=== PATIENT | female | born 1965 ===

== ENCOUNTER 2017-07-31 15:48 | Inpatient (IN) | payer OTHER ==
[2017-07-31] MEDS ORDERED: Etomidate 20 mg/10ml Inj IVP STA (15:55)
[2017-07-31] MEDS ORDERED: Succinylcholine 200 mg/10 ml Inj IV STA (15:55)
[2017-07-31] MEDS: Propofol 10 mg/ml 1,000 MG/100 ML VIAL IV PRN ×2 (16:10→21:45)
--- NOTE | 2017-07-31 16:11 | ED PDOC ---
Arrival/HPI - General Time Seen by Provider: 07/31/17 15:50 - Critical Care Critical Care Minutes: 45 minutes Narrative Critical Care (Text): Seen immediately upon my arrival for life threatening condition. Required my constant presence at bedside initially and frequent re-evaluations, ICU consultation. - History of Present Illness Narrative History of Present Illness (Text): 52 y/o F c unknown PMHx BIBEMS c respiratory distress. Patient was seen by bystander outside in respiratory distress and called EMS. EMS reports patient was agitated and uncooperative, required Ketamine. Decreased breath sounds, administered Magnesium, Terbutaline, solumedrol, and duoneb and placed on CPAP. Pulse oximetry improved from 70% to 100%. End tidal CO2 improved from 70s to 60s. Patient could only say "can't breathe." An inhaler was found at the site. Further HPI/ROS unobtainable due to patient's condition. Family/Social History Family/Social History: Unknown Family HX Allergies/Home Meds Allergies/Adverse Reactions: Allergies Unobtainable Allergy (Verified 07/31/17 15:50) Home Medications: Home Meds Medication Instructions Recorded Confirmed Unobtainable 07/31/17 07/31/17 Review of Systems - Review of Systems Systems not reviewed;Unavailable: Altered Mental Status Physical Exam - Physical Exam Narrative Physical Exam (Text): Gen: In respiratory distress Head: Atraumatic Eyes: PERRL ENT: Drooling Neck: Supple CV: Tachycardic Lungs: Decreased breath sounds. Minimal wheeze. Tachypneic. Accessory muscle use. Abd: Soft Extremities: No edema Skin: No rash Neuro: Obtunded Vital Signs Temp Pulse Resp BP Pulse Ox 07/31/17 17:21 110 H 20 109/62 99 07/31/17 17:12 104 H 20 132/82 99 07/31/17 16:07 99.7 F H 120 H 28 H 148/84 98 Medical Decision Making ED Course and Treatment: Intubated for impending respiratory failure. Propofol IV drip ordered. 07/31/17 16:50 HISTORY: intubated, dyspnea COMPARISON: No prior. FINDINGS: The endotracheal tube terminates 3.3 cm proximal to the carlene. LUNGS: There is severe pulmonary venous congestion and interstitial pulmonary edema with diffuse haziness in the right lung and consolidation in the right lower lobe. PLEURA: No significant pleural effusion identified, no pneumothorax apparent. CARDIOVASCULAR: Normal. OSSEOUS STRUCTURES: No significant abnormalities. VISUALIZED UPPER ABDOMEN: Normal. OTHER FINDINGS: None. IMPRESSION: Endotracheal tube terminates 3.3 cm proximal to the carlene. Severe pulmonary venous congestion and presumable right alveolar pulmonary edema. Dense consolidation in the right lower lobe. Patient's friend arrived in ED, states patient has smoking history and asthma. States they were walking dog together, patient began becoming short of breath, which is not unusual as per friend, left friend with dog to get inhaler and after 20 or so minutes of no return, friend headed back and saw that patient was being attended to by EMS. Patient with hypercarbia, pulmonary edema, afebrile, will cover with CAP antibiotics. Dr. Bartholomew accepts to medical service. - Lab Interpretations Lab Results: 07/31/17 16:00 07/31/17 16:00 Lab Results 07/31/17 16:43: Urine Color Yellow, Urine Appearance Sl cloudy, Urine pH 5.5, Ur Specific [place] >= 1.030, Urine Protein 30 H, Urine Glucose (UA) Negative, Urine Ketones Negative, Urine Blood Large H, Urine Nitrate Negative, Urine Bilirubin Negative, Urine Urobilinogen 0.2, Ur Leukocyte Esterase Negative, Urine RBC Tntc, Urine WBC 15 - 20, Ur Epithelial Cells Many, Amorphous Sediment Few, Urine Bacteria Mod, Urine HCG, Qual Negative 07/31/17 16:42: pCO2 54 H, pO2 404.0 H, HCO3 22.1, ABG pH 7.22 L, ABG Total CO2 23.8, ABG O2 Saturation 100.7 H, ABG O2 Content 20.5, ABG Base Excess -6.2 L, ABG Hemoglobin 14.3, ABG Carboxyhemoglobin 3.1 H, POC ABG HHb (Measured) -0.7 L , ABG Methemoglobin 1.1, ABG O2 Capacity 20.4, Hgb O2 Saturation 96.6, FiO2 100.0 07/31/17 16:00: Sodium 141, Potassium 3.9, Chloride 102, Carbon Dioxide 23, Anion Gap 20, BUN 17, Creatinine 0.8, Est GFR ( Amer) > 60, Est GFR (Non- Af Amer) > 60, Random Glucose 309 H*, Calcium 9.5, Total Bilirubin 0.8, AST 33, ALT 34, Alkaline Phosphatase 96, Total Creatine Kinase 110, Troponin I < 0.01, NT-Pro-B Natriuret Pep 416, Total Protein 8.0, Albumin 4.6, Globulin 3.4, Albumin/Globulin Ratio 1.3 07/31/17 16:00: WBC 14.2 H, RBC 5.08, Hgb 15.0, Hct 46.2, MCV 90.9, MCH 29.5, MCHC 32.5, RDW 13.6, Plt Count 372, MPV 11.2 H, Gran % 65.0, Lymph % (Auto) 29.7 , [place] % (Auto) 3.7, Eos % (Auto) 1.2 L, Baso % (Auto) 0.4, Gran # 9.23 H, Lymph # (Auto) 4.2 H, [place] # (Auto) 0.5, Eos # (Auto) 0.2, Baso # (Auto) 0.06 - RAD Interpretation Radiology Orders: 07/31/17 15:51 CHEST PORTABLE [RAD] Stat 08/01/17 07:00 CHEST PORTABLE [RAD] DAILY 08/02/17 07:00 CHEST PORTABLE [RAD] DAILY 08/03/17 07:00 CHEST PORTABLE [RAD] DAILY - Medication Orders Current Medication Orders: Albuterol/Ipratropium (Duoneb 3 Mg/0.5 Mg (3 Ml) Ud) 3 ml IH Q2H PRN PRN Reason: Shortness of Breath Albuterol/Ipratropium (Duoneb 3 Mg/0.5 Mg (3 Ml) Ud) 3 ml IH [id number] JUAN ALBERTO Enoxaparin Sodium (Lovenox) 40 mg SC DAILY JUAN ALBERTO PRN Reason: Protocol Furosemide (Lasix) 40 mg IVP DAILY JUAN ALBERTO Propofol (Diprivan) 1,000 mg in 100 mls @ 0 mls/hr IV .Q0M PRN; Protocol; 5 MCG /KG/MIN PRN Reason: TITRATE PER MD ORDER Midazolam 100 mg/100ml in NS (Midazolam 100 Mg/100ml In Ns) 100 mg in 100 mls @ 1 mls/hr IV .Q24H PRN; Protocol; 1 MG/HR PRN Reason: Sedation Last Admin: 07/31/17 17:50 Dose: 3 mls/hr Comments: titrated eMAR Start Stop Document 07/31/17 17:50 SF (Rec: 07/31/17 17:51 SF [id number]) Intravenous Solution Start Date 07/31/17 Start Time 17:50 Ceftriaxone Sodium (Rocephin 1 Gram Ivpb) 1 gm in 100 mls @ 100 mls/hr IVPB DAILY JUAN ALBERTO PRN Reason: Protocol Azithromycin (Zithromax 500mg In Ns) 500 mg in 250 mls @ 167 mls/hr IVPB DAILY JUAN ALBERTO PRN Reason: Protocol Fentanyl Citrate (Fentanyl Citrate/Sodium Chloride 1 Mg/100 Ml) 1,000 mcg in 100 mls @ 2 mls/hr IV .Q24H PRN; Protocol; 20 MCG/HR PRN Reason: TITRATE PER MD ORDER Insulin Human Regular (Humulin R Low) 0 units SC Q6 JUAN ALBERTO PRN Reason: Protocol Methylprednisolone (Solu-Medrol) 40 mg IVP Q8 JUAN ALBERTO Pantoprazole Sodium (Protonix Inj) 40 mg IVP DAILY JUAN ALBERTO Discontinued Medications Etomidate (Amidate) 20 mg IVP STAT STA Stop: 07/31/17 15:56 Last Admin: 07/31/17 15:48 Dose: 20 mg IVP Administration Document 07/31/17 15:48 SF (Rec: 07/31/17 17:55 SF [id number]) Charges for Administration # of IVP Administrations 1 Furosemide (Lasix) 40 mg IVP STAT STA Stop: 07/31/17 17:32 Ceftriaxone Sodium (Rocephin 1 Gram Ivpb) 1 gm in 100 mls @ 100 mls/hr IVPB STAT STA PRN Reason: Protocol Stop: 07/31/17 17:47 Last Admin: 07/31/17 17:10 Dose: 100 mls/hr eMAR Start Stop Document 07/31/17 17:10 SZA (Rec: 07/31/17 17:10 SZA [id number]) Intravenous Solution Start Date 07/31/17 Start Time 17:10 End Date 07/31/17 End time 17:40 Total Infusion Time 30 Azithromycin (Zithromax 500mg In Ns) 500 mg in 250 mls @ 167 mls/hr IVPB STAT STA PRN Reason: Protocol Stop: 07/31/17 18:17 Succinylcholine Chloride (Quelicin) 100 mg IV STAT STA Stop: 07/31/17 15:56 Last Admin: 07/31/17 15:48 Dose: 100 mg eMAR Start Stop Document 07/31/17 15:48 SF (Rec: 07/31/17 17:55 SF [id number]) Intravenous Solution Start Date 07/31/17 Start Time 13:42 End Date 07/31/17 Disposition/Present on Arrival - Present on Arrival Any Indicators Present on Arrival: No - Disposition Have Diagnosis and Disposition been Completed?: Yes Diagnosis: Respiratory failure, Hypercapnia, Pulmonary edema Disposition: HOSPITALIZED Disposition Time: 17:40 Patient Plan: ICU Condition: CRITICAL Endotracheal Intubation - Endotracheal Intubation Intubated With ETT Size: 75 Blade Type Used: Curved Indication: Respiratory Failure Intubated: Orally Pre-Intubation Airway Assessment: Ventilated And Oxygenated Medications Used During Pre-Intubation: Etomidate Paralyzed With: Succinylcholine Post-Intubation Assessment: ETT Secured AT (cm): (21), Breath Sounds Equal Bilat , Placement Confirmed Via CXR, Color Change W/End Tidal CO2 Detector, Oxygen Saturation: (100)
[2017-07-31 16:44] LABS: ARTERIAL BLOOD GAS HCO3 22.1 mmol/L (21-28); ARTERIAL BLOOD GAS HEMOGLOBIN 14.3 g/dL (11.7-17.4); ARTERIAL BLOOD GAS O2 CAPACITY 20.4 mL/dl (16-24); ARTERIAL BLOOD GAS O2 CONTENT 20.5 ML/dl (15-23); ARTERIAL BLOOD GAS O2 SAT 100.7 % (95-98); ARTERIAL BLOOD GAS PCO2 54 mm/Hg (35-45); ARTERIAL BLOOD GAS PH 7.22 (7.35-7.45); ARTERIAL BLOOD GAS TCO2 23.8 mmol.L (22-28)
--- NOTE | 2017-07-31 16:46 | RAD ---
HISTORY: intubated, dyspnea COMPARISON: No prior. FINDINGS: The endotracheal tube terminates 3.3 cm proximal to the carlene. LUNGS: There is severe pulmonary venous congestion and interstitial pulmonary edema with diffuse haziness in the right lung and consolidation in the right lower lobe. PLEURA: No significant pleural effusion identified, no pneumothorax apparent. CARDIOVASCULAR: Normal. OSSEOUS STRUCTURES: No significant abnormalities. VISUALIZED UPPER ABDOMEN: Normal. OTHER FINDINGS: None. IMPRESSION: Endotracheal tube terminates 3.3 cm proximal to the carlene. Severe pulmonary venous congestion and presumable right alveolar pulmonary edema. Dense consolidation in the right lower lobe.
[2017-07-31 16:47] LABS: BASO # 0.06 K/mm3 (0.0-2.0); BASO % 0.4 % (0.0-3.0); EOS # 0.2 (0.0-0.7); EOS % 1.2 % (1.5-5.0); GRAN # 9.23 (1.4-6.5); LYMPH # 4.2 (1.2-3.4); LYMPH % 29.7 % (22.0-35.0); MEAN CELL VOLUME 90.9 fl (80.0-105.0); MEAN CORPUSCULAR HEMOGLOBIN 29.5 pg (25.0-35.0); MEAN CORPUSCULAR HGB CONC 32.5 g/dl (31.0-37.0); MEAN PLATELET VOLUME 11.2 fl (7.0-11.0); MONO # 0.5 (0.1-0.6); MONO % 3.7 % (1.0-6.0); RBC 5.08 10^6/uL (3.5-6.1); RED CELL DISTRIBUTION WIDTH 13.6 % (11.5-14.5); WHITE BLOOD COUNT 14.2 10^3/ul (4.5-11.0)
[2017-07-31 16:48] LABS: PH,URINE 5.5 (4.7-8.0); URINE BILIRUBIN NEGATIVE (NEGATIVE); URINE BLOOD LARGE (NEGATIVE); URINE GLUCOSE (UA) NEGATIVE (NEGATIVE); URINE LEUKOCYTE ESTERASE NEGATIVE Leu/uL (NEGATIVE); URINE PROTEIN 30 mg/dL (<30 mg/dL); URINE UROBILINOGEN 0.2 E.U./dL (<1 E.U./dL)
[2017-07-31] MEDS ORDERED: cefTRIAXone 1 gm 1 GM/100 ML BAG IVPB STA (16:48)
[2017-07-31] MEDS ORDERED: Azithromycin 500MG/NS 250ml 500 MG/250 ML BAG IVPB STA (16:48)
[2017-07-31 16:54] LABS: URINE COLOR YELLOW (YELLOW)
[2017-07-31 16:55] LABS: URINE APPEARANCE SL CLOUDY (CLEAR)
[2017-07-31 17:03] LABS: URINE AMORPHOUS SEDIMENT FEW; URINE BACTERIA MOD (NEG); URINE EPITHELIAL CELLS MANY /hpf (0-5); URINE RBC TNTC /hpf (0-2); URINE WBC 15 - 20 /hpf (0-6)
[2017-07-31 17:09] LABS: B-TYPE NATRIURETIC PEPTIDE 416 pg/mL (0-450); TROPONIN I < 0.01 ng/mL
[2017-07-31] MEDS: Midazolam 100 mg/100ml in NS 100 MG/100 ML SOL IV PRN ×2 (17:10→17:50)
[2017-07-31 17:17] LABS: HCG,QUALITATIVE URINE NEGATIVE (NEGATIVE)
[2017-07-31 17:28] LABS: ALB/GLOB RATIO 1.3 (1.1-1.8); ALBUMIN 4.6 g/dL (3.0-4.8); ALT/SGPT 34 U/L (7-56); AST/SGOT 33 U/L (14-36); BLOOD UREA NITROGEN 17 mg/dL (7-21); CALCIUM 9.5 mg/dL (8.4-10.5); GFR AFRICAN-AMERICAN > 60; GFR NON-AFRICAN AMERICAN > 60
[2017-07-31] MEDS ORDERED: Albuterol-Ipratrop 3 mg / 0.5 (3 ml) UD IH PRN (17:36)
--- NOTE | 2017-07-31 17:56 | CP.PCM.CON ---
History of Present Illness - History of Present Illness History of Present Illness: CRITICAL CARE CONSULT NOTE HPI Patient is 52yo female with PMHx of Asthma, smoker 1 pk per day, presented to the ER by EMS with resp distress, stating " I can't breathe", agitated, uncooperative, requiring Ketamine in the field. Pt given Magnesium, Terbutaline , Duoneb, Solumedrol and placed on CPAP, with pulse ox improving from 70% to 100 %, but subsequently decompensated requiring intubation. Currently afebrile, HD stable, comfortable on ventilator, ABG acceptable, CXR with pulm vasc congestion PMHx as above PSHx as above Allergies NKDA Meds as per EMR ROS as above FHx NC Review of Systems - Review of Systems Review of Systems: as per HPI Past Patient History - Past Social History Smoking Status: Unknown If Ever Smoked - PULMONARY Hx Respiratory Disorders: Yes Hx Asthma: Yes - PSYCHIATRIC Hx Substance Use: No - SURGICAL HISTORY Hx Surgeries: No Meds Allergies/Adverse Reactions: Allergies Allergy/AdvReac Type Severity Reaction Status Date / Time Unobtainable Allergy Verified 07/31/17 15:50 - Medications Medications: Current Medications Albuterol/Ipratropium (Duoneb 3 Mg/0.5 Mg (3 Ml) Ud) 3 ml IH Q2H PRN PRN Reason: Shortness of Breath Albuterol/Ipratropium (Duoneb 3 Mg/0.5 Mg (3 Ml) Ud) 3 ml IH [id number] JUAN ALBERTO Propofol (Diprivan) 1,000 mg in 100 mls @ 0 mls/hr IV .Q0M PRN; Protocol; 5 MCG /KG/MIN PRN Reason: TITRATE PER MD ORDER Azithromycin (Zithromax 500mg In Ns) 500 mg in 250 mls @ 167 mls/hr IVPB STAT STA PRN Reason: Protocol Stop: 07/31/17 18:17 Midazolam 100 mg/100ml in NS (Midazolam 100 Mg/100ml In Ns) 100 mg in 100 mls @ 1 mls/hr IV .Q24H PRN; Protocol; 1 MG/HR PRN Reason: Sedation Last Admin: 07/31/17 17:10 Dose: 1 mls/hr Ceftriaxone Sodium (Rocephin 1 Gram Ivpb) 1 gm in 100 mls @ 100 mls/hr IVPB DAILY JUAN ALBERTO PRN Reason: Protocol Azithromycin (Zithromax 500mg In Ns) 500 mg in 250 mls @ 167 mls/hr IVPB DAILY JUAN ALBERTO PRN Reason: Protocol Methylprednisolone (Solu-Medrol) 40 mg IVP Q8 JUAN ALBERTO Pantoprazole Sodium (Protonix Inj) 40 mg IVP DAILY [facility] Physical Exam - Constitutional Appears: No Acute Distress - Head Exam Head Exam: NORMAL INSPECTION - Eye Exam Eye Exam: Normal appearance - ENT Exam ENT Exam: Mucous Membranes Moist - Respiratory Exam Respiratory Exam: Decreased Breath Sounds, Wheezes, NORMAL BREATHING PATTERN - Cardiovascular Exam Cardiovascular Exam: REGULAR RHYTHM, +S1, +S2 - GI/Abdominal Exam GI & Abdominal Exam: Normal Bowel Sounds, Soft - Extremities Exam Extremities exam: Positive for: normal inspection - Neurological Exam Additional comments: intubated, sedated Results - Vital Signs Recent Vital Signs: Last Vital Signs Temp 99.7 F H 07/31/17 16:07 Pulse 110 H 07/31/17 17:21 Resp 20 07/31/17 17:21 BP 109/62 07/31/17 17:21 Pulse Ox 99 07/31/17 17:21 - Labs Result Diagrams: 07/31/17 16:00 07/31/17 16:00 Labs: Laboratory Results - last 24 hr 07/31/17 07/31/17 07/31/17 16:00 16:00 16:42 WBC 14.2 H RBC 5.08 Hgb 15.0 Hct 46.2 MCV 90.9 MCH 29.5 MCHC 32.5 RDW 13.6 Plt Count 372 MPV 11.2 H Gran % 65.0 Lymph % (Auto) 29.7 [place] % (Auto) 3.7 Eos % (Auto) 1.2 L Baso % (Auto) 0.4 Gran # 9.23 H Lymph # (Auto) 4.2 H [place] # (Auto) 0.5 Eos # (Auto) 0.2 Baso # (Auto) 0.06 pCO2 54 H pO2 404.0 H HCO3 22.1 ABG pH 7.22 L ABG Total CO2 23.8 ABG O2 Saturation 100.7 H ABG O2 Content 20.5 ABG Base Excess -6.2 L ABG Hemoglobin 14.3 ABG Carboxyhemoglobin 3.1 H POC ABG HHb (Measured) -0.7 L ABG Methemoglobin 1.1 ABG O2 Capacity 20.4 Hgb O2 Saturation 96.6 FiO2 100.0 Sodium 141 Potassium 3.9 Chloride 102 Carbon Dioxide 23 Anion Gap 20 BUN 17 Creatinine 0.8 Est GFR ( Amer) > 60 Est GFR (Non-Af Amer) > 60 Random Glucose 309 H* Calcium 9.5 Total Bilirubin 0.8 AST 33 ALT 34 Alkaline Phosphatase 96 Total Creatine Kinase 110 Troponin I < 0.01 NT-Pro-B Natriuret Pep 416 Total Protein 8.0 Albumin 4.6 Globulin 3.4 Albumin/Globulin Ratio 1.3 Urine Color Urine Appearance Urine pH Ur Specific [place] Urine Protein Urine Glucose (UA) Urine Ketones Urine Blood Urine Nitrate Urine Bilirubin Urine Urobilinogen Ur Leukocyte Esterase Urine RBC Urine WBC Ur Epithelial Cells Amorphous Sediment Urine Bacteria Urine HCG, Qual 07/31/17 16:43 WBC RBC Hgb Hct MCV MCH MCHC RDW Plt Count MPV Gran % Lymph % (Auto) [place] % (Auto) Eos % (Auto) Baso % (Auto) Gran # Lymph # (Auto) [place] # (Auto) Eos # (Auto) Baso # (Auto) pCO2 pO2 HCO3 ABG pH ABG Total CO2 ABG O2 Saturation ABG O2 Content ABG Base Excess ABG Hemoglobin ABG Carboxyhemoglobin POC ABG HHb (Measured) ABG Methemoglobin ABG O2 Capacity Hgb O2 Saturation FiO2 Sodium Potassium Chloride Carbon Dioxide Anion Gap BUN Creatinine Est GFR ( Amer) Est GFR (Non-Af Amer) Random Glucose Calcium Total Bilirubin AST ALT Alkaline Phosphatase Total Creatine Kinase Troponin I NT-Pro-B Natriuret Pep Total Protein Albumin Globulin Albumin/Globulin Ratio Urine Color Yellow Urine Appearance Sl cloudy Urine pH 5.5 Ur Specific [place] >= 1.030 Urine Protein 30 H Urine Glucose (UA) Negative Urine Ketones Negative Urine Blood Large H Urine Nitrate Negative Urine Bilirubin Negative Urine Urobilinogen 0.2 Ur Leukocyte Esterase Negative Urine RBC Tntc Urine WBC 15 - 20 Ur Epithelial Cells Many Amorphous Sediment Few Urine Bacteria Mod Urine HCG, Qual Negative - Imaging and Cardiology Chest x-ray Status: Image reviewed by me, Report reviewed by me Assessment & Plan - Assessment and Plan (Free Text) Assessment: 52yo female a/w respiratory failure Respiratory failure, Hypoxic, Hypercapnic Asthma exacerbation SOB Pulm edema recommend: - cont with ventilatory support, ABG acceptable, decrease TV, low tidal vol ventilation, daily ABG, CXR - Solumedrol 40mg IV q8hr - Cover for CAP, Rocephin, Azithro - rule out FLU - Duonebs q4hr standing - given CXR findings (pulm vasc congestion), would give Lasix 40mg IV x 1 - Check Procal, Sputum culture, UCx, BCx - monitor HH - FS control - I/Os - BP control - sedation - ECHO - GI ppx - DVT ppx - Critical, Admit to MICU Critical care time 35 minutes
[2017-07-31] MEDS ORDERED: Fentanyl 1000mcg/100ml NS 1,000 MCG/100 ML BAG IV PRN (18:05)
--- NOTE | 2017-07-31 18:18 | CP.PCM.HP ---
<Kasandra Nichols - Last Filed: 07/31/17 18:37> History of Present Illness - History of Present Illness History of Present Illness: CC: Respiratory distress Per ER note, patient was brought in by EMS for respiratory distress. Bystander called EMS. EMS stated patient was agitated and uncooperative and required Ketamine. Patient said she couldn't breath. Pulse ox was down to 70s in ED, patient was intubated and sedated. Further history unable to obtain due to the fact that patient's friend did not know the history. Patient's friend said Aunt Leatha Brock: [phone] and friend Ranulfo Luong is friend's name Patient was intubated in ED and on versed for sedation Friend states patient smokes, does not drink or do illicit drugs Present on Admission - Present on Admission Any Indicators Present on Admission: No History of DVT/PE: No History of Uncontrolled Diabetes: No Urinary Catheter: No Past Patient History - Past Social History Smoking Status: Unknown If Ever Smoked - PULMONARY Hx Respiratory Disorders: Yes Hx Asthma: Yes - PSYCHIATRIC Hx Substance Use: No - SURGICAL HISTORY Hx Surgeries: No Meds Allergies/Adverse Reactions: Allergies Allergy/AdvReac Type Severity Reaction Status Date / Time Unobtainable Allergy Verified 07/31/17 21:58 Physical Exam - Constitutional Appears: No Acute Distress - Head Exam Head Exam: NORMAL INSPECTION, NORMOCEPHALIC - Eye Exam Eye Exam: EOMI, Normal appearance Pupil Exam: NORMAL ACCOMODATION - ENT Exam ENT Exam: Mucous Membranes Moist - Neck Exam Neck exam: Positive for: Full Rom. Negative for: Tenderness - Respiratory Exam Respiratory Exam: Rales, Rhonchi, NORMAL BREATHING PATTERN. absent: Decreased Breath Sounds - Cardiovascular Exam Cardiovascular Exam: REGULAR RHYTHM, +S1, +S2. absent: Bradycardia, Tachycardia - GI/Abdominal Exam GI & Abdominal Exam: Distended, Normal Bowel Sounds, Soft. absent: Tenderness - Extremities Exam Extremities exam: Positive for: full ROM, normal capillary refill, normal inspection, pedal pulses present. Negative for: pedal edema Additional comments: tattoos nonerythematous, no signs of purulence, drainage, infection - Back Exam Back exam: FULL ROM, NORMAL INSPECTION - Neurological Exam Neurological exam: CN II-XII Intact Additional comments: unable to fully assess because patient is intubated - Psychiatric Exam Psychiatric exam: Normal Affect, Normal Mood - Skin Skin Exam: Dry, Intact, Normal Color, Warm Results - Vital Signs Recent Vital Signs: Last Vital Signs Temp 99.7 F H 07/31/17 16:07 Pulse 110 H 07/31/17 17:21 Resp 20 07/31/17 17:21 BP 109/62 07/31/17 17:21 Pulse Ox 99 07/31/17 17:21 - Labs Result Diagrams: 07/31/17 16:00 07/31/17 16:00 Labs: Laboratory Results - last 24 hr 07/31/17 07/31/17 07/31/17 16:00 16:00 16:42 WBC 14.2 H RBC 5.08 Hgb 15.0 Hct 46.2 MCV 90.9 MCH 29.5 MCHC 32.5 RDW 13.6 Plt Count 372 MPV 11.2 H Gran % 65.0 Lymph % (Auto) 29.7 [place] % (Auto) 3.7 Eos % (Auto) 1.2 L Baso % (Auto) 0.4 Gran # 9.23 H Lymph # (Auto) 4.2 H [place] # (Auto) 0.5 Eos # (Auto) 0.2 Baso # (Auto) 0.06 pCO2 54 H pO2 404.0 H HCO3 22.1 ABG pH 7.22 L ABG Total CO2 23.8 ABG O2 Saturation 100.7 H ABG O2 Content 20.5 ABG Base Excess -6.2 L ABG Hemoglobin 14.3 ABG Carboxyhemoglobin 3.1 H POC ABG HHb (Measured) -0.7 L ABG Methemoglobin 1.1 ABG O2 Capacity 20.4 Hgb O2 Saturation 96.6 FiO2 100.0 Sodium 141 Potassium 3.9 Chloride 102 Carbon Dioxide 23 Anion Gap 20 BUN 17 Creatinine 0.8 Est GFR ( Amer) > 60 Est GFR (Non-Af Amer) > 60 Random Glucose 309 H* Calcium 9.5 Total Bilirubin 0.8 AST 33 ALT 34 Alkaline Phosphatase 96 Total Creatine Kinase 110 Troponin I < 0.01 NT-Pro-B Natriuret Pep 416 Total Protein 8.0 Albumin 4.6 Globulin 3.4 Albumin/Globulin Ratio 1.3 Urine Color Urine Appearance Urine pH Ur Specific [place] Urine Protein Urine Glucose (UA) Urine Ketones Urine Blood Urine Nitrate Urine Bilirubin Urine Urobilinogen Ur Leukocyte Esterase Urine RBC Urine WBC Ur Epithelial Cells Amorphous Sediment Urine Bacteria Urine HCG, Qual 07/31/17 16:43 WBC RBC Hgb Hct MCV MCH MCHC RDW Plt Count MPV Gran % Lymph % (Auto) [place] % (Auto) Eos % (Auto) Baso % (Auto) Gran # Lymph # (Auto) [place] # (Auto) Eos # (Auto) Baso # (Auto) pCO2 pO2 HCO3 ABG pH ABG Total CO2 ABG O2 Saturation ABG O2 Content ABG Base Excess ABG Hemoglobin ABG Carboxyhemoglobin POC ABG HHb (Measured) ABG Methemoglobin ABG O2 Capacity Hgb O2 Saturation FiO2 Sodium Potassium Chloride Carbon Dioxide Anion Gap BUN Creatinine Est GFR ( Amer) Est GFR (Non-Af Amer) Random Glucose Calcium Total Bilirubin AST ALT Alkaline Phosphatase Total Creatine Kinase Troponin I NT-Pro-B Natriuret Pep Total Protein Albumin Globulin Albumin/Globulin Ratio Urine Color Yellow Urine Appearance Sl cloudy Urine pH 5.5 Ur Specific [place] >= 1.030 Urine Protein 30 H Urine Glucose (UA) Negative Urine Ketones Negative Urine Blood Large H Urine Nitrate Negative Urine Bilirubin Negative Urine Urobilinogen 0.2 Ur Leukocyte Esterase Negative Urine RBC Tntc Urine WBC 15 - 20 Ur Epithelial Cells Many Amorphous Sediment Few Urine Bacteria Mod Urine HCG, Qual Negative Assessment & Plan - Assessment and Plan (Free Text) Assessment: Patient is 52F with PMHx of Asthma, smoker (1 pack per day), presented to the ER by EMS with respiratory distress and was intubated in the emergency room. Neuro: Sedation: propofol 5mcg/kg/min, held for low blood pressure versed Respiratory distress abg 7.22, 54 pCO2, HCO3 22.1 intubated PRVC TV 450 PEEP 5 RR 18 FiO2 100% blood culture, urine culture ABG procalcitonin duonebs 3cc IH Q2H PRN 3cc H Q6H ID consult: Dr. Neil Marquez 1gm QD azithro 500mg IVPB daily Pain Fentanyl 1000mcg IV 20mcg/hr DM Humalin SS SC Q6H methylprednisolone 40mg IVP Q8H Prophylaxis lovenox 40mg SC Daily Protonix 40mg IVP daily - Date & Time Date: 07/31/17 Time: 18:41 <Lyubov Bartholomew - Last Filed: 08/01/17 07:55> Results - Vital Signs Recent Vital Signs: Last Vital Signs Temp 100.3 F H 08/01/17 07:00 Pulse 96 H 08/01/17 07:00 Resp 13 08/01/17 07:24 BP 107/50 L 08/01/17 07:00 Pulse Ox 95 08/01/17 07:24 - Labs Result Diagrams: 07/31/17 16:00 08/01/17 05:45 Labs: Laboratory Results - last 24 hr 07/31/17 07/31/17 07/31/17 18:46 18:48 22:53 pCO2 pO2 HCO3 ABG pH ABG Total CO2 ABG O2 Saturation ABG O2 Content ABG Base Excess ABG Hemoglobin ABG Carboxyhemoglobin POC ABG HHb (Measured) ABG Methemoglobin ABG O2 Capacity Hgb O2 Saturation FiO2 Sodium Potassium Chloride Carbon Dioxide Anion Gap BUN Creatinine Est GFR ( Amer) Est GFR (Non-Af Amer) POC Glucose (mg/dL) 171 H 165 H Random Glucose Calcium Phosphorus Magnesium Total Bilirubin AST ALT Alkaline Phosphatase Total Protein Albumin Globulin Albumin/Globulin Ratio Influenza Typ A,B (EIA) Negative for flu a/b 08/01/17 08/01/17 08/01/17 05:25 05:45 05:45 pCO2 38 pO2 99.0 HCO3 24.6 ABG pH 7.42 ABG Total CO2 25.8 ABG O2 Saturation 99.6 H ABG O2 Content 16.7 ABG Base Excess 0.3 ABG Hemoglobin 12.3 ABG Carboxyhemoglobin 2.2 H POC ABG HHb (Measured) 0.4 ABG Methemoglobin 1.5 ABG O2 Capacity 16.8 Hgb O2 Saturation 95.8 FiO2 40.0 Sodium 141 Potassium 3.8 Chloride 106 Carbon Dioxide 25 Anion Gap 14 BUN 24 H Creatinine 0.8 Est GFR ( Amer) > 60 Est GFR (Non-Af Amer) > 60 POC Glucose (mg/dL) 141 H Random Glucose 164 H Calcium 8.9 Phosphorus 3.6 Magnesium 2.1 Total Bilirubin 0.7 AST 27 ALT 36 Alkaline Phosphatase 68 Total Protein 6.4 Albumin 3.7 Globulin 2.7 Albumin/Globulin Ratio 1.4 Influenza Typ A,B (EIA) Attending/Attestation - Attestation I have personally seen and examined this patient.: Yes I have fully participated in the care of the patient.: Yes I have reviewed all pertinent clinical information: Yes Notes (Text): 08/01/17 07:48 Attending note; Patient seen and examined with resident in the ER. Patient is currently intubated. History from ER attending and friend. Patient is a 52-year-old female with PMHx of Asthma, smoker presented to the ER by EMS with respiratory distress and was intubated in the emergency room. The patient was apparently walking her dog and had an acute asthma attack. The patient was immediately brought to the ER. Currently intubated. As per patient's friend she uses only inhaler. No other medical history of available. No recent admission in the hospital. Chest x-ray bilateral infiltrates. Started on IV Antibiotics. Patient will be closely monitored in ICU. Weaning protocol. Case discussed with patient's friend ranulfo luong by the bedside.
[2017-07-31] MEDS ORDERED: Insulin Regular 1 UNITS/0.01 ML ML ONE ×2 (19:07→19:08)
[2017-07-31] MEDS: Insulin Reg-LOW-Coverage SC SCH ×2 (19:11→23:01)
[2017-07-31] MEDS: Albuterol-Ipratrop 3 mg / 0.5 (3 ml) UD IH SCH (21:20)
[2017-07-31 22:28] VITALS: BMI 30.9
[2017-07-31] MEDS ORDERED: Influenza Vaccine 60 mcg/0.5 mL SYR (4YR UP) IM ONE (22:28)
[2017-07-31] MEDS ORDERED: Pneumococcal 23-Valent Vaccine IM ONE (22:28)
[2017-07-31] MEDS: MethylPREDNISolone 40 mg Vial IVP SCH (22:55)
[2017-08-01] MEDS: Albuterol-Ipratrop 3 mg / 0.5 (3 ml) UD IH SCH ×4 (01:21→20:56)
[2017-08-01] MEDS: Insulin Reg-LOW-Coverage SC SCH ×4 (05:34→22:10)
[2017-08-01 06:05] LABS: ARTERIAL BLOOD GAS HCO3 24.6 mmol/L (21-28); ARTERIAL BLOOD GAS HEMOGLOBIN 12.3 g/dL (11.7-17.4); ARTERIAL BLOOD GAS O2 CAPACITY 16.8 mL/dl (16-24); ARTERIAL BLOOD GAS O2 CONTENT 16.7 ML/dl (15-23); ARTERIAL BLOOD GAS O2 SAT 99.6 % (95-98); ARTERIAL BLOOD GAS PCO2 38 mm/Hg (35-45); ARTERIAL BLOOD GAS PH 7.42 (7.35-7.45); ARTERIAL BLOOD GAS TCO2 25.8 mmol.L (22-28)
[2017-08-01] MEDS: MethylPREDNISolone 40 mg Vial IVP SCH ×3 (06:13→22:09)
[2017-08-01 06:52] LABS: GRAN # 15.77 (1.4-6.5); GRAN % 92.9 % (50.0-68.0); HEMOGLOBIN 12.2 g/dL (12.0-16.0); LYMPH # 0.8 (1.2-3.4); LYMPH % 4.9 % (22.0-35.0); MEAN CELL VOLUME 88.7 fl (80.0-105.0); MEAN CORPUSCULAR HEMOGLOBIN 28.8 pg (25.0-35.0); MEAN CORPUSCULAR HGB CONC 32.4 g/dl (31.0-37.0); MEAN PLATELET VOLUME 10.9 fl (7.0-11.0); MONO # 0.4 (0.1-0.6); MONO % 2.2 % (1.0-6.0); PLATELET COUNT 250 10^3/uL (120.0-450.0); RBC 4.24 10^6/uL (3.5-6.1); RED CELL DISTRIBUTION WIDTH 13.7 % (11.5-14.5)
--- NOTE | 2017-08-01 06:53 | CP.CCUPN ---
<Tonja Rodriguez - Last Filed: 08/01/17 09:36> CCU Subjective - Physician Review Subjective (Free Text): 08/01/17 09:25 Patient was brought in by ambulance yesterday after being found by a bystander in respiratory distress. Patient was intubated in the ED for airway protection. Patient was found to have flash pulm edema on chest x-ray. Patient was admitted to icu for management and monitoring. No acute events overnight. Patient underwent sedation vacation this morning, was placed on pressor support which patient tolerated well with RSB of 60. Patient was successfully extubated to nasal cannula and is saturating well. CCU Objective - Vital Signs / Intake & Output Vital Signs (Last 4 hours): Vital Signs Temp Pulse Resp BP Pulse Ox 08/01/17 06:10 87 96 08/01/17 06:00 84 103/50 L 08/01/17 05:59 89 96 08/01/17 05:50 89 96 08/01/17 05:40 88 95 08/01/17 05:30 88 95 08/01/17 05:20 87 96 08/01/17 05:10 86 96 08/01/17 05:00 97/44 L 08/01/17 04:59 87 96 08/01/17 04:50 87 95 08/01/17 04:40 86 95 08/01/17 04:30 84 95 08/01/17 04:20 84 95 08/01/17 04:10 85 95 08/01/17 04:00 100 F H 85 15 95/46 L 96 08/01/17 03:59 86 95 08/01/17 03:50 86 96 08/01/17 03:40 85 96 08/01/17 03:30 85 95 08/01/17 03:20 84 95 08/01/17 03:10 85 96 08/01/17 03:00 97/51 L 08/01/17 02:59 86 96 Intake and Output (Last 8hrs): Intake & Output 07/31/17 07/31/17 08/01/17 14:59 22:59 06:59 Intake Total 100 548 Output Total 1100 Balance 100 -552 Weight 180 lb 188 lb 3 oz Intake: IV 100 548 Left Antecubital 100 Left Hand 200 Right Hand 100 Output: Urine 1100 2-way Urethral 1100 Other: Voiding Method Toilet - Physical Exam Head: Positive for: Atraumatic, Normocephalic Pupils: Positive for: PERRL Extroacular Muscles: Positive for: EOMI Conjunctiva: Positive for: Normal Mouth: Positive for: Moist Mucous Membranes Pharnyx: Positive for: Normal Nose (External): Positive for: Atraumatic Neck: Positive for: Normal Range of Motion Respiratory/Chest: Positive for: Clear to Auscultation, Good Air Exchange. Negative for: Respiratory Distress, Accessory Muscle Use, Wheezes, Rales, Retracting, Rhonchi, Tachypneic, Tender to Palpation Cardiovascular: Positive for: Regular Rate and Rhythm, Murmurs, Normal S1, S2. Negative for: Tachycardic, Bradycardic, Rub, Gallop, Muffled Abdomen: Positive for: Normal Bowel Sounds. Negative for: Tenderness, Distention, Peritoneal Signs, Rebound Upper Extremity: Positive for: Normal Inspection. Negative for: Cyanosis, Edema Lower Extremity: Positive for: Normal Inspection. Negative for: Edema Neurological: Positive for: GCS=15, CN II-XII Intact, Speech Normal Skin: Positive for: Warm, Dry, Rashes, Normal Color Psychiatric: Positive for: Alert, Oriented x 3, Normal Insight, Normal Concentration - Medications Active Medications: Active Medications Generic Name Dose Route Start Last Admin Trade Name Freq PRN Reason Stop Dose Admin Albuterol/Ipratropium 3 ml 07/31/17 17:36 Duoneb 3 Mg/0.5 Mg (3 Ml) Ud IH Q2H PRN Shortness of Breath Albuterol/Ipratropium 3 ml 07/31/17 20:00 08/01/17 01:21 Duoneb 3 Mg/0.5 Mg (3 Ml) Ud IH 3 ml [id number] JUAN ALBERTO Administration Enoxaparin Sodium 40 mg 08/01/17 10:00 Lovenox SC DAILY JUAN ALBERTO Protocol Furosemide 40 mg 08/01/17 10:00 Lasix IVP DAILY JUAN ALBERTO Propofol 1,000 mg in 100 mls @ 0 mls/hr 07/31/17 16:06 08/01/17 05:00 Diprivan IV Infused .Q0M PRN Titration TITRATE PER MD ORDER Protocol 5 MCG/KG/MIN Midazolam 100 mg/100ml in NS 100 mg in 100 mls @ 1 mls/hr 07/31/17 16:52 01/11 02:00 Midazolam 100 Mg/100ml In Ns IV 4 mg/hr .Q24H PRN 4 mls/hr Sedation Titration Protocol 1 MG/HR Ceftriaxone Sodium 1 gm in 100 mls @ 100 mls/hr 08/01/17 10:00 Rocephin 1 Gram Ivpb IVPB DAILY JUAN ALBERTO Protocol Azithromycin 500 mg in 250 mls @ 167 mls/hr 08/01/17 10:00 Zithromax 500mg In Ns IVPB DAILY JUAN ALBERTO Protocol Fentanyl Citrate 1,000 mcg in 100 mls @ 2 mls/hr 07/31/17 18:05 08/01/17 06: 00 Fentanyl Citrate/Sodium Chloride 1 Mg/100 Ml IV 60 mcg/hr .Q24H PRN 6 mls/hr TITRATE PER MD ORDER Titration Protocol 20 MCG/HR Insulin Human Regular 0 units 07/31/17 18:00 08/01/17 05:34 Humulin R Low SC Not Given Q6 JUAN ALBERTO Protocol Methylprednisolone 40 mg 07/31/17 22:00 08/01/17 06:13 Solu-Medrol IVP 40 mg Q8 JUAN ALBERTO Administration Pantoprazole Sodium 40 mg 08/01/17 10:00 Protonix Inj IVP DAILY JUAN ALBERTO - Patient Studies Lab Studies: Lab Studies 08/01/17 08/01/17 07/31/17 Range/Units 05:45 05:25 22:53 pCO2 38 (35-45) mm/Hg pO2 99.0 (80-100) mm/Hg HCO3 24.6 (21-28) mmol/L ABG pH 7.42 (7.35-7.45) ABG Total CO2 25.8 (22-28) mmol.L ABG O2 Saturation 99.6 H (95-98) % ABG O2 Content 16.7 (15-23) ML/dl ABG Base Excess 0.3 (-2.0-3.0) mmol/L ABG Hemoglobin 12.3 (11.7-17.4) g/dL ABG Carboxyhemoglobin 2.2 H (0.5-1.5) % POC ABG HHb (Measured) 0.4 (0-5) % ABG Methemoglobin 1.5 (0.0-3.0) % ABG O2 Capacity 16.8 (16-24) mL/dl Hgb O2 Saturation 95.8 (95.0-98.0) % FiO2 40.0 % POC Glucose (mg/dL) 141 H 165 H (65-110) mg/dL Influenza Typ A,B (EIA) (NEGATIVE) 07/31/17 07/31/17 Range/Units 18:48 18:46 pCO2 (35-45) mm/Hg pO2 (80-100) mm/Hg HCO3 (21-28) mmol/L ABG pH (7.35-7.45) ABG Total CO2 (22-28) mmol.L ABG O2 Saturation (95-98) % ABG O2 Content (15-23) ML/dl ABG Base Excess (-2.0-3.0) mmol/L ABG Hemoglobin (11.7-17.4) g/dL ABG Carboxyhemoglobin (0.5-1.5) % POC ABG HHb (Measured) (0-5) % ABG Methemoglobin (0.0-3.0) % ABG O2 Capacity (16-24) mL/dl Hgb O2 Saturation (95.0-98.0) % FiO2 % POC Glucose (mg/dL) 171 H (65-110) mg/dL Influenza Typ A,B (EIA) Negative for flu a/b (NEGATIVE) Laboratory Results - last 24 hr 07/31/17 07/31/17 07/31/17 18:46 18:48 22:53 pCO2 pO2 HCO3 ABG pH ABG Total CO2 ABG O2 Saturation ABG O2 Content ABG Base Excess ABG Hemoglobin ABG Carboxyhemoglobin POC ABG HHb (Measured) ABG Methemoglobin ABG O2 Capacity Hgb O2 Saturation FiO2 POC Glucose (mg/dL) 171 H 165 H Influenza Typ A,B (EIA) Negative for flu a/b 08/01/17 08/01/17 05:25 05:45 pCO2 38 pO2 99.0 HCO3 24.6 ABG pH 7.42 ABG Total CO2 25.8 ABG O2 Saturation 99.6 H ABG O2 Content 16.7 ABG Base Excess 0.3 ABG Hemoglobin 12.3 ABG Carboxyhemoglobin 2.2 H POC ABG HHb (Measured) 0.4 ABG Methemoglobin 1.5 ABG O2 Capacity 16.8 Hgb O2 Saturation 95.8 FiO2 40.0 POC Glucose (mg/dL) 141 H Influenza Typ A,B (EIA) Fingerstick Blood Sugar Results: 141 Results Reviewed to Date: Yes Assessment/Plan - Assessment and Plan (Free Text) Assessment: Patient is a 52yo female with pmhx of asthma and diabetes admitted with hypoxic and hypercapnic respiratory failure likely due to asthma exacerbation and flash pulm edema s/p intubatution. Patient was placed on pressor support this morning , tolerated it well, and was extubated to nasal cannula. Patient is currently alert and awake and is saturating 96% on nasal cannula. Plan: Neuro: speaking in full sentences, now at baseline. Pulm: hypercapneic and hypoxemic respiratory failure likely due to asthma exacerbation with flash pulm edema. Patient is s/p extubation - ABG and chest x-ray reviewed. - will taper down solumedrol to 40 q12, d/c lasix - continue bronchodilators. - continue with antibiotics. cardiac: r/o chf, pending echo. Maintain MAP above 65%. ID: leukocytosis, low grade fever, influenza negative. r/o pna, procal pending. continue Rocephin and Zithromax. Renal: renal function stable, will continue to monitor. Endo: DM- on insulin sliding scale, and fingersticks q6. Gi: will start po feeding. ppi for gi prophylaxis. Heme: leukocytosis trended up likely due to steroid. h/h stable, will continue monitor. DVT prophylaxis: Lovenox sc. Dispo: Will transfer patient to tele if patient remains hemodynamically stable and continue to saturate well on nasal cannula. Patient seen, examined and case discussed with the director channel. - Date & Time Date: 08/01/17 Time: 09:45 <Edvin Humphrey - Last Filed: 08/01/17 09:52> CCU Objective - Vital Signs / Intake & Output Vital Signs (Last 4 hours): Vital Signs Temp Pulse Resp BP Pulse Ox 08/01/17 08:40 100 H 21 94 L 08/01/17 08:30 101 H 22 93 L 08/01/17 08:23 25 H 94 L 08/01/17 08:20 104 H 20 95 08/01/17 08:10 97 H 96 08/01/17 08:00 111/60 08/01/17 07:59 97 H 96 08/01/17 07:50 102 H 96 08/01/17 07:40 94 H 95 08/01/17 07:30 94 H 95 08/01/17 07:24 13 95 08/01/17 07:20 99 H 15 95 08/01/17 07:10 82 96 08/01/17 07:00 100.3 F H 86 15 107/50 L 96 08/01/17 06:50 83 96 08/01/17 06:40 84 96 08/01/17 06:30 84 96 08/01/17 06:20 85 95 08/01/17 06:10 87 96 08/01/17 06:00 84 103/50 L 08/01/17 05:59 89 96 Intake and Output (Last 8hrs): Intake & Output 07/31/17 08/01/17 08/01/17 22:59 06:59 14:59 Intake Total 100 548 26 Output Total 1100 Balance 100 -552 26 Weight 180 lb 188 lb 3 oz Intake: IV 100 548 26 Left Antecubital 100 Left Hand 200 Right Hand 100 Output: Urine 1100 2-way Urethral 1100 Other: Voiding Method Toilet - Medications Active Medications: Active Medications Generic Name Dose Route Start Last Admin Trade Name Freq PRN Reason Stop Dose Admin Albuterol/Ipratropium 3 ml 07/31/17 17:36 Duoneb 3 Mg/0.5 Mg (3 Ml) Ud IH Q2H PRN Shortness of Breath Albuterol/Ipratropium 3 ml 07/31/17 20:00 08/01/17 07:17 Duoneb 3 Mg/0.5 Mg (3 Ml) Ud IH 3 ml [id number] JUAN ALBERTO Administration Enoxaparin Sodium 40 mg 08/01/17 10:00 Lovenox SC DAILY JUAN ALBERTO Protocol Propofol 1,000 mg in 100 mls @ 0 mls/hr 07/31/17 16:06 08/01/17 05:00 Diprivan IV Infused .Q0M PRN Titration TITRATE PER MD ORDER Protocol 5 MCG/KG/MIN Ceftriaxone Sodium 1 gm in 100 mls @ 100 mls/hr 08/01/17 10:00 Rocephin 1 Gram Ivpb IVPB DAILY JUAN ALBERTO Protocol Azithromycin 500 mg in 250 mls @ 167 mls/hr 08/01/17 10:00 Zithromax 500mg In Ns IVPB DAILY JUAN ALBERTO Protocol Acetaminophen 1,000 mg in 100 mls @ 400 mls/hr 08/01/17 07:03 08/01/17 07:11 Ofirmev IVPB 08/03/17 07:04 400 mls/hr Q6H PRN Administration Temp>100 Insulin Human Regular 0 units 07/31/17 18:00 08/01/17 05:34 Humulin R Low SC Not Given Q6 JUAN ALBERTO Protocol Methylprednisolone 40 mg 08/01/17 10:00 Solu-Medrol IVP Q12 JUAN ALBERTO Pantoprazole Sodium 40 mg 08/01/17 10:00 Protonix Inj IVP DAILY JUAN ALBERTO - Patient Studies Lab Studies: Lab Studies 08/01/17 08/01/17 08/01/17 Range/Units 05:45 05:45 05:45 WBC 17.0 H (4.5-11.0) 10^3/ul RBC 4.24 (3.5-6.1) 10^6/uL Hgb 12.2 D (12.0-16.0) g/dL Hct 37.6 (36.0-48.0) % MCV 88.7 (80.0-105.0) fl MCH 28.8 (25.0-35.0) pg MCHC 32.4 (31.0-37.0) g/dl RDW 13.7 (11.5-14.5) % Plt Count 250 (120.0-450.0) 10^3/uL MPV 10.9 (7.0-11.0) fl Gran % 92.9 H (50.0-68.0) % Lymph % (Auto) 4.9 L (22.0-35.0) % [place] % (Auto) 2.2 (1.0-6.0) % Eos % (Auto) 0.0 L (1.5-5.0) % Baso % (Auto) 0.0 (0.0-3.0) % Gran # 15.77 H (1.4-6.5) Lymph # (Auto) 0.8 L (1.2-3.4) [place] # (Auto) 0.4 (0.1-0.6) Eos # (Auto) 0.0 (0.0-0.7) Baso # (Auto) 0.00 (0.0-2.0) K/mm3 Neutrophils % (Manual) 93 H (50.0-70.0) % Lymphocytes % (Manual) 5 L (22.0-35.0) % Monocytes % (Manual) 2 (1.0-6.0) % Platelet Evaluation Normal (NORMAL) Anisocytosis (manual) Slight pCO2 38 (35-45) mm/Hg pO2 99.0 (80-100) mm/Hg HCO3 24.6 (21-28) mmol/L ABG pH 7.42 (7.35-7.45) ABG Total CO2 25.8 (22-28) mmol.L ABG O2 Saturation 99.6 H (95-98) % ABG O2 Content 16.7 (15-23) ML/dl ABG Base Excess 0.3 (-2.0-3.0) mmol/L ABG Hemoglobin 12.3 (11.7-17.4) g/dL ABG Carboxyhemoglobin 2.2 H (0.5-1.5) % POC ABG HHb (Measured) 0.4 (0-5) % ABG Methemoglobin 1.5 (0.0-3.0) % ABG O2 Capacity 16.8 (16-24) mL/dl Hgb O2 Saturation 95.8 (95.0-98.0) % FiO2 40.0 % Sodium 141 (132-148) mmol/L Potassium 3.8 (3.6-5.0) mmol/L Chloride 106 (98-107) mmol/L Carbon Dioxide 25 (21-33) mmol/L Anion Gap 14 (10-20) BUN 24 H (7-21) mg/dL Creatinine 0.8 (0.7-1.2) mg/dl Est GFR ( Amer) > 60 Est GFR (Non-Af Amer) > 60 POC Glucose (mg/dL) (65-110) mg/dL Random Glucose 164 H (70-110) mg/dL Calcium 8.9 (8.4-10.5) mg/dL Phosphorus 3.6 (2.5-4.5) mg/dL Magnesium 2.1 (1.7-2.2) mg/dL Total Bilirubin 0.7 (0.2-1.3) mg/dL AST 27 (14-36) U/L ALT 36 (7-56) U/L Alkaline Phosphatase 68 (38-126) U/L Total Protein 6.4 (5.8-8.3) g/dL Albumin 3.7 (3.0-4.8) g/dL Globulin 2.7 gm/dL Albumin/Globulin Ratio 1.4 (1.1-1.8) Influenza Typ A,B (EIA) (NEGATIVE) 08/01/17 07/31/17 07/31/17 Range/Units 05:25 22:53 18:48 WBC (4.5-11.0) 10^3/ul RBC (3.5-6.1) 10^6/uL Hgb (12.0-16.0) g/dL Hct (36.0-48.0) % MCV (80.0-105.0) fl MCH (25.0-35.0) pg MCHC (31.0-37.0) g/dl RDW (11.5-14.5) % Plt Count (120.0-450.0) 10^3/uL MPV (7.0-11.0) fl Gran % (50.0-68.0) % Lymph % (Auto) (22.0-35.0) % [place] % (Auto) (1.0-6.0) % Eos % (Auto) (1.5-5.0) % Baso % (Auto) (0.0-3.0) % Gran # (1.4-6.5) Lymph # (Auto) (1.2-3.4) [place] # (Auto) (0.1-0.6) Eos # (Auto) (0.0-0.7) Baso # (Auto) (0.0-2.0) K/mm3 Neutrophils % (Manual) (50.0-70.0) % Lymphocytes % (Manual) (22.0-35.0) % Monocytes % (Manual) (1.0-6.0) % Platelet Evaluation (NORMAL) Anisocytosis (manual) pCO2 (35-45) mm/Hg pO2 (80-100) mm/Hg HCO3 (21-28) mmol/L ABG pH (7.35-7.45) ABG Total CO2 (22-28) mmol.L ABG O2 Saturation (95-98) % ABG O2 Content (15-23) ML/dl ABG Base Excess (-2.0-3.0) mmol/L ABG Hemoglobin (11.7-17.4) g/dL ABG Carboxyhemoglobin (0.5-1.5) % POC ABG HHb (Measured) (0-5) % ABG Methemoglobin (0.0-3.0) % ABG O2 Capacity (16-24) mL/dl Hgb O2 Saturation (95.0-98.0) % FiO2 % Sodium (132-148) mmol/L Potassium (3.6-5.0) mmol/L Chloride (98-107) mmol/L Carbon Dioxide (21-33) mmol/L Anion Gap (10-20) BUN (7-21) mg/dL Creatinine (0.7-1.2) mg/dl Est GFR ( Amer) Est GFR (Non-Af Amer) POC Glucose (mg/dL) 141 H 165 H (65-110) mg/dL Random Glucose (70-110) mg/dL Calcium (8.4-10.5) mg/dL Phosphorus (2.5-4.5) mg/dL Magnesium (1.7-2.2) mg/dL Total Bilirubin (0.2-1.3) mg/dL AST (14-36) U/L ALT (7-56) U/L Alkaline Phosphatase (38-126) U/L Total Protein (5.8-8.3) g/dL Albumin (3.0-4.8) g/dL Globulin gm/dL Albumin/Globulin Ratio (1.1-1.8) Influenza Typ A,B (EIA) Negative for flu a/b (NEGATIVE) 07/31/17 Range/Units 18:46 WBC (4.5-11.0) 10^3/ul RBC (3.5-6.1) 10^6/uL Hgb (12.0-16.0) g/dL Hct (36.0-48.0) % MCV (80.0-105.0) fl MCH (25.0-35.0) pg MCHC (31.0-37.0) g/dl RDW (11.5-14.5) % Plt Count (120.0-450.0) 10^3/uL MPV (7.0-11.0) fl Gran % (50.0-68.0) % Lymph % (Auto) (22.0-35.0) % [place] % (Auto) (1.0-6.0) % Eos % (Auto) (1.5-5.0) % Baso % (Auto) (0.0-3.0) % Gran # (1.4-6.5) Lymph # (Auto) (1.2-3.4) [place] # (Auto) (0.1-0.6) Eos # (Auto) (0.0-0.7) Baso # (Auto) (0.0-2.0) K/mm3 Neutrophils % (Manual) (50.0-70.0) % Lymphocytes % (Manual) (22.0-35.0) % Monocytes % (Manual) (1.0-6.0) % Platelet Evaluation (NORMAL) Anisocytosis (manual) pCO2 (35-45) mm/Hg pO2 (80-100) mm/Hg HCO3 (21-28) mmol/L ABG pH (7.35-7.45) ABG Total CO2 (22-28) mmol.L ABG O2 Saturation (95-98) % ABG O2 Content (15-23) ML/dl ABG Base Excess (-2.0-3.0) mmol/L ABG Hemoglobin (11.7-17.4) g/dL ABG Carboxyhemoglobin (0.5-1.5) % POC ABG HHb (Measured) (0-5) % ABG Methemoglobin (0.0-3.0) % ABG O2 Capacity (16-24) mL/dl Hgb O2 Saturation (95.0-98.0) % FiO2 % Sodium (132-148) mmol/L Potassium (3.6-5.0) mmol/L Chloride (98-107) mmol/L Carbon Dioxide (21-33) mmol/L Anion Gap (10-20) BUN (7-21) mg/dL Creatinine (0.7-1.2) mg/dl Est GFR ( Amer) Est GFR (Non-Af Amer) POC Glucose (mg/dL) 171 H (65-110) mg/dL Random Glucose (70-110) mg/dL Calcium (8.4-10.5) mg/dL Phosphorus (2.5-4.5) mg/dL Magnesium (1.7-2.2) mg/dL Total Bilirubin (0.2-1.3) mg/dL AST (14-36) U/L ALT (7-56) U/L Alkaline Phosphatase (38-126) U/L Total Protein (5.8-8.3) g/dL Albumin (3.0-4.8) g/dL Globulin gm/dL Albumin/Globulin Ratio (1.1-1.8) Influenza Typ A,B (EIA) (NEGATIVE) Laboratory Results - last 24 hr 07/31/17 07/31/17 07/31/17 18:46 18:48 22:53 WBC RBC Hgb Hct MCV MCH MCHC RDW Plt Count MPV Gran % Lymph % (Auto) [place] % (Auto) Eos % (Auto) Baso % (Auto) Gran # Lymph # (Auto) [place] # (Auto) Eos # (Auto) Baso # (Auto) Neutrophils % (Manual) Lymphocytes % (Manual) Monocytes % (Manual) Platelet Evaluation Anisocytosis (manual) pCO2 pO2 HCO3 ABG pH ABG Total CO2 ABG O2 Saturation ABG O2 Content ABG Base Excess ABG Hemoglobin ABG Carboxyhemoglobin POC ABG HHb (Measured) ABG Methemoglobin ABG O2 Capacity Hgb O2 Saturation FiO2 Sodium Potassium Chloride Carbon Dioxide Anion Gap BUN Creatinine Est GFR ( Amer) Est GFR (Non-Af Amer) POC Glucose (mg/dL) 171 H 165 H Random Glucose Calcium Phosphorus Magnesium Total Bilirubin AST ALT Alkaline Phosphatase Total Protein Albumin Globulin Albumin/Globulin Ratio Influenza Typ A,B (EIA) Negative for flu a/b 08/01/17 08/01/17 08/01/17 05:25 05:45 05:45 WBC 17.0 H RBC 4.24 Hgb 12.2 D Hct 37.6 MCV 88.7 MCH 28.8 MCHC 32.4 RDW 13.7 Plt Count 250 MPV 10.9 Gran % 92.9 H Lymph % (Auto) 4.9 L [place] % (Auto) 2.2 Eos % (Auto) 0.0 L Baso % (Auto) 0.0 Gran # 15.77 H Lymph # (Auto) 0.8 L [place] # (Auto) 0.4 Eos # (Auto) 0.0 Baso # (Auto) 0.00 Neutrophils % (Manual) 93 H Lymphocytes % (Manual) 5 L Monocytes % (Manual) 2 Platelet Evaluation Normal Anisocytosis (manual) Slight pCO2 pO2 HCO3 ABG pH ABG Total CO2 ABG O2 Saturation ABG O2 Content ABG Base Excess ABG Hemoglobin ABG Carboxyhemoglobin POC ABG HHb (Measured) ABG Methemoglobin ABG O2 Capacity Hgb O2 Saturation FiO2 Sodium 141 Potassium 3.8 Chloride 106 Carbon Dioxide 25 Anion Gap 14 BUN 24 H Creatinine 0.8 Est GFR ( Amer) > 60 Est GFR (Non-Af Amer) > 60 POC Glucose (mg/dL) 141 H Random Glucose 164 H Calcium 8.9 Phosphorus 3.6 Magnesium 2.1 Total Bilirubin 0.7 AST 27 ALT 36 Alkaline Phosphatase 68 Total Protein 6.4 Albumin 3.7 Globulin 2.7 Albumin/Globulin Ratio 1.4 Influenza Typ A,B (EIA) 08/01/17 05:45 WBC RBC Hgb Hct MCV MCH MCHC RDW Plt Count MPV Gran % Lymph % (Auto) [place] % (Auto) Eos % (Auto) Baso % (Auto) Gran # Lymph # (Auto) [place] # (Auto) Eos # (Auto) Baso # (Auto) Neutrophils % (Manual) Lymphocytes % (Manual) Monocytes % (Manual) Platelet Evaluation Anisocytosis (manual) pCO2 38 pO2 99.0 HCO3 24.6 ABG pH 7.42 ABG Total CO2 25.8 ABG O2 Saturation 99.6 H ABG O2 Content 16.7 ABG Base Excess 0.3 ABG Hemoglobin 12.3 ABG Carboxyhemoglobin 2.2 H POC ABG HHb (Measured) 0.4 ABG Methemoglobin 1.5 ABG O2 Capacity 16.8 Hgb O2 Saturation 95.8 FiO2 40.0 Sodium Potassium Chloride Carbon Dioxide Anion Gap BUN Creatinine Est GFR ( Amer) Est GFR (Non-Af Amer) POC Glucose (mg/dL) Random Glucose Calcium Phosphorus Magnesium Total Bilirubin AST ALT Alkaline Phosphatase Total Protein Albumin Globulin Albumin/Globulin Ratio Influenza Typ A,B (EIA) Critical Care Progress Note - Nutrition Nutrition: Nutrition Category Date Time Status Consistent Carbohydrate [DIET] Diets 08/01/17 Breakfast Ordered Assessment/Plan - Assessment and Plan (Free Text) Plan: Pt seen and examined on rounds with resident, agree with note with following additions/exceptions: Pt is 52yo female wPMHx Asthma, active smoker, a/w respiratory failure. This morning sedation shut off, placed on CPAP trial for 60 minutes, tolerated it well, awake, alert, following commands, RSBI 40s, subsequently extubated to 3LNC , comfortable sat 94%. Respiratory failure, Hypoxic, Hypercapnic s/p extubation Asthma exacerbation SOB Pulm edema, resoved recommend: - supp o2 as needed - Solumedrol 40mg IV q12hr - Cover for CAP, Rocephin, Azithro - Duonebs q6hr PRN - gCXR with improved pulm edema, DC LAsix - Check Procal, Sputum culture, UCx, BCx - monitor HH - FS control - I/Os - BP control - ECHO - GI ppx - DVT ppx - stable, monitor in MICU
[2017-08-01 07:15] LABS: ALB/GLOB RATIO 1.4 (1.1-1.8); ALBUMIN 3.7 g/dL (3.0-4.8); ALT/SGPT 36 U/L (7-56); AST/SGOT 27 U/L (14-36); BLOOD UREA NITROGEN 24 mg/dL (7-21); CALCIUM 8.9 mg/dL (8.4-10.5); GFR AFRICAN-AMERICAN > 60; GFR NON-AFRICAN AMERICAN > 60
--- NOTE | 2017-08-01 08:58 | RAD ---
HISTORY: follow up COMPARISON: Portable chest 07/31/2017. FINDINGS: LUNGS: Endotracheal tube is unchanged in position. Portal venous congestive pattern appears diminished with reduction and right basilar infiltrate with trace residual questioned medially. No left-sided infiltrate. No pleural effusion bilaterally. No pneumothorax either. PLEURA: As above. CARDIOVASCULAR: Cardiac size appears stable. Diminishing hypervascular hilar markings. OSSEOUS STRUCTURES: No significant abnormalities. VISUALIZED UPPER ABDOMEN: Normal. OTHER FINDINGS: None. IMPRESSION: Diminishing CHF pattern as well as right basilar infiltrate.
[2017-08-01 09:09] LABS: ANISOCYTOSIS SLIGHT; LYMPHOCYTE 5 % (22.0-35.0); MONOCYTE 2 % (1.0-6.0); NEUTROPHIL 93 % (50.0-70.0); PLATELET ESTIMATE NORMAL (NORMAL)
[2017-08-01] MEDS: cefTRIAXone 1 gm 1 GM/100 ML BAG IVPB SCH (10:44)
[2017-08-01] MEDS: Azithromycin 500MG/NS 250ml 500 MG/250 ML BAG IVPB SCH (10:49)
[2017-08-01] MEDS: Enoxaparin 40 mg Syringe SC SCH (10:52)
--- NOTE | 2017-08-01 13:16 | CP.PCM.PN ---
<Kasandra Nichols - Last Filed: 08/01/17 13:18> Subjective - Date & Time of Evaluation Date of Evaluation: 08/01/17 Time of Evaluation: 13:16 - Subjective Subjective: Progress note for Dr. Prieto Patient seen and examined at bedside. Patient was extubated, tolerated well. Today, patient is verbal and denies alcohol and illicit drug abuse history. Patient states she doesn't feel that she has difficulty breathing. Patient denies fever, chills, nausea, vomiting, changes in vision, urinary complaints. Objective - Vital Signs/Intake and Output Vital Signs (last 24 hours): Temp Pulse Resp BP Pulse Ox 100.3 F H 117 H 18 110/50 L 94 L 08/01/17 07:00 08/01/17 10:30 08/01/17 10:30 08/01/17 10:00 08/01/17 10:30 Intake and Output: 08/01/17 08/01/17 06:59 18:59 Intake Total 648 26 Output Total 1100 Balance -452 26 - Medications Medications: Current Medications Albuterol/Ipratropium (Duoneb 3 Mg/0.5 Mg (3 Ml) Ud) 3 ml IH Q2H PRN PRN Reason: Shortness of Breath Albuterol/Ipratropium (Duoneb 3 Mg/0.5 Mg (3 Ml) Ud) 3 ml IH [id number] ON LICENSE OF [facility] Last Admin: 08/01/17 07:17 Dose: 3 ml Enoxaparin Sodium (Lovenox) 40 mg SC DAILY JUAN ALBERTO PRN Reason: Protocol Last Admin: 08/01/17 10:52 Dose: 40 mg Ceftriaxone Sodium (Rocephin 1 Gram Ivpb) 1 gm in 100 mls @ 100 mls/hr IVPB DAILY JUAN ALBERTO PRN Reason: Protocol Last Admin: 08/01/17 10:44 Dose: 100 mls/hr Azithromycin (Zithromax 500mg In Ns) 500 mg in 250 mls @ 167 mls/hr IVPB DAILY JUAN ALBERTO PRN Reason: Protocol Last Admin: 08/01/17 10:49 Dose: 167 mls/hr Acetaminophen (Ofirmev) 1,000 mg in 100 mls @ 400 mls/hr IVPB Q6H PRN PRN Reason: Temp>100 Stop: 08/03/17 07:04 Last Admin: 08/01/17 07:11 Dose: 400 mls/hr Insulin Human Regular (Humulin R Low) 0 units SC Q6 ON LICENSE OF [facility] PRN Reason: Protocol Last Admin: 08/01/17 05:34 Dose: Not Given Methylprednisolone (Solu-Medrol) 40 mg IVP Q12 ON LICENSE OF [facility] Last Admin: 08/01/17 10:50 Dose: 40 mg Pantoprazole Sodium (Protonix Inj) 40 mg IVP DAILY ON LICENSE OF [facility] Last Admin: 08/01/17 10:50 Dose: 40 mg - Labs Labs: 08/01/17 05:45 08/01/17 05:45 - Constitutional Appears: Non-toxic, No Acute Distress - Head Exam Head Exam: ATRAUMATIC, NORMAL INSPECTION, NORMOCEPHALIC - Eye Exam Eye Exam: EOMI, Normal appearance Pupil Exam: NORMAL ACCOMODATION, PERRL - ENT Exam ENT Exam: Mucous Membranes Dry - Neck Exam Neck Exam: Full ROM. absent: Thyromegaly - Respiratory Exam Respiratory Exam: Clear to Ausculation Bilateral, NORMAL BREATHING PATTERN. absent: Accessory Muscle Use, Decreased Breath Sounds - Cardiovascular Exam Cardiovascular Exam: Bradycardia, REGULAR RHYTHM, +S1, +S2. absent: Tachycardia - GI/Abdominal Exam GI & Abdominal Exam: Soft, Normal Bowel Sounds. absent: Tenderness - Extremities Exam Extremities Exam: Full ROM. absent: Pedal Edema - Neurological Exam Neurological Exam: Alert, Awake, CN II-XII Intact, Oriented x3 - Psychiatric Exam Psychiatric exam: Normal Affect, Normal Mood - Skin Skin Exam: Dry, Intact, Normal Color, Warm Assessment and Plan - Assessment and Plan (Free Text) Assessment: 52F with PMHx of Asthma, smoker (1 pack per day), presented to the ER by EMS with respiratory distress and was intubated in the emergency room. Neuro: Sedation: propofol 5mcg/kg/min, held for low blood pressure versed Respiratory distress abg 7.22, 54 pCO2, HCO3 22.1 intubated PRVC TV 450 PEEP 5 RR 18 FiO2 100% blood culture, urine culture ABG procalcitonin duonebs 3cc IH Q2H PRN 3cc H Q6H ID consult: Dr. Neil Marquez 1gm QD azithro 500mg IVPB daily Pain Fentanyl 1000mcg IV 20mcg/hr DM Humalin SS SC Q6H methylprednisolone 40mg IVP Q8H Prophylaxis lovenox 40mg SC Daily Protonix 40mg IVP daily <Rudy Prieto - Last Filed: 08/02/17 15:12> Objective - Vital Signs/Intake and Output Vital Signs (last 24 hours): Temp Pulse Resp BP Pulse Ox 99.1 F 148 H 16 108/61 94 L 08/02/17 04:00 08/02/17 14:00 08/01/17 20:10 08/02/17 10:15 08/01/17 20:20 Intake and Output: 08/02/17 08/02/17 06:59 18:59 Output Total 550 Balance -550 - Medications Medications: Current Medications Acetaminophen (Tylenol 325mg Tab) 650 mg PO Q6H PRN PRN Reason: Fever >100.4 F Albuterol/Ipratropium (Duoneb 3 Mg/0.5 Mg (3 Ml) Ud) 3 ml IH Q2H PRN PRN Reason: Shortness of Breath Albuterol/Ipratropium (Duoneb 3 Mg/0.5 Mg (3 Ml) Ud) 3 ml IH [id number] ON LICENSE OF [facility] Last Admin: 08/02/17 13:22 Dose: 3 ml Amoxicillin/Clavulanate Potassium (Augmentin 500 Mg-125 Mg Tab) 1 tab PO Q8 JUAN ALBERTO PRN Reason: Protocol Last Admin: 08/02/17 14:21 Dose: 1 tab Azithromycin (Zithromax) 500 mg PO DAILY JUAN ALBERTO PRN Reason: Protocol Enoxaparin Sodium (Lovenox) 40 mg SC DAILY JUAN ALBERTO PRN Reason: Protocol Last Admin: 08/02/17 09:06 Dose: 40 mg Furosemide (Lasix) 20 mg IVP Q12 ON LICENSE OF [facility] Insulin Human Regular (Humulin R Low) 0 units SC ACHS JUAN ALBERTO PRN Reason: Protocol Last Admin: 08/02/17 12:20 Dose: 1 units Methylprednisolone (Medrol) 40 mg PO DAILY ON LICENSE OF [facility] Stop: 08/04/17 10:01 Pantoprazole Sodium (Protonix Inj) 40 mg IVP DAILY ON LICENSE OF [facility] Last Admin: 08/02/17 09:07 Dose: 40 mg - Labs Labs: 08/02/17 05:50 08/02/17 05:50 Attending/Attestation - Attestation I have personally seen and examined this patient.: Yes I have fully participated in the care of the patient.: Yes I have reviewed all pertinent clinical information, including history, physical exam and plan: Yes Notes (Text): 08/02/17 15:09 Patient was seen and examined with medical consultant. Management plan was discussed in detail with patient. Education was provided 52 yrs old female with PMHx of COPD, presented to the ER by EMS with change of mental status, was found to be respiratory distress and was intubated in the emergency room. She was treated with Neb/IV steroid and antibiotics for Pneumonia .She is extubated today.We will continue Neb/Steroid and antibiotics.We will follow up cultures.We will also get 2D Echo.
--- NOTE | 2017-08-01 17:14 | CARD ---
APPROVED REPORT EXAM: Two-dimensional and M-mode echocardiogram with Doppler and color Doppler. INDICATION POSSIBLE CHF 2D DIMENSIONS Left Atrium (2D)6.1 (1.6-4.0cm)IVSd0.9 (0.7-1.1cm) LVDd5.1 (3.9-5.9cm)PWd1.3 (0.7-1.1cm) LVDs3.3 (2.5-4.0cm)FS (%) 36.6 % LVEF (%)66.0 (>50%) M-Mode DIMENSIONS Aortic Root2.40 (2.2-3.7cm)Aortic Cusp Exc.1.50 (1.5-2.0cm) Aortic Valve AoV Peak Zafcwrmy325.0cm/Evelyn Peak GR.9mmHg Mitral Valve MV E Peak Gr.67mmHgMV E Mean Gr.39mmHgMV PCH708de E/A ratio0.0MVA (PHT)1.30kj8NEI (Planimetry)1.14cm2 TDI E/Lateral E'0.0E/Medial E'0.0 Pulmonary Valve PV Peak Bunzstay64.4cm/sPV Peak Grad.1mmHg Tricuspid Valve TR Peak Yongrpny124ay/sRAP [id number] Peak Gr.59mmHg [id number] LEFT VENTRICLE The left ventricle is normal size. There is normal left ventricular wall thickness. The left ventricular function is normal. The left ventricular ejection fraction is within the normal range. There is normal LV segmental wall motion. Transmitral Doppler flow pattern is Grade I-abnormal relaxation pattern. RIGHT VENTRICLE The right ventricle is normal size. There is normal right ventricular wall thickness. The right ventricular systolic function is normal. ATRIA The left atrium is severely dilated. The right atrium size is normal. AORTIC VALVE The aortic valve is normal in structure. There is trace aortic regurgitation. There is no aortic valvular stenosis. 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 There is severe mitral valve stenosis. TRICUSPID VALVE There is severe tricuspid regurgitation. There is severe pulmonary hypertension. GREAT VESSELS The aortic root is normal in size. PERICARDIAL EFFUSION There is no pericardial effusion. <Conclusion> The left ventricle is normal size. There is normal left ventricular wall thickness. The left ventricular function is normal. The left ventricular ejection fraction is within the normal range. There is normal LV segmental wall motion. 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 There is severe pulmonary hypertension.
--- NOTE | 2017-08-01 17:57 | CARD ---
APPROVED REPORT EKG Measurement Heart [id number] <Conclusion> Sinus tachycardia Biatrial enlargement Left bundle branch block Abnormal ECG
--- NOTE | 2017-08-01 19:31 | CP.PCM.CON ---
History of Present Illness - History of Present Illness History of Present Illness: Infectious Disease Consultation: August 01, 2017 52 [address] in [address] with friend developed respiratory distress. The patient was taken in by ENT who had to give Ketamine as the patient was severely agitated. Pulse oximeter showed oxygen saturation down to 70%. She required intubation in the ER. Patient was extubated today (08/01/2017). Only reported medical history is Asthma. PMHx: Asthma PSHx: none given Allergies: NKDA Social Hx: Tobacco use of 1ppd NO EtOH or illicit drugs admitted to. Active Medications Acetaminophen (Tylenol 325mg Tab) 650 mg PO Q6H PRN PRN Reason: Fever >100.4 F Albuterol/Ipratropium (Duoneb 3 Mg/0.5 Mg (3 Ml) Ud) 3 ml IH Q2H PRN PRN Reason: Shortness of Breath Albuterol/Ipratropium (Duoneb 3 Mg/0.5 Mg (3 Ml) Ud) 3 ml IH [id number] [facility] Last Admin: 08/01/17 13:49 Dose: 3 ml Enoxaparin Sodium (Lovenox) 40 mg SC DAILY JUAN ALBERTO PRN Reason: Protocol Last Admin: 08/01/17 10:52 Dose: 40 mg Ceftriaxone Sodium (Rocephin 1 Gram Ivpb) 1 gm in 100 mls @ 100 mls/hr IVPB DAILY JUAN ALBERTO PRN Reason: Protocol Last Admin: 08/01/17 10:44 Dose: 100 mls/hr Azithromycin (Zithromax 500mg In Ns) 500 mg in 250 mls @ 167 mls/hr IVPB DAILY JUAN ALBERTO PRN Reason: Protocol Last Admin: 08/01/17 10:49 Dose: 167 mls/hr Insulin Human Regular (Humulin R Low) 0 units SC ACHS JUAN ALBERTO PRN Reason: Protocol Methylprednisolone (Solu-Medrol) 40 mg IVP Q12 [facility] Last Admin: 08/01/17 10:50 Dose: 40 mg Pantoprazole Sodium (Protonix Inj) 40 mg IVP DAILY [facility] Last Admin: 08/01/17 10:50 Dose: 40 mg Family Hx: none given ROS: AMS, respiratory distress, cough. No chest pain, abdominal pain, melena, hematuria, hematemesis, hematochezia, depression, anxiety, diarrhea, headaches, dizziness, vision loss, hearing loss. 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.) - SURGICAL HISTORY Hx Surgeries: No Meds Allergies/Adverse Reactions: Allergies Allergy/AdvReac Type Severity Reaction Status Date / Time Unobtainable Allergy Verified 07/31/17 21:58 - Medications Medications: Current Medications Acetaminophen (Tylenol 325mg Tab) 650 mg PO Q6H PRN PRN Reason: Fever >100.4 F Albuterol/Ipratropium (Duoneb 3 Mg/0.5 Mg (3 Ml) Ud) 3 ml IH Q2H PRN PRN Reason: Shortness of Breath Albuterol/Ipratropium (Duoneb 3 Mg/0.5 Mg (3 Ml) Ud) 3 ml IH [id number] [facility] Last Admin: 08/01/17 13:49 Dose: 3 ml Enoxaparin Sodium (Lovenox) 40 mg SC DAILY JUAN ALBERTO PRN Reason: Protocol Last Admin: 08/01/17 10:52 Dose: 40 mg Ceftriaxone Sodium (Rocephin 1 Gram Ivpb) 1 gm in 100 mls @ 100 mls/hr IVPB DAILY [facility] PRN Reason: Protocol Last Admin: 08/01/17 10:44 Dose: 100 mls/hr Azithromycin (Zithromax 500mg In Ns) 500 mg in 250 mls @ 167 mls/hr IVPB DAILY JUAN ALBERTO PRN Reason: Protocol Last Admin: 08/01/17 10:49 Dose: 167 mls/hr Insulin Human Regular (Humulin R Low) 0 units SC ACHS JUAN ALBERTO PRN Reason: Protocol Methylprednisolone (Solu-Medrol) 40 mg IVP Q12 [facility] Last Admin: 08/01/17 10:50 Dose: 40 mg Pantoprazole Sodium (Protonix Inj) 40 mg IVP DAILY [facility] Last Admin: 08/01/17 10:50 Dose: 40 mg Physical Exam - Constitutional Appears: Non-toxic, No Acute Distress, Chronically Ill - Head Exam Head Exam: ATRAUMATIC, NORMOCEPHALIC - Eye Exam Eye Exam: EOMI, PERRL Pupil Exam: NORMAL ACCOMODATION, PERRL - ENT Exam ENT Exam: Mucous Membranes Moist, Normal External Ear Exam, TM's Normal Bilaterally - Neck Exam Neck exam: Positive for: Full Rom, Normal Inspection - Respiratory Exam Respiratory Exam: Clear to Auscultation Bilateral, NORMAL BREATHING PATTERN. absent: Rales, Rhonchi, Wheezes - Cardiovascular Exam Cardiovascular Exam: REGULAR RHYTHM, RRR, +S1, +S2 - GI/Abdominal Exam GI & Abdominal Exam: Normal Bowel Sounds, Soft. absent: Distended, Tenderness - Extremities Exam Extremities exam: Positive for: full ROM, normal inspection - Neurological Exam Neurological exam: Alert, CN II-XII Intact, Oriented x3 - Psychiatric Exam Psychiatric exam: Normal Affect, Normal Mood - Skin Skin Exam: Dry, Intact, Normal Color, Warm Results - Vital Signs Recent Vital Signs: Last Vital Signs Temp 100.3 F H 08/01/17 07:00 Pulse 112 H 08/01/17 15:10 Resp 17 08/01/17 15:00 BP 106/61 08/01/17 12:00 Pulse Ox 96 08/01/17 15:10 - Labs Result Diagrams: 08/01/17 05:45 08/01/17 05:45 Labs: Laboratory Results - last 24 hr 07/31/17 07/31/17 08/01/17 18:48 22:53 05:25 WBC RBC Hgb Hct MCV MCH MCHC RDW Plt Count MPV Gran % Lymph % (Auto) Woods % (Auto) Eos % (Auto) Baso % (Auto) Gran # Lymph # (Auto) Woods # (Auto) Eos # (Auto) Baso # (Auto) Neutrophils % (Manual) Lymphocytes % (Manual) Monocytes % (Manual) Platelet Evaluation Anisocytosis (manual) pCO2 pO2 HCO3 ABG pH ABG Total CO2 ABG O2 Saturation ABG O2 Content ABG Base Excess ABG Hemoglobin ABG Carboxyhemoglobin POC ABG HHb (Measured) ABG Methemoglobin ABG O2 Capacity Hgb O2 Saturation FiO2 Sodium Potassium Chloride Carbon Dioxide Anion Gap BUN Creatinine Est GFR ( Amer) Est GFR (Non-Af Amer) POC Glucose (mg/dL) 165 H 141 H Random Glucose Calcium Phosphorus Magnesium Total Bilirubin AST ALT Alkaline Phosphatase Total Protein Albumin Globulin Albumin/Globulin Ratio Influenza Typ A,B (EIA) Negative for flu a/b 08/01/17 08/01/17 08/01/17 05:45 05:45 05:45 WBC 17.0 H RBC 4.24 Hgb 12.2 D Hct 37.6 MCV 88.7 MCH 28.8 MCHC 32.4 RDW 13.7 Plt Count 250 MPV 10.9 Gran % 92.9 H Lymph % (Auto) 4.9 L Woods % (Auto) 2.2 Eos % (Auto) 0.0 L Baso % (Auto) 0.0 Gran # 15.77 H Lymph # (Auto) 0.8 L Woods # (Auto) 0.4 Eos # (Auto) 0.0 Baso # (Auto) 0.00 Neutrophils % (Manual) 93 H Lymphocytes % (Manual) 5 L Monocytes % (Manual) 2 Platelet Evaluation Normal Anisocytosis (manual) Slight pCO2 38 pO2 99.0 HCO3 24.6 ABG pH 7.42 ABG Total CO2 25.8 ABG O2 Saturation 99.6 H ABG O2 Content 16.7 ABG Base Excess 0.3 ABG Hemoglobin 12.3 ABG Carboxyhemoglobin 2.2 H POC ABG HHb (Measured) 0.4 ABG Methemoglobin 1.5 ABG O2 Capacity 16.8 Hgb O2 Saturation 95.8 FiO2 40.0 Sodium 141 Potassium 3.8 Chloride 106 Carbon Dioxide 25 Anion Gap 14 BUN 24 H Creatinine 0.8 Est GFR ( Amer) > 60 Est GFR (Non-Af Amer) > 60 POC Glucose (mg/dL) Random Glucose 164 H Calcium 8.9 Phosphorus 3.6 Magnesium 2.1 Total Bilirubin 0.7 AST 27 ALT 36 Alkaline Phosphatase 68 Total Protein 6.4 Albumin 3.7 Globulin 2.7 Albumin/Globulin Ratio 1.4 Influenza Typ A,B (EIA) 08/01/17 08/01/17 12:05 17:07 WBC RBC Hgb Hct MCV MCH MCHC RDW Plt Count MPV Gran % Lymph % (Auto) Woods % (Auto) Eos % (Auto) Baso % (Auto) Gran # Lymph # (Auto) Woods # (Auto) Eos # (Auto) Baso # (Auto) Neutrophils % (Manual) Lymphocytes % (Manual) Monocytes % (Manual) Platelet Evaluation Anisocytosis (manual) pCO2 pO2 HCO3 ABG pH ABG Total CO2 ABG O2 Saturation ABG O2 Content ABG Base Excess ABG Hemoglobin ABG Carboxyhemoglobin POC ABG HHb (Measured) ABG Methemoglobin ABG O2 Capacity Hgb O2 Saturation FiO2 Sodium Potassium Chloride Carbon Dioxide Anion Gap BUN Creatinine Est GFR ( Amer) Est GFR (Non-Af Amer) POC Glucose (mg/dL) 190 H 193 H Random Glucose Calcium Phosphorus Magnesium Total Bilirubin AST ALT Alkaline Phosphatase Total Protein Albumin Globulin Albumin/Globulin Ratio Influenza Typ A,B (EIA) Assessment & Plan - Assessment and Plan (Free Text) Assessment: 52 yo female with respiratory distress and AMS on presentation. Required intubation. The patient had leukocytosis up to 17. They were able to extubate today. Influenza negative. Right basilar infiltrate on Chest X-ray with signs of CHF. The patient likely has additional medical issues including potential substance abuse issues that she has not told us. On Rocephin and Azithromycin for potential pneumonia. Supportive care. Procalcitonin negative. Cultures pending. Thank you for allowing me to participate in the care of the patient, we will follow with you.
[2017-08-02] MEDS: Albuterol-Ipratrop 3 mg / 0.5 (3 ml) UD IH SCH ×4 (02:43→20:59)
[2017-08-02 06:43] LABS: GRAN # 19.72 (1.4-6.5); GRAN % 91.8 % (50.0-68.0); LYMPH # 0.9 (1.2-3.4); MEAN CORPUSCULAR HEMOGLOBIN 28.6 pg (25.0-35.0); MEAN CORPUSCULAR HGB CONC 31.8 g/dl (31.0-37.0); MEAN PLATELET VOLUME 10.7 fl (7.0-11.0); MONO # 0.9 (0.1-0.6); MONO % 4.2 % (1.0-6.0); RBC 4.19 10^6/uL (3.5-6.1); RED CELL DISTRIBUTION WIDTH 13.7 % (11.5-14.5); WHITE BLOOD COUNT 21.5 10^3/ul (4.5-11.0)
--- NOTE | 2017-08-02 07:09 | CP.PCM.PN ---
<Kasandra Nichols - Last Filed: 08/02/17 12:02> Subjective - Date & Time of Evaluation Date of Evaluation: 08/02/17 Time of Evaluation: 07:07 - Subjective Subjective: Progress note for Dr. Prieto Patient seen and examined at bedside. Patient is comfortable at bedside. Patient denies fever, chills, nausea, vomiting, changes in vision, urinary complaints. Objective - Vital Signs/Intake and Output Vital Signs (last 24 hours): Temp Pulse Resp BP Pulse Ox 99.1 F 107 H 16 106/61 94 L 08/02/17 04:00 08/01/17 20:20 08/01/17 20:10 08/01/17 12:00 08/01/17 20:20 - Medications Medications: Current Medications Acetaminophen (Tylenol 325mg Tab) 650 mg PO Q6H PRN PRN Reason: Fever >100.4 F Albuterol/Ipratropium (Duoneb 3 Mg/0.5 Mg (3 Ml) Ud) 3 ml IH Q2H PRN PRN Reason: Shortness of Breath Albuterol/Ipratropium (Duoneb 3 Mg/0.5 Mg (3 Ml) Ud) 3 ml IH [id number] [facility] Last Admin: 08/02/17 02:43 Dose: 3 ml Enoxaparin Sodium (Lovenox) 40 mg SC DAILY JUAN ALBERTO PRN Reason: Protocol Last Admin: 08/01/17 10:52 Dose: 40 mg Ceftriaxone Sodium (Rocephin 1 Gram Ivpb) 1 gm in 100 mls @ 100 mls/hr IVPB DAILY JUAN ALBERTO PRN Reason: Protocol Last Admin: 08/01/17 10:44 Dose: 100 mls/hr Azithromycin (Zithromax 500mg In Ns) 500 mg in 250 mls @ 167 mls/hr IVPB DAILY JUAN ALBERTO PRN Reason: Protocol Last Admin: 08/01/17 10:49 Dose: 167 mls/hr Insulin Human Regular (Humulin R Low) 0 units SC ACHS [facility] PRN Reason: Protocol Last Admin: 08/01/17 22:10 Dose: Not Given Methylprednisolone (Solu-Medrol) 40 mg IVP Q12 [facility] Last Admin: 08/01/17 22:09 Dose: 40 mg Pantoprazole Sodium (Protonix Inj) 40 mg IVP DAILY [facility] Last Admin: 08/01/17 10:50 Dose: 40 mg - Labs Labs: 08/02/17 05:50 08/01/17 05:45 - Constitutional Appears: Non-toxic, No Acute Distress - Head Exam Head Exam: ATRAUMATIC, NORMAL INSPECTION, NORMOCEPHALIC - Eye Exam Eye Exam: EOMI, Normal appearance Pupil Exam: NORMAL ACCOMODATION, PERRL - ENT Exam ENT Exam: Mucous Membranes Moist, Normal Exam - Neck Exam Neck Exam: Full ROM - Respiratory Exam Respiratory Exam: Clear to Ausculation Bilateral, NORMAL BREATHING PATTERN. absent: Accessory Muscle Use - Cardiovascular Exam Cardiovascular Exam: REGULAR RHYTHM, +S1, +S2 - GI/Abdominal Exam GI & Abdominal Exam: Soft, Normal Bowel Sounds. absent: Tenderness - Extremities Exam Extremities Exam: Full ROM, Normal Capillary Refill, Normal Inspection. absent : Pedal Edema - Back Exam Back Exam: Full ROM, NORMAL INSPECTION - Neurological Exam Neurological Exam: Awake, CN II-XII Intact, Oriented x3 - Psychiatric Exam Psychiatric exam: Normal Affect, Normal Mood - Skin Skin Exam: Dry, Intact, Normal Color, Warm Assessment and Plan - Assessment and Plan (Free Text) Assessment: 52F with PMHx of Asthma, smoker (1 pack per day), presented to the ER by EMS with respiratory distress and was intubated in the emergency room. Respiratory distress abg 7.22, 54 pCO2, HCO3 22.1 intubated PRVC TV 450 PEEP 5 RR 18 FiO2 100% blood culture, urine culture ABG procalcitonin solumedrol 40mg PO x 2 more days, to discontinue 08/04 echo: normal LV wal thickness, LVF normal, EF normal, severe tricuspid regurg, severe pulmonary htn, mitral insufficiency and severe mitral stenosis Cardio consult: Dr. Cancino ID consult: Dr. Trejo Rocephin 1gm QD azithro 500mg , discontinued patient placed on augmentin q 8h and azithro po DM Humalin SS SC Q6H Prophylaxis lovenox 40mg SC Daily Protonix 40mg IVP daily <Rudy Prieto - Last Filed: 08/02/17 15:16> Objective - Vital Signs/Intake and Output Vital Signs (last 24 hours): Temp Pulse Resp BP Pulse Ox 99.1 F 148 H 16 108/61 94 L 08/02/17 04:00 08/02/17 14:00 08/01/17 20:10 08/02/17 10:15 08/01/17 20:20 Intake and Output: 08/02/17 08/02/17 06:59 18:59 Output Total 550 Balance -550 - Medications Medications: Current Medications Acetaminophen (Tylenol 325mg Tab) 650 mg PO Q6H PRN PRN Reason: Fever >100.4 F Albuterol/Ipratropium (Duoneb 3 Mg/0.5 Mg (3 Ml) Ud) 3 ml IH Q2H PRN PRN Reason: Shortness of Breath Albuterol/Ipratropium (Duoneb 3 Mg/0.5 Mg (3 Ml) Ud) 3 ml IH [id number] [facility] Last Admin: 08/02/17 13:22 Dose: 3 ml Amoxicillin/Clavulanate Potassium (Augmentin 500 Mg-125 Mg Tab) 1 tab PO Q8 [facility]ERT[facility] PRN Reason: Protocol Last Admin: 08/02/17 14:21 Dose: 1 tab Azithromycin (Zithromax) 500 mg PO DAILY [facility] ALBERTO PRN Reason: Protocol Enoxaparin Sodium (Lovenox) 40 mg SC DAILY [facility] ALBERTO PRN Reason: Protocol Last Admin: 08/02/17 09:06 Dose: 40 mg Furosemide (Lasix) 20 mg IVP Q12 [facility] Insulin Human Regular (Humulin R Low) 0 units SC ACHS JUAN ALBERTO PRN Reason: Protocol Last Admin: 08/02/17 12:20 Dose: 1 units Methylprednisolone (Medrol) 40 mg PO DAILY [facility] Stop: 08/04/17 10:01 Pantoprazole Sodium (Protonix Inj) 40 mg IVP DAILY [facility] Last Admin: 08/02/17 09:07 Dose: 40 mg - Labs Labs: 08/02/17 05:50 08/02/17 05:50 Attending/Attestation - Attestation I have personally seen and examined this patient.: Yes I have fully participated in the care of the patient.: Yes I have reviewed all pertinent clinical information, including history, physical exam and plan: Yes Notes (Text): 08/02/17 15:14 Patient was seen and examined with medical technologist. Agreed with assessment and plan. Patient is afebrile, has leukocytosis due to IV steroid.Procalcitonin level is normal.We will switch to oral Prednisone. .We will also change patient to oral antibiotics.Patient has basal crackle on lung examination.We will start patient on IV lasix.Echo showed severe mitral stenosis ,Pulmonary HTN and TR.We will get cardiology evaluation. Management plan was discussed in detail with patient. Education was provided
[2017-08-02 07:12] LABS: ALB/GLOB RATIO 1.4 (1.1-1.8); ALBUMIN 3.8 g/dL (3.0-4.8); ALT/SGPT 33 U/L (7-56); AST/SGOT 19 U/L (14-36); BLOOD UREA NITROGEN 20 mg/dL (7-21); CALCIUM 9.3 mg/dL (8.4-10.5); GFR AFRICAN-AMERICAN > 60; GFR NON-AFRICAN AMERICAN > 60
[2017-08-02] MEDS: Insulin Reg-LOW-Coverage SC SCH ×4 (07:40→22:00)
[2017-08-02] MEDS: Enoxaparin 40 mg Syringe SC SCH (09:06)
[2017-08-02] MEDS: cefTRIAXone 1 gm 1 GM/100 ML BAG IVPB SCH (09:06)
[2017-08-02] MEDS: MethylPREDNISolone 40 mg Vial IVP SCH (09:06)
[2017-08-02] MEDS: Azithromycin 500MG/NS 250ml 500 MG/250 ML BAG IVPB SCH (10:30)
[2017-08-02] MEDS: Amoxicillin-Clav 500-125 mg Tab PO SCH ×2 (14:21→21:48)
--- NOTE | 2017-08-02 14:35 | CON ---
DATE: 08/02/2017 CARDIOLOGY CONSULTATION HISTORY: The patient is a 52-year-old woman, who lives in [place] and has no past medical history, is on no medication, who developed sudden shortness of breath while walking the dog, which was noted and witnessed by her friend. The patient's past medical history is free of cardiac disease. She denies chest pain, denies shortness of breath. Negative hypertension. Negative diabetes mellitus. No previous myocardial infarction. SOCIAL HISTORY: The patient is an active smoker. REVIEW OF SYSTEMS: Fourteen-point review of systems is reviewed in detail. She denies cardiac symptomatology. PHYSICAL EXAMINATION: VITAL SIGNS: The blood pressure is 108/61, heart rate is 105. NECK: Negative JVD. LUNGS: Without rales. HEART: Reveals S1, S2 with a short diastolic murmur. EXTREMITIES: Without edema. EKG shows bundle-branch block. LABORATORY DATA: White count is 21,000, hemoglobin is 12. Chemistries: Glucose is 193. Echocardiogram reveals good LV function with an EF of 66%. According to the echo reading, there is severe mitral stenosis with mitral regurgitation. She was noted to have severe tricuspid regurg with severe pulmonary hypertension. IMPRESSION: 1. Acute respiratory failure. 2. Mitral regurgitation well as a tricuspid regurgitation, documented pulmonary hypertension. PLAN: Given these findings, we will discuss these findings with the patient. The patient may need cardiac catheterization and evaluation for valve surgery. We will need to understand the cause of her pulmonary hypertension. Benjy Cancino MD
--- NOTE | 2017-08-02 17:52 | CP.PCM.PN ---
Subjective - Date & Time of Evaluation Date of Evaluation: 08/02/17 Time of Evaluation: 14:00 - Subjective Subjective: Infectious Disease Follow Up: August 02, 2017 52 [address] in [address] with friend developed respiratory distress. The patient was taken in by ENT who had to give Ketamine as the patient was severely agitated. Pulse oximeter showed oxygen saturation down to 70%. She required intubation in the ER. Patient was extubated today (08/01/2017). Only reported medical history is Asthma. Awake and Alert today. No new complaints. Objective - Vital Signs/Intake and Output Vital Signs (last 24 hours): Temp Pulse Resp BP Pulse Ox 99.1 F 148 H 16 108/61 94 L 08/02/17 04:00 08/02/17 14:00 08/01/17 20:10 08/02/17 10:15 08/01/17 20:20 Intake and Output: 08/02/17 08/02/17 06:59 18:59 Output Total 550 Balance -550 - Medications Medications: Current Medications Acetaminophen (Tylenol 325mg Tab) 650 mg PO Q6H PRN PRN Reason: Fever >100.4 F Albuterol/Ipratropium (Duoneb 3 Mg/0.5 Mg (3 Ml) Ud) 3 ml IH Q2H PRN PRN Reason: Shortness of Breath Albuterol/Ipratropium (Duoneb 3 Mg/0.5 Mg (3 Ml) Ud) 3 ml IH [id number] [facility] Last Admin: 08/02/17 13:22 Dose: 3 ml Amoxicillin/Clavulanate Potassium (Augmentin 500 Mg-125 Mg Tab) 1 tab PO Q8 [facility] PRN Reason: Protocol Last Admin: 08/02/17 14:21 Dose: 1 tab Azithromycin (Zithromax) 500 mg PO DAILY [facility] PRN Reason: Protocol Enoxaparin Sodium (Lovenox) 40 mg SC DAILY [facility] PRN Reason: Protocol Last Admin: 08/02/17 09:06 Dose: 40 mg Furosemide (Lasix) 20 mg IVP Q12 [facility] Insulin Human Regular (Humulin R Low) 0 units SC ACHS [facility] PRN Reason: Protocol Last Admin: 08/02/17 12:20 Dose: 1 units Methylprednisolone (Medrol) 40 mg PO DAILY [facility] Stop: 08/04/17 10:01 Pantoprazole Sodium (Protonix Inj) 40 mg IVP DAILY [facility]ERT[facility] Last Admin: 08/02/17 09:07 Dose: 40 mg - Labs Labs: 08/02/17 05:50 08/02/17 05:50 - Constitutional Appears: Non-toxic, No Acute Distress - Head Exam Head Exam: ATRAUMATIC, NORMOCEPHALIC - Eye Exam Eye Exam: EOMI, PERRL Pupil Exam: NORMAL ACCOMODATION, PERRL - ENT Exam ENT Exam: Mucous Membranes Moist, Normal External Ear Exam, TM's Normal Bilaterally - Neck Exam Neck Exam: Full ROM, Normal Inspection - Respiratory Exam Respiratory Exam: Clear to Ausculation Bilateral, NORMAL BREATHING PATTERN. absent: Rales, Rhonchi, Wheezes - Cardiovascular Exam Cardiovascular Exam: REGULAR RHYTHM, RRR, +S1, +S2 - GI/Abdominal Exam GI & Abdominal Exam: Soft, Normal Bowel Sounds. absent: Distended, Tenderness - Extremities Exam Extremities Exam: Full ROM, Normal Inspection - Neurological Exam Neurological Exam: Alert, Awake, CN II-XII Intact, Oriented x3 - Psychiatric Exam Psychiatric exam: Normal Affect, Normal Mood - Skin Skin Exam: Intact, Normal Color Assessment and Plan - Assessment and Plan (Free Text) Assessment: 52 yo female with respiratory distress and AMS on presentation. Required intubation. The patient had leukocytosis up to 17. They were able to extubate today. Influenza negative. Right basilar infiltrate on Chest X-ray with signs of CHF. The patient likely has additional medical issues including potential substance abuse issues that she has not told us. On Rocephin and Azithromycin for potential pneumonia. Symptoms more likely secondary to Asthma. Can consider conversion of antibiotic to PO Augmentin and Azithromycin. Supportive care. Procalcitonin negative. Cultures pending. Thank you for allowing me to participate in the care of the patient, we will follow with you.
[2017-08-03] MEDS: Albuterol-Ipratrop 3 mg / 0.5 (3 ml) UD IH SCH ×4 (01:54→19:06)
[2017-08-03] MEDS: Pantoprazole 40 mg EC Tab PO SCH (05:13)
[2017-08-03] MEDS: Amoxicillin-Clav 500-125 mg Tab PO SCH ×3 (05:13→21:20)
[2017-08-03 05:48] LABS: BASO # 0.01 K/mm3 (0.0-2.0); BASO % 0.1 % (0.0-3.0); EOS % 0.1 % (1.5-5.0); GRAN # 14.21 (1.4-6.5); GRAN % 79.5 % (50.0-68.0); HEMOGLOBIN 12.4 g/dL (12.0-16.0); LYMPH # 2.5 (1.2-3.4); LYMPH % 13.8 % (22.0-35.0); MEAN CELL VOLUME 90.9 fl (80.0-105.0); MEAN CORPUSCULAR HEMOGLOBIN 28.8 pg (25.0-35.0); MEAN CORPUSCULAR HGB CONC 31.7 g/dl (31.0-37.0); MEAN PLATELET VOLUME 10.9 fl (7.0-11.0); MONO # 1.2 (0.1-0.6); MONO % 6.5 % (1.0-6.0); RBC 4.3 10^6/uL (3.5-6.1); RED CELL DISTRIBUTION WIDTH 13.9 % (11.5-14.5); WHITE BLOOD COUNT 17.9 10^3/ul (4.5-11.0)
[2017-08-03 06:03] LABS: ALB/GLOB RATIO 1.2 (1.1-1.8); ALBUMIN 4.2 g/dL (3.0-4.8); ALT/SGPT 29 U/L (7-56); AST/SGOT 18 U/L (14-36); BLOOD UREA NITROGEN 22 mg/dL (7-21); CALCIUM 9.4 mg/dL (8.4-10.5); GFR AFRICAN-AMERICAN > 60; GFR NON-AFRICAN AMERICAN > 60
[2017-08-03] MEDS ORDERED: Potassium Chloride 20 mEq ER Tab PO STA (07:33)
[2017-08-03] MEDS: Enoxaparin 40 mg Syringe SC SCH (09:11)
[2017-08-03] MEDS: Insulin Reg-LOW-Coverage SC SCH ×5 (09:19→22:00)
--- NOTE | 2017-08-03 10:38 | CP.PCM.PN ---
<Devaughn Patel - Last Filed: 08/03/17 10:35> Subjective - Date & Time of Evaluation Date of Evaluation: 08/03/17 Time of Evaluation: 10:35 - Subjective Subjective: Medicine Progress Note: Patient seen and assessed at bedside in ICU. No acute events overnight noted by patient or nursing staff. Patient without complaints at this time including fever, chills, headache, chest pain, SOB, cough, abdominal pain, N/V/D/C, urinary changes, skin changes or any numbness/tingling/weakness of any extremity. Objective - Vital Signs/Intake and Output Vital Signs (last 24 hours): Temp Pulse Resp BP Pulse Ox 98.4 F 86 13 95/54 L 93 L 08/03/17 04:00 08/03/17 06:10 08/03/17 06:10 08/03/17 09:13 08/03/17 06:10 Intake and Output: 08/03/17 08/03/17 06:59 18:59 Intake Total 2400 Output Total 3400 Balance -1000 - Medications Medications: Current Medications Acetaminophen (Tylenol 325mg Tab) 650 mg PO Q6H PRN PRN Reason: Fever >100.4 F Last Admin: 08/02/17 21:52 Dose: 650 mg Albuterol/Ipratropium (Duoneb 3 Mg/0.5 Mg (3 Ml) Ud) 3 ml IH Q2H PRN PRN Reason: Shortness of Breath Albuterol/Ipratropium (Duoneb 3 Mg/0.5 Mg (3 Ml) Ud) 3 ml IH [id number] [facility] Last Admin: 08/03/17 07:57 Dose: 3 ml Amoxicillin/Clavulanate Potassium (Augmentin 500 Mg-125 Mg Tab) 1 tab PO Q8 [facility]ERT[facility] PRN Reason: Protocol Last Admin: 08/03/17 05:13 Dose: 1 tab Azithromycin (Zithromax) 500 mg PO DAILY [facility] AL[facility]ERTO PRN Reason: Protocol Last Admin: 08/03/17 09:12 Dose: 500 mg Enoxaparin Sodium (Lovenox) 40 mg SC DAILY [facility] ALBERT[facility] PRN Reason: Protocol Last Admin: 08/03/17 09:11 Dose: 40 mg Furosemide (Lasix) 20 mg IVP Q12 [facility] Last Admin: 08/03/17 09:13 Dose: 20 mg Insulin Human Regular (Humulin R Low) 0 units SC ACHS [facility] PRN Reason: Protocol Last Admin: 08/03/17 09:24 Dose: Not Given Methylprednisolone (Medrol) 40 mg PO DAILY [facility] Stop: 08/04/17 10:01 Last Admin: 08/03/17 09:20 Dose: 40 mg Pantoprazole Sodium (Protonix Ec Tab) 40 mg PO 0600 [facility] Last Admin: 08/03/17 05:13 Dose: 40 mg - Labs Labs: 08/03/17 05:00 08/03/17 05:00 - Constitutional Appears: Non-toxic, No Acute Distress - Head Exam Head Exam: ATRAUMATIC, NORMOCEPHALIC - Eye Exam Eye Exam: EOMI, Normal appearance Pupil Exam: NORMAL ACCOMODATION, PERRL - ENT Exam ENT Exam: Mucous Membranes Moist, Normal Exam - Neck Exam Neck Exam: Full ROM, Normal Inspection - Respiratory Exam Respiratory Exam: Rhonchi (Trace in bilateral lung bases; Noted to be improved from previous exam), NORMAL BREATHING PATTERN. absent: Accessory Muscle Use, Chest Wall Tenderness, Decreased Breath Sounds, Clear to Ausculation Bilateral, Prolonged Expiratory Phase, Rales, Wheezes, Respiratory Distress, Stridor - Cardiovascular Exam Cardiovascular Exam: REGULAR RHYTHM, RRR, +S1, +S2. absent: Bradycardia, Tachycardia, Clicks, Diastolic murmur, Gallop, Irregular Rhythm, JVD, Rubs, +S4 , Murmur - GI/Abdominal Exam GI & Abdominal Exam: Soft, Normal Bowel Sounds. absent: Tenderness - Extremities Exam Extremities Exam: Full ROM, Normal Capillary Refill, Normal Inspection. absent : Calf Tenderness, Joint Swelling, Pedal Edema, Tenderness - Neurological Exam Neurological Exam: Alert, Awake, Oriented x3 - Psychiatric Exam Psychiatric exam: Normal Affect, Normal Mood - Skin Skin Exam: Dry, Intact, Normal Color, Warm Assessment and Plan - Assessment and Plan (Free Text) Assessment: 52 year old female with a past medical history significant for asthma and DM2 who presented with hypoxic and hypercapneic respiratory failure secondary to asthma exacerbation and/or CAP. Patient previously intubated but currently extubated on room air. Patient currently on Augmentin and Zithromax for empiric coverage. Plan: 1. Asthma Exacerbation -Previously intubated for hypoxic and hypercapneic respiratory failure and currently extubated on room air -Continue Duonebs Q6 scheduled and Q2 PRN -Continue Solu-Medrol 40mg PO daily for two doses -Continue supplemental oxygen via NC as needed 2. CAP -Chest X-Ray showed right basilar infiltrates -Afebrile for 12 hours, improving leukocytosis and without tachycardia or tachypnea -Continue Augmentin and Zithromax -Continue Tylenol PRN -ID consulted, all recommendations appreciated 3. Severe Mitral Stenosis/Mitral Insufficiency -Echo noted above findings along with severe tricuspid regurgitation and pulmonary hypertension -Chest X-Ray showing improved vascular congestion -Continue Lasix 20mg IVP Q12 -Cardiology to evaluate and discuss possible cardiac cath and treatment of pulmonary hypertension -Cardiology consulted, all recommendations appreciated 4. History of DM2 -SSI-Low and Accuchecks ACHS -Carbohydrate Consistent Diet GI Prophylaxis: Protonix DVT Prophylaxis: Lovenox Patient seen and case discussed with attending, Dr. Prieto. <Rudy Prieto - Last Filed: 08/03/17 15:23> Objective - Vital Signs/Intake and Output Vital Signs (last 24 hours): Temp Pulse Resp BP Pulse Ox 98.0 F 98 H 15 99/80 L 79 L 08/03/17 11:51 08/03/17 12:50 08/03/17 12:50 08/03/17 12:00 08/03/17 12:50 Intake and Output: 08/03/17 08/03/17 06:59 18:59 Intake Total 2400 Output Total 3400 Balance -1000 - Medications Medications: Current Medications Acetaminophen (Tylenol 325mg Tab) 650 mg PO Q6H PRN PRN Reason: Fever >100.4 F Last Admin: 08/02/17 21:52 Dose: 650 mg Albuterol/Ipratropium (Duoneb 3 Mg/0.5 Mg (3 Ml) Ud) 3 ml IH Q2H PRN PRN Reason: Shortness of Breath Albuterol/Ipratropium (Duoneb 3 Mg/0.5 Mg (3 Ml) Ud) 3 ml IH [id number] [facility] Last Admin: 08/03/17 13:30 Dose: 3 ml Amoxicillin/Clavulanate Potassium (Augmentin 500 Mg-125 Mg Tab) 1 tab PO Q8 [facility]ERTO PRN Reason: Protocol Last Admin: 08/03/17 05:13 Dose: 1 tab Azithromycin (Zithromax) 500 mg PO DAILY [facility] PRN Reason: Protocol Last Admin: 08/03/17 09:12 Dose: 500 mg Enoxaparin Sodium (Lovenox) 40 mg SC DAILY [facility]ERT[facility] PRN Reason: Protocol Last Admin: 08/03/17 09:11 Dose: 40 mg Furosemide (Lasix) 20 mg IVP Q12 [facility] Last Admin: 08/03/17 09:13 Dose: 20 mg Insulin Human Regular (Humulin R Low) 0 units SC ACHS [facility] AL[facility]ERTO PRN Reason: Protocol Last Admin: 08/03/17 12:29 Dose: Not Given Methylprednisolone (Medrol) 40 mg PO DAILY [facility] Stop: 08/04/17 10:01 Last Admin: 08/03/17 09:20 Dose: 40 mg Pantoprazole Sodium (Protonix Ec Tab) 40 mg PO 0600 [facility] Last Admin: 08/03/17 05:13 Dose: 40 mg - Labs Labs: 08/03/17 05:00 08/03/17 05:00 Attending/Attestation - Attestation I have personally seen and examined this patient.: Yes I have fully participated in the care of the patient.: Yes I have reviewed all pertinent clinical information, including history, physical exam and plan: Yes Notes (Text): 08/03/17 15:21 Medical record note made by the resident after discussion with my direction and input after the patient was personally seen and examined by me. I have reviewed the chart and agree that the record accurately reflects by personal performance of the history, physical exam, data review, and medical decision-making, in the course for the patient. I have also personally directed the plan of care. 52 yrs old female with PMHx of COPD, presented to the ER by EMS with change of mental status, was found to be respiratory distress and was intubated in the emergency room. She was treated with Neb/IV steroid and antibiotics for Pneumonia .She was extubated next day.Procalcitonin level is normal.Antibiotics can be discontinued. X ray showed congestion, Echo showed severe MS/Pulmonary HTN and TR.Patient has responded well to IV lasix.Renal functions are stable..Cardiology evaluation is appreciated. Hypokalemia, will replace electrolyte. Management plan was discussed in detail with patient. Education was provided.
--- NOTE | 2017-08-03 16:58 | CP.PCM.PN ---
Subjective - Date & Time of Evaluation Date of Evaluation: 08/03/17 Time of Evaluation: 15:00 - Subjective Subjective: Infectious Disease Follow Up: August 03, 2017 52 yo walking in the [address] with friend developed respiratory distress. The patient was taken in by ENT who had to give Ketamine as the patient was severely agitated. Pulse oximeter showed oxygen saturation down to 70%. She required intubation in the ER. Patient was extubated (08/01/2017). Only reported medical history is Asthma. Awake and Alert today. No new complaints. Afebrile with moderate leukocytosis (secondary to steroid administration?). Objective - Vital Signs/Intake and Output Vital Signs (last 24 hours): Temp Pulse Resp BP Pulse Ox 98.0 F 98 H 15 99/80 L 79 L 08/03/17 11:51 08/03/17 12:50 08/03/17 12:50 08/03/17 12:00 08/03/17 12:50 Intake and Output: 08/03/17 08/03/17 06:59 18:59 Intake Total 2400 Output Total 3400 Balance -1000 - Medications Medications: Current Medications Acetaminophen (Tylenol 325mg Tab) 650 mg PO Q6H PRN PRN Reason: Fever >100.4 F Last Admin: 08/02/17 21:52 Dose: 650 mg Albuterol/Ipratropium (Duoneb 3 Mg/0.5 Mg (3 Ml) Ud) 3 ml IH Q2H PRN PRN Reason: Shortness of Breath Albuterol/Ipratropium (Duoneb 3 Mg/0.5 Mg (3 Ml) Ud) 3 ml IH [id number] [facility] Last Admin: 08/03/17 13:30 Dose: 3 ml Amoxicillin/Clavulanate Potassium (Augmentin 500 Mg-125 Mg Tab) 1 tab PO Q8 [facility]ERT[facility] PRN Reason: Protocol Last Admin: 08/03/17 15:31 Dose: 1 tab Azithromycin (Zithromax) 500 mg PO DAILY [facility] PRN Reason: Protocol Last Admin: 08/03/17 09:12 Dose: 500 mg Enoxaparin Sodium (Lovenox) 40 mg SC DAILY [facility]ERT[facility] PRN Reason: Protocol Last Admin: 08/03/17 09:11 Dose: 40 mg Furosemide (Lasix) 20 mg IVP Q12 [facility] Last Admin: 08/03/17 09:13 Dose: 20 mg Insulin Human Regular (Humulin R Low) 0 units SC ACHS [facility] PRN Reason: Protocol Last Admin: 08/03/17 16:24 Dose: 1 units Methylprednisolone (Medrol) 40 mg PO DAILY [facility] Stop: 08/04/17 10:01 Last Admin: 08/03/17 09:20 Dose: 40 mg Pantoprazole Sodium (Protonix Ec Tab) 40 mg PO 0600 [facility] Last Admin: 08/03/17 05:13 Dose: 40 mg - Labs Labs: 08/03/17 05:00 08/03/17 05:00 - Constitutional Appears: Non-toxic, No Acute Distress - Head Exam Head Exam: ATRAUMATIC, NORMOCEPHALIC - Eye Exam Eye Exam: EOMI, PERRL Pupil Exam: NORMAL ACCOMODATION, PERRL - ENT Exam ENT Exam: Mucous Membranes Moist, Normal External Ear Exam, TM's Normal Bilaterally - Neck Exam Neck Exam: Full ROM, Normal Inspection - Respiratory Exam Respiratory Exam: Clear to Ausculation Bilateral, NORMAL BREATHING PATTERN. absent: Rales, Rhonchi, Wheezes - Cardiovascular Exam Cardiovascular Exam: REGULAR RHYTHM, RRR, +S1, +S2 - GI/Abdominal Exam GI & Abdominal Exam: Soft, Normal Bowel Sounds. absent: Distended, Tenderness - Extremities Exam Extremities Exam: Full ROM, Normal Inspection - Neurological Exam Neurological Exam: Alert, Awake, CN II-XII Intact, Oriented x3 - Psychiatric Exam Psychiatric exam: Normal Affect, Normal Mood - Skin Skin Exam: Intact, Normal Color Assessment and Plan - Assessment and Plan (Free Text) Assessment: 52 yo female with respiratory distress and AMS on presentation. Required intubation. The patient had leukocytosis up to 17. They were able to extubate today. Influenza negative. Right basilar infiltrate on Chest X-ray with signs of CHF. The patient likely has additional medical issues including potential substance abuse issues that she has not told us. On Rocephin and Azithromycin for potential pneumonia. Symptoms more likely secondary to Asthma. Can consider conversion of antibiotic to PO Augmentin and Azithromycin. Supportive care. Procalcitonin negative. Cultures pending... to date all cultures have been negative. Thank you for allowing me to participate in the care of the patient, we will follow with you.
[2017-08-04] MEDS: Albuterol-Ipratrop 3 mg / 0.5 (3 ml) UD IH SCH ×4 (01:03→20:14)
[2017-08-04] MEDS: Pantoprazole 40 mg EC Tab PO SCH (05:57)
[2017-08-04] MEDS: Amoxicillin-Clav 500-125 mg Tab PO SCH ×3 (05:57→21:23)
[2017-08-04] MEDS: Insulin Reg-LOW-Coverage SC SCH ×4 (08:12→21:43)
[2017-08-04 08:54] LABS: BASO # 0.01 K/mm3 (0.0-2.0); BASO % 0.1 % (0.0-3.0); EOS # 0.1 (0.0-0.7); EOS % 0.3 % (1.5-5.0); GRAN # 11.28 (1.4-6.5); GRAN % 73.2 % (50.0-68.0); HEMOGLOBIN 14.2 g/dL (12.0-16.0); LYMPH % 19.4 % (22.0-35.0); MEAN CELL VOLUME 90.3 fl (80.0-105.0); MEAN CORPUSCULAR HEMOGLOBIN 29.2 pg (25.0-35.0); MEAN CORPUSCULAR HGB CONC 32.3 g/dl (31.0-37.0); MEAN PLATELET VOLUME 10.5 fl (7.0-11.0); MONO # 1.1 (0.1-0.6); RBC 4.86 10^6/uL (3.5-6.1); RED CELL DISTRIBUTION WIDTH 13.6 % (11.5-14.5); WHITE BLOOD COUNT 15.4 10^3/ul (4.5-11.0)
[2017-08-04 09:10] LABS: ALB/GLOB RATIO 1.4 (1.1-1.8); ALBUMIN 4.5 g/dL (3.0-4.8); ALT/SGPT 53 U/L (7-56); AST/SGOT 32 U/L (14-36); BLOOD UREA NITROGEN 27 mg/dL (7-21); CALCIUM 10.3 mg/dL (8.4-10.5); GFR AFRICAN-AMERICAN > 60; GFR NON-AFRICAN AMERICAN > 60
[2017-08-04] MEDS: Enoxaparin 40 mg Syringe SC SCH (09:17)
--- NOTE | 2017-08-04 10:31 | CP.PCM.PN ---
<Devaughn Patel - Last Filed: 08/04/17 10:27> Subjective - Date & Time of Evaluation Date of Evaluation: 08/04/17 Time of Evaluation: 10:28 - Subjective Subjective: Medicine Progress Note: Patient seen and assessed at bedside. No acute events overnight noted by patient or nursing staff. Patient endorses that her cough has improved. Patient reports no other complaints at this time including fever, chills, headache, chest pain, palpitations, SOB, wheezing, abdominal pain, N/V/D/C, urinary changes, skin changes or any numbness/tingling/weakness of any extremity. Objective - Vital Signs/Intake and Output Vital Signs (last 24 hours): Temp Pulse Resp BP Pulse Ox 98.2 F 77 20 103/67 94 L 08/04/17 06:00 08/04/17 06:00 08/04/17 06:00 08/04/17 09:17 08/04/17 06:00 Intake and Output: 08/04/17 08/04/17 06:59 18:59 Intake Total Balance - Medications Medications: Current Medications Acetaminophen (Tylenol 325mg Tab) 650 mg PO Q6H PRN PRN Reason: Fever >100.4 F Last Admin: 08/02/17 21:52 Dose: 650 mg Albuterol/Ipratropium (Duoneb 3 Mg/0.5 Mg (3 Ml) Ud) 3 ml IH Q2H PRN PRN Reason: Shortness of Breath Albuterol/Ipratropium (Duoneb 3 Mg/0.5 Mg (3 Ml) Ud) 3 ml IH [id number] [facility] Last Admin: 08/04/17 07:33 Dose: 3 ml Amoxicillin/Clavulanate Potassium (Augmentin 500 Mg-125 Mg Tab) 1 tab PO Q8 JUAN ALBERTO PRN Reason: Protocol Last Admin: 08/04/17 05:57 Dose: 1 tab Azithromycin (Zithromax) 500 mg PO DAILY JUAN ALBERTO PRN Reason: Protocol Last Admin: 08/04/17 09:16 Dose: 500 mg Enoxaparin Sodium (Lovenox) 40 mg SC DAILY JUAN ALBERTO PRN Reason: Protocol Last Admin: 08/04/17 09:17 Dose: 40 mg Furosemide (Lasix) 20 mg IVP Q12 [facility] Last Admin: 08/04/17 09:17 Dose: 20 mg Insulin Human Regular (Humulin R Low) 0 units SC ACHS [facility] PRN Reason: Protocol Last Admin: 08/04/17 08:12 Dose: Not Given Pantoprazole Sodium (Protonix Ec Tab) 40 mg PO 0600 [facility] Last Admin: 08/04/17 05:57 Dose: 40 mg - Labs Labs: 08/04/17 08:30 08/04/17 08:30 - Constitutional Appears: Non-toxic, No Acute Distress - Head Exam Head Exam: ATRAUMATIC, NORMOCEPHALIC - Eye Exam Eye Exam: EOMI, Normal appearance Pupil Exam: NORMAL ACCOMODATION, PERRL - ENT Exam ENT Exam: Mucous Membranes Moist, Normal Exam - Neck Exam Neck Exam: Full ROM, Normal Inspection. absent: Lymphadenopathy - Respiratory Exam Respiratory Exam: Clear to Ausculation Bilateral, NORMAL BREATHING PATTERN. absent: Accessory Muscle Use, Chest Wall Tenderness, Decreased Breath Sounds, Prolonged Expiratory Phase, Rales, Rhonchi, Wheezes, Respiratory Distress, Stridor - Cardiovascular Exam Cardiovascular Exam: REGULAR RHYTHM, RRR, +S1, +S2. absent: Bradycardia, Tachycardia, Clicks, Diastolic murmur, Gallop, Irregular Rhythm, JVD, Rubs, +S4 , Murmur - GI/Abdominal Exam GI & Abdominal Exam: Soft, Normal Bowel Sounds. absent: Tenderness - Extremities Exam Extremities Exam: Full ROM, Normal Capillary Refill, Normal Inspection. absent : Calf Tenderness, Joint Swelling, Pedal Edema, Tenderness - Back Exam Back Exam: NORMAL INSPECTION - Neurological Exam Neurological Exam: Alert, Awake, CN II-XII Intact, Normal Gait, Oriented x3 - Psychiatric Exam Psychiatric exam: Normal Affect, Normal Mood - Skin Skin Exam: Dry, Intact, Normal Color, Warm Assessment and Plan - Assessment and Plan (Free Text) Assessment: 52 year old female with a past medical history significant for asthma and DM2 who presented with hypoxic and hypercapneic respiratory failure secondary to asthma exacerbation and/or CAP. Patient previously intubated but currently extubated on room air. Patient currently on Augmentin and Zithromax for empiric coverage for CAP. Patient for possible cardiac cath with Dr. Cancino. Plan: 1. Asthma Exacerbation -Previously intubated for hypoxic and hypercapneic respiratory failure and currently extubated on room air -Continue Duonebs Q6 scheduled and Q2 PRN -Continue Solu-Medrol 40mg PO daily for two doses -Continue supplemental oxygen via NC as needed 2. CAP -Chest X-Ray showed right basilar infiltrates -Afebrile for 36 hours, with improving leukocytosis and without tachycardia or tachypnea -Continue Augmentin (Day 3) and Zithromax (Day 2) -Continue Tylenol PRN -ID consulted, all recommendations appreciated 3. Severe Mitral Stenosis/Mitral Insufficiency -Echo noted above findings along with severe tricuspid regurgitation and pulmonary hypertension -Chest X-Ray showing improved vascular congestion -Continue Lasix 20mg IVP Q12 -Cardiology to evaluate and discuss possible cardiac cath and treatment of pulmonary hypertension -Cardiology consulted, all recommendations appreciated 4. History of DM2 -SSI-Low and Accuchecks ACHS -Carbohydrate Consistent Diet GI Prophylaxis: Protonix DVT Prophylaxis: Lovenox Patient seen and case discussed with attending, Dr. Cedrick Valentin. <Cedrick Valentin B - Last Filed: 08/04/17 13:14> Objective - Vital Signs/Intake and Output Vital Signs (last 24 hours): Temp Pulse Resp BP Pulse Ox 98.4 F 97 H 21 104/65 94 L 08/04/17 12:00 08/04/17 12:00 08/04/17 12:00 08/04/17 12:00 08/04/17 06:00 Intake and Output: 08/04/17 08/04/17 06:59 18:59 Intake Total Balance - Medications Medications: Current Medications Acetaminophen (Tylenol 325mg Tab) 650 mg PO Q6H PRN PRN Reason: Fever >100.4 F Last Admin: 08/02/17 21:52 Dose: 650 mg Albuterol/Ipratropium (Duoneb 3 Mg/0.5 Mg (3 Ml) Ud) 3 ml IH Q2H PRN PRN Reason: Shortness of Breath Albuterol/Ipratropium (Duoneb 3 Mg/0.5 Mg (3 Ml) Ud) 3 ml IH [id number] [facility] Last Admin: 08/04/17 07:33 Dose: 3 ml Amoxicillin/Clavulanate Potassium (Augmentin 500 Mg-125 Mg Tab) 1 tab PO Q8 JUAN ALBERTO PRN Reason: Protocol Last Admin: 08/04/17 05:57 Dose: 1 tab Azithromycin (Zithromax) 500 mg PO DAILY [facility] PRN Reason: Protocol Last Admin: 08/04/17 09:16 Dose: 500 mg Enoxaparin Sodium (Lovenox) 40 mg SC DAILY JUAN ALBERTO PRN Reason: Protocol Last Admin: 08/04/17 09:17 Dose: 40 mg Furosemide (Lasix) 20 mg IVP Q12 [facility] Last Admin: 08/04/17 09:17 Dose: 20 mg Insulin Human Regular (Humulin R Low) 0 units SC ACHS JUAN ALBERTO PRN Reason: Protocol Last Admin: 08/04/17 12:05 Dose: Not Given Pantoprazole Sodium (Protonix Ec Tab) 40 mg PO 0600 [facility] Last Admin: 08/04/17 05:57 Dose: 40 mg - Labs Labs: 08/04/17 08:30 08/04/17 08:30 Attending/Attestation - Attestation I have personally seen and examined this patient.: Yes I have fully participated in the care of the patient.: Yes I have reviewed all pertinent clinical information, including history, physical exam and plan: Yes Notes (Text): I have seen and examined the patient at bedside. Agree with the above note with the following additions/ exceptions: Briefly this is 52 yrs old female with history of COPD, asthma and DM-2 presented to the ER by EMS with change of mental status, was found to be respiratory distress and was intubated in the emergency room. She was treated with Neb/IV steroid and antibiotics for Pneumonia .She was extubated next day. Procalcitonin level is normal. Patient has leukocytsis. Antibiotics can be discontinued. Today patient is alert, awake and oriented to time, place and person. X ray showed congestion. Echo showed severe MS/Pulmonary HTN and TR. Patient has responded well to IV lasix. There is possible plan for cardiac cath on Saturday and need eval for valve surgery. Renal functions are stable. Cardiology evaluation is appreciated. Management plan was discussed in detail with patient. Education was provided. Upon discharge patient will follow up with PMD of choice. Dr Cedrick Valentin
--- NOTE | 2017-08-04 18:36 | CP.PCM.PN ---
Subjective - Date & Time of Evaluation Date of Evaluation: 08/04/17 Time of Evaluation: 17:00 - Subjective Subjective: Infectious Disease Follow Up: August 04, 2017 52 yo [address] in [address] with friend developed respiratory distress. The patient was taken in by ENT who had to give Ketamine as the patient was severely agitated. Pulse oximeter showed oxygen saturation down to 70%. She required intubation in the ER. Patient was extubated (08/01/2017). Only reported medical history is Asthma. Awake and Alert today. No new complaints. She remains extubated and appears comfortable. Afebrile with moderate leukocytosis (secondary to steroid administration?) that is slowly downtrending. Objective - Vital Signs/Intake and Output Vital Signs (last 24 hours): Temp Pulse Resp BP Pulse Ox 98.1 F 93 H 20 115/76 94 L 08/04/17 16:45 08/04/17 16:45 08/04/17 16:45 08/04/17 16:45 08/04/17 06:00 Intake and Output: 08/04/17 08/04/17 06:59 18:59 Intake Total Balance - Medications Medications: Current Medications Acetaminophen (Tylenol 325mg Tab) 650 mg PO Q6H PRN PRN Reason: Fever >100.4 F Last Admin: 08/02/17 21:52 Dose: 650 mg Albuterol/Ipratropium (Duoneb 3 Mg/0.5 Mg (3 Ml) Ud) 3 ml IH Q2H PRN PRN Reason: Shortness of Breath Albuterol/Ipratropium (Duoneb 3 Mg/0.5 Mg (3 Ml) Ud) 3 ml IH [id number] [facility] Last Admin: 08/04/17 13:48 Dose: 3 ml Amoxicillin/Clavulanate Potassium (Augmentin 500 Mg-125 Mg Tab) 1 tab PO Q8 JUAN ALBERTO PRN Reason: Protocol Last Admin: 08/04/17 13:21 Dose: 1 tab Azithromycin (Zithromax) 500 mg PO DAILY JUAN ALBERTO PRN Reason: Protocol Last Admin: 08/04/17 09:16 Dose: 500 mg Enoxaparin Sodium (Lovenox) 40 mg SC DAILY JUAN ALBERTO PRN Reason: Protocol Last Admin: 08/04/17 09:17 Dose: 40 mg Furosemide (Lasix) 20 mg IVP Q12 [facility] Last Admin: 08/04/17 09:17 Dose: 20 mg Insulin Human Regular (Humulin R Low) 0 units SC ACHS JUAN ALBERTO PRN Reason: Protocol Last Admin: 08/04/17 16:53 Dose: 2 units Pantoprazole Sodium (Protonix Ec Tab) 40 mg PO 0600 [facility] Last Admin: 08/04/17 05:57 Dose: 40 mg - Labs Labs: 08/04/17 08:30 08/04/17 08:30 - Constitutional Appears: Non-toxic, No Acute Distress - Head Exam Head Exam: ATRAUMATIC, NORMOCEPHALIC - Eye Exam Eye Exam: EOMI, PERRL Pupil Exam: NORMAL ACCOMODATION, PERRL - ENT Exam ENT Exam: Mucous Membranes Moist, Normal External Ear Exam, TM's Normal Bilaterally - Neck Exam Neck Exam: Full ROM, Normal Inspection - Respiratory Exam Respiratory Exam: Clear to Ausculation Bilateral, NORMAL BREATHING PATTERN. absent: Rales, Rhonchi, Wheezes - Cardiovascular Exam Cardiovascular Exam: REGULAR RHYTHM, RRR, +S1, +S2 - GI/Abdominal Exam GI & Abdominal Exam: Soft, Normal Bowel Sounds. absent: Distended, Tenderness - Extremities Exam Extremities Exam: Full ROM, Normal Inspection - Neurological Exam Neurological Exam: Alert, Awake, CN II-XII Intact, Oriented x3 - Psychiatric Exam Psychiatric exam: Normal Affect, Normal Mood - Skin Skin Exam: Intact, Normal Color Assessment and Plan - Assessment and Plan (Free Text) Assessment: 52 yo female with respiratory distress and AMS on presentation. Required intubation. The patient had leukocytosis up to 17. They were able to extubate today. Influenza negative. Right basilar infiltrate on Chest X-ray with signs of CHF. The patient likely has additional medical issues including potential substance abuse issues that she has not told us. On Rocephin and Azithromycin for potential pneumonia. Symptoms more likely secondary to Asthma. On antibiotic to PO Augmentin and Azithromycin. No more than 7 days of treatment. Supportive care. Procalcitonin negative. Cultures pending... to date all cultures have been negative. Thank you for allowing me to participate in the care of the patient, we will follow with you.
[2017-08-04 22:15] LABS: BENZODIAZEPINES, UR NEGATIVE (NEGATIVE)
[2017-08-04 22:23] LABS: BARBITURATES, UR NEGATIVE (NEGATIVE); OPIATES, UR NEGATIVE (NEGATIVE); PHENCYCLIDINE, UR NEGATIVE (NEGATIVE)
[2017-08-05] MEDS: Albuterol-Ipratrop 3 mg / 0.5 (3 ml) UD IH SCH ×3 (01:16→13:32)
[2017-08-05] MEDS: Amoxicillin-Clav 500-125 mg Tab PO SCH ×2 (05:42→15:01)
[2017-08-05] MEDS: Pantoprazole 40 mg EC Tab PO SCH (05:42)
[2017-08-05 06:37] LABS: BASO # 0.01 K/mm3 (0.0-2.0); BASO % 0.1 % (0.0-3.0); EOS # 0.1 (0.0-0.7); EOS % 0.5 % (1.5-5.0); GRAN # 12.25 (1.4-6.5); GRAN % 74.4 % (50.0-68.0); HEMOGLOBIN 14.6 g/dL (12.0-16.0); LYMPH # 2.8 (1.2-3.4); LYMPH % 17.2 % (22.0-35.0); MEAN CELL VOLUME 88.8 fl (80.0-105.0); MEAN CORPUSCULAR HEMOGLOBIN 29.2 pg (25.0-35.0); MEAN CORPUSCULAR HGB CONC 32.9 g/dl (31.0-37.0); MEAN PLATELET VOLUME 10.8 fl (7.0-11.0); MONO # 1.3 (0.1-0.6); MONO % 7.8 % (1.0-6.0); RED CELL DISTRIBUTION WIDTH 13.6 % (11.5-14.5); WHITE BLOOD COUNT 16.4 10^3/ul (4.5-11.0)
[2017-08-05 06:56] LABS: ALB/GLOB RATIO 1.3 (1.1-1.8); ALBUMIN 4.4 g/dL (3.0-4.8); ALT/SGPT 53 U/L (7-56); AST/SGOT 29 U/L (14-36); BLOOD UREA NITROGEN 25 mg/dL (7-21); CALCIUM 10.2 mg/dL (8.4-10.5); GFR AFRICAN-AMERICAN > 60; GFR NON-AFRICAN AMERICAN > 60
[2017-08-05] MEDS: Insulin Reg-LOW-Coverage SC SCH ×3 (08:04→16:30)
[2017-08-05] MEDS: Enoxaparin 40 mg Syringe SC SCH (10:11)
[2017-08-05 12:33] VITALS: RESP 18
--- NOTE | 2017-08-05 12:53 | CP.PCM.PN ---
Subjective - Date & Time of Evaluation Date of Evaluation: 08/05/17 Time of Evaluation: 07:30 - Subjective Subjective: Jody Shafer DO PGY1 - IM Progress Note Patient seen and examined at bedside. No acute events overnight. Patient reports continued improvement in her cough, but still productive of greenish sputum. She denies any chest pain, shortness of breath, abdominal pain, nausea, vomiting, diarrhea, constipation, fever, chills. Objective - Vital Signs/Intake and Output Vital Signs (last 24 hours): Temp Pulse Resp BP Pulse Ox 98 F 85 18 111/64 95 08/05/17 12:00 08/05/17 12:00 08/05/17 12:00 08/05/17 12:00 08/05/17 06:00 Intake and Output: 08/05/17 08/05/17 06:59 18:59 Intake Total 600 Balance 600 - Medications Medications: Current Medications Acetaminophen (Tylenol 325mg Tab) 650 mg PO Q6H PRN PRN Reason: Fever >100.4 F Last Admin: 08/02/17 21:52 Dose: 650 mg Albuterol/Ipratropium (Duoneb 3 Mg/0.5 Mg (3 Ml) Ud) 3 ml IH Q2H PRN PRN Reason: Shortness of Breath Albuterol/Ipratropium (Duoneb 3 Mg/0.5 Mg (3 Ml) Ud) 3 ml IH [id number] [facility] Last Admin: 08/05/17 07:52 Dose: 3 ml Amoxicillin/Clavulanate Potassium (Augmentin 500 Mg-125 Mg Tab) 1 tab PO Q8 JUAN ALBERTO PRN Reason: Protocol Last Admin: 08/05/17 05:42 Dose: 1 tab Azithromycin (Zithromax) 500 mg PO DAILY JUAN ALBERTO PRN Reason: Protocol Last Admin: 08/05/17 10:08 Dose: 500 mg Enoxaparin Sodium (Lovenox) 40 mg SC DAILY JUAN ALBERTO PRN Reason: Protocol Last Admin: 08/05/17 10:11 Dose: 40 mg Furosemide (Lasix) 20 mg IVP Q12 [facility] Last Admin: 08/05/17 10:12 Dose: 20 mg Insulin Human Regular (Humulin R Low) 0 units SC ACHS JUAN ALBERTO PRN Reason: Protocol Last Admin: 08/05/17 12:26 Dose: Not Given Pantoprazole Sodium (Protonix Ec Tab) 40 mg PO 0600 JUAN ALBERTO Last Admin: 08/05/17 05:42 Dose: 40 mg - Labs Labs: 08/05/17 05:30 08/05/17 05:30 - Constitutional Appears: Non-toxic, No Acute Distress - Head Exam Head Exam: ATRAUMATIC, NORMOCEPHALIC - Eye Exam Eye Exam: EOMI, Normal appearance, PERRL - Neck Exam Neck Exam: Full ROM, Normal Inspection - Respiratory Exam Respiratory Exam: Clear to Ausculation Bilateral, NORMAL BREATHING PATTERN. absent: Accessory Muscle Use, Rales, Rhonchi, Wheezes, Respiratory Distress - Cardiovascular Exam Cardiovascular Exam: RRR, +S1, +S2 - GI/Abdominal Exam GI & Abdominal Exam: Soft, Normal Bowel Sounds. absent: Tenderness - Extremities Exam Extremities Exam: absent: Calf Tenderness, Pedal Edema - Neurological Exam Neurological Exam: Alert, Awake, Oriented x3 - Psychiatric Exam Psychiatric exam: Normal Affect, Normal Mood - Skin Skin Exam: Dry, Intact Assessment and Plan - Assessment and Plan (Free Text) Assessment: 52 year old female with a past medical history significant for asthma and DM2 who presented with hypoxic and hypercapneic respiratory failure secondary to asthma exacerbation and/or CAP. Initially intubated, now extubated on room air. Patient currently on Augmentin and Zithromax for empiric coverage for CAP. Plan: 1. Asthma Exacerbation -Previously intubated for hypoxic and hypercapneic respiratory failure, now extubated on room air -Continue Duonebs Q6 scheduled and Q2 PRN -Completed course of steroids; no wheezing on exam -Continue supplemental oxygen via NC as needed 2. CAP -Chest X-Ray showed right basilar infiltrates -Afebrile for 36 hours, VSS -Continue Augmentin (Day 4) and Zithromax (Day 3) -Continue Tylenol PRN -ID consulted, all recommendations appreciated 3. Severe Mitral Stenosis/Mitral Insufficiency -Echo noted above findings along with severe tricuspid regurgitation and severe pulmonary hypertension -Chest X-Ray showing improved vascular congestion -Continue Lasix; changed to 40mg PO daily -Per cardio (Dr. Cancino), patient will require outpatient follow up for further evaluation and management of valvular dysfunction and pHTN -Cardiology consulted, all recommendations appreciated 4. History of DM2 -SSI-Low and Accuchecks ACHS -Carbohydrate Consistent Diet GI Prophylaxis: Protonix DVT Prophylaxis: Lovenox Patient seen and case discussed with attending, Dr. Cedrick Valentin.
[2017-08-05 14:23] VITALS: O2SAT 96
--- NOTE | 2017-08-05 17:45 | CP.PCM.PN ---
Subjective - Date & Time of Evaluation Date of Evaluation: 08/05/17 Time of Evaluation: 15:15 - Subjective Subjective: Infectious Disease Follow Up: August 05, 2017 52 yo walking in the [address] with friend developed respiratory distress. The patient was taken in by ENT who had to give Ketamine as the patient was severely agitated. Pulse oximeter showed oxygen saturation down to 70%. She required intubation in the ER. Patient was extubated (08/01/2017). Only reported medical history is Asthma. Awake and Alert today. No new complaints. She remains extubated and appears comfortable. Afebrile with mild-moderate leukocytosis (secondary to steroid administration?) . Still with cough. Objective - Vital Signs/Intake and Output Vital Signs (last 24 hours): Temp Pulse Resp BP Pulse Ox 98 F 85 18 111/64 96 08/05/17 12:00 08/05/17 12:00 08/05/17 12:00 08/05/17 12:00 08/05/17 10:00 Intake and Output: 08/05/17 08/05/17 06:59 18:59 Intake Total 600 960 Balance 600 960 - Medications Medications: Current Medications Acetaminophen (Tylenol 325mg Tab) 650 mg PO Q6H PRN PRN Reason: Fever >100.4 F Last Admin: 08/02/17 21:52 Dose: 650 mg Albuterol/Ipratropium (Duoneb 3 Mg/0.5 Mg (3 Ml) Ud) 3 ml IH Q2H PRN PRN Reason: Shortness of Breath Albuterol/Ipratropium (Duoneb 3 Mg/0.5 Mg (3 Ml) Ud) 3 ml IH [id number] [facility] Last Admin: 08/05/17 13:32 Dose: 3 ml Amoxicillin/Clavulanate Potassium (Augmentin 500 Mg-125 Mg Tab) 1 tab PO Q8 JUAN ALBERTO PRN Reason: Protocol Last Admin: 08/05/17 15:01 Dose: 1 tab Azithromycin (Zithromax) 500 mg PO DAILY [facility] PRN Reason: Protocol Last Admin: 08/05/17 10:08 Dose: 500 mg Enoxaparin Sodium (Lovenox) 40 mg SC DAILY [facility] PRN Reason: Protocol Last Admin: 08/05/17 10:11 Dose: 40 mg Furosemide (Lasix) 40 mg PO DAILY [facility] Insulin Human Regular (Humulin R Low) 0 units SC ACHS JUAN ALBERTO PRN Reason: Protocol Last Admin: 08/05/17 12:26 Dose: Not Given Pantoprazole Sodium (Protonix Ec Tab) 40 mg PO 0600 [facility] Last Admin: 08/05/17 05:42 Dose: 40 mg - Labs Labs: 08/05/17 05:30 08/05/17 05:30 - Constitutional Appears: Non-toxic, No Acute Distress - Head Exam Head Exam: ATRAUMATIC, NORMOCEPHALIC - Eye Exam Eye Exam: EOMI, PERRL Pupil Exam: NORMAL ACCOMODATION, PERRL - ENT Exam ENT Exam: Mucous Membranes Moist, Normal External Ear Exam, TM's Normal Bilaterally - Neck Exam Neck Exam: Full ROM, Normal Inspection - Respiratory Exam Respiratory Exam: Clear to Ausculation Bilateral, NORMAL BREATHING PATTERN. absent: Rales, Rhonchi, Wheezes - Cardiovascular Exam Cardiovascular Exam: REGULAR RHYTHM, RRR, +S1, +S2 - GI/Abdominal Exam GI & Abdominal Exam: Soft, Normal Bowel Sounds. absent: Distended, Tenderness - Extremities Exam Extremities Exam: Full ROM, Normal Inspection - Neurological Exam Neurological Exam: Alert, Awake, CN II-XII Intact, Oriented x3 - Psychiatric Exam Psychiatric exam: Normal Affect, Normal Mood - Skin Skin Exam: Intact, Normal Color Assessment and Plan - Assessment and Plan (Free Text) Assessment: 52 yo female with respiratory distress and AMS on presentation. Required intubation. The patient had leukocytosis up to 17. They were able to extubate today. Influenza negative. Right basilar infiltrate on Chest X-ray with signs of CHF. The patient likely has additional medical issues including potential substance abuse issues that she has not told us. On Rocephin and Azithromycin for potential pneumonia. Symptoms more likely secondary to Asthma. On antibiotic to PO Augmentin and Azithromycin. No more than 7 days of treatment. Supportive care. On steroids. Procalcitonin negative. Cultures pending... to date all cultures have been negative. Thank you for allowing me to participate in the care of the patient, we will follow with you.
[2017-08-05 18:24] VITALS: BP 106/71; PULSE 95; TEMP 98.2
--- NOTE | 2017-08-05 19:36 | PN ---
DATE: 08/05/2017 CARDIOLOGY FOLLOWUP SUBJECTIVE: The patient is comfortable in bed. No shortness of breath. No chest pain at rest. OBJECTIVE: VITAL SIGNS: Blood pressure is 111/64, heart rate in the 80s. NECK: Negative JVD. LUNGS: Without rales. HEART: S1, S2 with a 2/6 diastolic murmur. LABORATORY DATA: Hemoglobin is 14.6. Chemistries: BUN and creatinine unremarkable. IMPRESSION: 1. Status post respiratory failure. 2. Mitral regurgitation with documented mitral stenosis. 3. Pulmonary hypertension. 4. Tricuspid regurgitation. Given these findings, the patient is comfortable at this time. Given her home been being in [place] as well as her insurance that requires complicated care in [place], I have discussed this with the patient in detail. I have discussed her valvular heart issues with her in detail. She understands and she is agreeable to follow up with her doctors in [place] to continue to diagnose and care for her mitral valve disease and pulmonary hypertension. We will discontinue telemetry today. Benjy Cancino MD
--- NOTE | 2017-08-05 22:59 | CP.PCM.DIS ---
<Jody Shafer - Last Filed: 08/05/17 22:36> Provider - Provider Date of Admission: 07/31/17 17:52 Attending physician: Cedrick Valentin MD Consults: ID: Neil Cardio: Cancino Time Spent in preparation of Discharge (in minutes): 45 Diagnosis - Discharge Diagnosis (1) Pulmonary hypertension Status: Acute (2) Pneumonia Status: Acute (3) Mitral stenosis and incompetence Status: Acute (4) Hypercapnia Status: Acute (5) Respiratory failure Status: Acute Hospital Course - Lab Results Lab Results: Micro Results 07/31/17 22:20 Naris MRSA Culture (Admit) - Final MRSA NOT DETECTED Most Recent Lab Values WBC 16.4 10^3/ul (4.5-11.0) H 08/05/17 05:30 RBC 5.00 10^6/uL (3.5-6.1) 08/05/17 05:30 Hgb 14.6 g/dL (12.0-16.0) 08/05/17 05:30 Hct 44.4 % (36.0-48.0) 08/05/17 05:30 MCV 88.8 fl (80.0-105.0) 08/05/17 05:30 MCH 29.2 pg (25.0-35.0) 08/05/17 05:30 MCHC 32.9 g/dl (31.0-37.0) 08/05/17 05:30 RDW 13.6 % (11.5-14.5) 08/05/17 05:30 Plt Count 310 10^3/uL (120.0-450.0) 08/05/17 05:30 MPV 10.8 fl (7.0-11.0) 08/05/17 05:30 Gran % 74.4 % (50.0-68.0) H 08/05/17 05:30 Lymph % (Auto) 17.2 % (22.0-35.0) L 08/05/17 05:30 [place] % (Auto) 7.8 % (1.0-6.0) H 08/05/17 05:30 Eos % (Auto) 0.5 % (1.5-5.0) L 08/05/17 05:30 Baso % (Auto) 0.1 % (0.0-3.0) 08/05/17 05:30 Gran # 12.25 (1.4-6.5) H 08/05/17 05:30 Lymph # (Auto) 2.8 (1.2-3.4) 08/05/17 05:30 [place] # (Auto) 1.3 (0.1-0.6) H 08/05/17 05:30 Eos # (Auto) 0.1 (0.0-0.7) 08/05/17 05:30 Baso # (Auto) 0.01 K/mm3 (0.0-2.0) 08/05/17 05:30 Neutrophils % (Manual) 93 % (50.0-70.0) H 08/01/17 05:45 Lymphocytes % (Manual) 5 % (22.0-35.0) L 08/01/17 05:45 Monocytes % (Manual) 2 % (1.0-6.0) 08/01/17 05:45 Platelet Evaluation Normal (NORMAL) 08/01/17 05:45 Anisocytosis (manual) Slight 08/01/17 05:45 pCO2 38 mm/Hg (35-45) 08/01/17 05:45 pO2 99.0 mm/Hg (80-100) 08/01/17 05:45 HCO3 24.6 mmol/L (21-28) 08/01/17 05:45 ABG pH 7.42 (7.35-7.45) 08/01/17 05:45 ABG Total CO2 25.8 mmol.L (22-28) 08/01/17 05:45 ABG O2 Saturation 99.6 % (95-98) H 08/01/17 05:45 ABG O2 Content 16.7 ML/dl (15-23) 08/01/17 05:45 ABG Base Excess 0.3 mmol/L (-2.0-3.0) 08/01/17 05:45 ABG Hemoglobin 12.3 g/dL (11.7-17.4) 08/01/17 05:45 ABG Carboxyhemoglobin 2.2 % (0.5-1.5) H 08/01/17 05:45 POC ABG HHb (Measured) 0.4 % (0-5) 08/01/17 05:45 ABG Methemoglobin 1.5 % (0.0-3.0) 08/01/17 05:45 ABG O2 Capacity 16.8 mL/dl (16-24) 08/01/17 05:45 Hgb O2 Saturation 95.8 % (95.0-98.0) 08/01/17 05:45 FiO2 40.0 % 08/01/17 05:45 Sodium 139 mmol/L (132-148) 08/05/17 05:30 Potassium 3.6 mmol/L (3.6-5.0) 08/05/17 05:30 Chloride 94 mmol/L (98-107) L 08/05/17 05:30 Carbon Dioxide 36 mmol/L (21-33) H 08/05/17 05:30 Anion Gap 12 (10-20) 08/05/17 05:30 BUN 25 mg/dL (7-21) H 08/05/17 05:30 Creatinine 0.7 mg/dl (0.7-1.2) 08/05/17 05:30 Est GFR ( Amer) > 60 08/05/17 05:30 Est GFR (Non-Af Amer) > 60 08/05/17 05:30 POC Glucose (mg/dL) 118 mg/dL (65-110) H 08/05/17 11:14 Random Glucose 137 mg/dL (70-110) H 08/05/17 05:30 Hemoglobin A1c 5.6 % (4.2-6.5) 08/05/17 05:30 Calcium 10.2 mg/dL (8.4-10.5) 08/05/17 05:30 Phosphorus 3.3 mg/dL (2.5-4.5) 08/03/17 05:00 Magnesium 2.2 mg/dL (1.7-2.2) 08/03/17 05:00 Total Bilirubin 0.7 mg/dL (0.2-1.3) 08/05/17 05:30 AST 29 U/L (14-36) 08/05/17 05:30 ALT 53 U/L (7-56) 08/05/17 05:30 Alkaline Phosphatase 75 U/L (38-126) 08/05/17 05:30 Total Creatine Kinase 110 U/L (35-230) 07/31/17 16:00 Troponin I < 0.01 ng/mL 07/31/17 16:00 NT-Pro-B Natriuret Pep 416 pg/mL (0-450) 07/31/17 16:00 Total Protein 7.8 g/dL (5.8-8.3) 08/05/17 05:30 Albumin 4.4 g/dL (3.0-4.8) 08/05/17 05:30 Globulin 3.4 gm/dL 08/05/17 05:30 Albumin/Globulin Ratio 1.3 (1.1-1.8) 08/05/17 05:30 Procalcitonin < 0.05 NG/ML (0.19-0.49) L 07/31/17 16:00 Urine Color Yellow (YELLOW) 07/31/17 16:43 Urine Appearance Sl cloudy (CLEAR) 07/31/17 16:43 Urine pH 5.5 (4.7-8.0) 07/31/17 16:43 Ur Specific [place] >= 1.030 (1.005-1.035) 07/31/17 16:43 Urine Protein 30 mg/dL (<30 mg/dL) H 07/31/17 16:43 Urine Glucose (UA) Negative mg/dL (NEGATIVE) 07/31/17 16:43 Urine Ketones Negative mg/dL (NEGATIVE) 07/31/17 16:43 Urine Blood Large (NEGATIVE) H 07/31/17 16:43 Urine Nitrate Negative (NEGATIVE) 07/31/17 16:43 Urine Bilirubin Negative (NEGATIVE) 07/31/17 16:43 Urine Urobilinogen 0.2 E.U./dL (<1 E.U./dL) 07/31/17 16:43 Ur Leukocyte Esterase Negative Germán/uL (NEGATIVE) 07/31/17 16:43 Urine RBC Tntc /hpf (0-2) 07/31/17 16:43 Urine WBC 15 - 20 /hpf (0-6) 07/31/17 16:43 Ur Epithelial Cells Many /hpf (0-5) 07/31/17 16:43 Amorphous Sediment Few 07/31/17 16:43 Urine Bacteria Mod (NEG) 07/31/17 16:43 Urine HCG, Qual Negative (NEGATIVE) 07/31/17 16:43 Urine Opiates Screen Negative (NEGATIVE) 08/04/17 21:20 Urine Methadone Screen Negative (NEGATIVE) 08/04/17 21:20 Ur Barbiturates Screen Negative (NEGATIVE) 08/04/17 21:20 Ur Phencyclidine Scrn Negative (NEGATIVE) 08/04/17 21:20 Ur Amphetamines Screen Negative (NEGATIVE) 08/04/17 21:20 U Benzodiazepines Scrn Negative (NEGATIVE) 08/04/17 21:20 U Oth Cocaine Metabols Negative (NEGATIVE) 08/04/17 21:20 U Cannabinoids Screen Negative (NEGATIVE) 08/04/17 21:20 Influenza Typ A,B (EIA) Negative for flu a/b (NEGATIVE) 07/31/17 18:48 - Hospital Course Hospital Course: 52 year old female with a past medical history significant for asthma and DM2 who initially presented by EMS with hypoxic and hypercapneic respiratory failure secondary to asthma exacerbation and/or CAP. Patient was initially intubated and admitted to the ICU. Patient was started on empiric treatment for CAP and asthma exacerbation. Patient was extubated the following day and has progressively improved symptomatically since then. Patient also had echocardiogram which was significant for severe mitral stenosis and regurgitation, tricuspid regurgitation, and pulmonary hypertension, which preserved ejection fraction. Patient was started on IV diuretics, then switched to PO. Per cardiology, patient will require further workup and management of valvular dysfunction, including possible cardiac catheterization, Today, patient feels well overall, with significant improvement in her cough and shortness of breath. She denies fever, chills, nausea, vomiting, diarrhea, constipation. Patient was given prescriptions to complete course of antibiotics , and for continued diuresis for symptomatic control of valvular dysfunction. She was also given contact information and follow up instructions. All questions were answered to her satisfaction, and she was discharged to home. Discharge Exam - Head Exam Head Exam: ATRAUMATIC, NORMOCEPHALIC Additional comments: See prior progress note earlier today for exam findings Discharge Plan - Discharge Medications Prescriptions: Amoxicillin/Clavulanate [Augmentin 500 MG-125 MG Tab] 1 tab PO Q8 #16 tab Azithromycin [Zithromax] 500 mg PO DAILY 4 Days #8 tab Torsemide [Demadex] 10 mg PO DAILY 30 Days #60 tab - Follow Up Plan Condition: CRITICAL Disposition: HOME/ ROUTINE Instructions: Respiratory Distress Syndrome, Adult (DC) Additional Instructions: 1. Continue to take antibiotics as prescribed for 4 more days, even if you feel better 2. Continue to take torsemide 10mg, once daily. Follow up with counseling case manager within 3-5 days to discuss manager long term care medications and further workup 3. Follow up with a primary care doctor of your choice, or at the [facility] within 7 days 4. Return to the ER for any new or worsening concerns Referrals: [facility] [Provider Group] Benjy Cancino MD [Staff Provider] - <David Hollis - Last Filed: 08/06/17 08:27> Provider - Provider Date of Admission: 07/31/17 17:52 Attending physician: Cedrick Valentin MD Hospital Course - Lab Results Lab Results: Micro Results 07/31/17 22:20 Naris MRSA Culture (Admit) - Final MRSA NOT DETECTED Most Recent Lab Values WBC 16.4 10^3/ul (4.5-11.0) H 08/05/17 05:30 RBC 5.00 10^6/uL (3.5-6.1) 08/05/17 05:30 Hgb 14.6 g/dL (12.0-16.0) 08/05/17 05:30 Hct 44.4 % (36.0-48.0) 08/05/17 05:30 MCV 88.8 fl (80.0-105.0) 08/05/17 05:30 MCH 29.2 pg (25.0-35.0) 08/05/17 05:30 MCHC 32.9 g/dl (31.0-37.0) 08/05/17 05:30 RDW 13.6 % (11.5-14.5) 08/05/17 05:30 Plt Count 310 10^3/uL (120.0-450.0) 08/05/17 05:30 MPV 10.8 fl (7.0-11.0) 08/05/17 05:30 Gran % 74.4 % (50.0-68.0) H 08/05/17 05:30 Lymph % (Auto) 17.2 % (22.0-35.0) L 08/05/17 05:30 [place] % (Auto) 7.8 % (1.0-6.0) H 08/05/17 05:30 Eos % (Auto) 0.5 % (1.5-5.0) L 08/05/17 05:30 Baso % (Auto) 0.1 % (0.0-3.0) 08/05/17 05:30 Gran # 12.25 (1.4-6.5) H 08/05/17 05:30 Lymph # (Auto) 2.8 (1.2-3.4) 08/05/17 05:30 [place] # (Auto) 1.3 (0.1-0.6) H 08/05/17 05:30 Eos # (Auto) 0.1 (0.0-0.7) 08/05/17 05:30 Baso # (Auto) 0.01 K/mm3 (0.0-2.0) 08/05/17 05:30 Neutrophils % (Manual) 93 % (50.0-70.0) H 08/01/17 05:45 Lymphocytes % (Manual) 5 % (22.0-35.0) L 08/01/17 05:45 Monocytes % (Manual) 2 % (1.0-6.0) 08/01/17 05:45 Platelet Evaluation Normal (NORMAL) 08/01/17 05:45 Anisocytosis (manual) Slight 08/01/17 05:45 pCO2 38 mm/Hg (35-45) 08/01/17 05:45 pO2 99.0 mm/Hg (80-100) 08/01/17 05:45 HCO3 24.6 mmol/L (21-28) 08/01/17 05:45 ABG pH 7.42 (7.35-7.45) 08/01/17 05:45 ABG Total CO2 25.8 mmol.L (22-28) 08/01/17 05:45 ABG O2 Saturation 99.6 % (95-98) H 08/01/17 05:45 ABG O2 Content 16.7 ML/dl (15-23) 08/01/17 05:45 ABG Base Excess 0.3 mmol/L (-2.0-3.0) 08/01/17 05:45 ABG Hemoglobin 12.3 g/dL (11.7-17.4) 08/01/17 05:45 ABG Carboxyhemoglobin 2.2 % (0.5-1.5) H 08/01/17 05:45 POC ABG HHb (Measured) 0.4 % (0-5) 08/01/17 05:45 ABG Methemoglobin 1.5 % (0.0-3.0) 08/01/17 05:45 ABG O2 Capacity 16.8 mL/dl (16-24) 08/01/17 05:45 Hgb O2 Saturation 95.8 % (95.0-98.0) 08/01/17 05:45 FiO2 40.0 % 08/01/17 05:45 Sodium 139 mmol/L (132-148) 08/05/17 05:30 Potassium 3.6 mmol/L (3.6-5.0) 08/05/17 05:30 Chloride 94 mmol/L (98-107) L 08/05/17 05:30 Carbon Dioxide 36 mmol/L (21-33) H 08/05/17 05:30 Anion Gap 12 (10-20) 08/05/17 05:30 BUN 25 mg/dL (7-21) H 08/05/17 05:30 Creatinine 0.7 mg/dl (0.7-1.2) 08/05/17 05:30 Est GFR ( Amer) > 60 08/05/17 05:30 Est GFR (Non-Af Amer) > 60 08/05/17 05:30 POC Glucose (mg/dL) 118 mg/dL (65-110) H 08/05/17 11:14 Random Glucose 137 mg/dL (70-110) H 08/05/17 05:30 Hemoglobin A1c 5.6 % (4.2-6.5) 08/05/17 05:30 Calcium 10.2 mg/dL (8.4-10.5) 08/05/17 05:30 Phosphorus 3.3 mg/dL (2.5-4.5) 08/03/17 05:00 Magnesium 2.2 mg/dL (1.7-2.2) 08/03/17 05:00 Total Bilirubin 0.7 mg/dL (0.2-1.3) 08/05/17 05:30 AST 29 U/L (14-36) 08/05/17 05:30 ALT 53 U/L (7-56) 08/05/17 05:30 Alkaline Phosphatase 75 U/L (38-126) 08/05/17 05:30 Total Creatine Kinase 110 U/L (35-230) 07/31/17 16:00 Troponin I < 0.01 ng/mL 07/31/17 16:00 NT-Pro-B Natriuret Pep 416 pg/mL (0-450) 07/31/17 16:00 Total Protein 7.8 g/dL (5.8-8.3) 08/05/17 05:30 Albumin 4.4 g/dL (3.0-4.8) 08/05/17 05:30 Globulin 3.4 gm/dL 08/05/17 05:30 Albumin/Globulin Ratio 1.3 (1.1-1.8) 08/05/17 05:30 Procalcitonin < 0.05 NG/ML (0.19-0.49) L 07/31/17 16:00 Urine Color Yellow (YELLOW) 07/31/17 16:43 Urine Appearance Sl cloudy (CLEAR) 07/31/17 16:43 Urine pH 5.5 (4.7-8.0) 07/31/17 16:43 Ur Specific [place] >= 1.030 (1.005-1.035) 07/31/17 16:43 Urine Protein 30 mg/dL (<30 mg/dL) H 07/31/17 16:43 Urine Glucose (UA) Negative mg/dL (NEGATIVE) 07/31/17 16:43 Urine Ketones Negative mg/dL (NEGATIVE) 07/31/17 16:43 Urine Blood Large (NEGATIVE) H 07/31/17 16:43 Urine Nitrate Negative (NEGATIVE) 07/31/17 16:43 Urine Bilirubin Negative (NEGATIVE) 07/31/17 16:43 Urine Urobilinogen 0.2 E.U./dL (<1 E.U./dL) 07/31/17 16:43 Ur Leukocyte Esterase Negative Germán/uL (NEGATIVE) 07/31/17 16:43 Urine RBC Tntc /hpf (0-2) 07/31/17 16:43 Urine WBC 15 - 20 /hpf (0-6) 07/31/17 16:43 Ur Epithelial Cells Many /hpf (0-5) 07/31/17 16:43 Amorphous Sediment Few 07/31/17 16:43 Urine Bacteria Mod (NEG) 07/31/17 16:43 Urine HCG, Qual Negative (NEGATIVE) 07/31/17 16:43 Urine Opiates Screen Negative (NEGATIVE) 08/04/17 21:20 Urine Methadone Screen Negative (NEGATIVE) 08/04/17 21:20 Ur Barbiturates Screen Negative (NEGATIVE) 08/04/17 21:20 Ur Phencyclidine Scrn Negative (NEGATIVE) 08/04/17 21:20 Ur Amphetamines Screen Negative (NEGATIVE) 08/04/17 21:20 U Benzodiazepines Scrn Negative (NEGATIVE) 08/04/17 21:20 U Oth Cocaine Metabols Negative (NEGATIVE) 08/04/17 21:20 U Cannabinoids Screen Negative (NEGATIVE) 08/04/17 21:20 Influenza Typ A,B (EIA) Negative for flu a/b (NEGATIVE) 07/31/17 18:48 Attending/Attestation - Attestation I have personally seen and examined this patient.: Yes I have fully participated in the care of the patient.: Yes I have reviewed all pertinent clinical information, including history, physical exam and plan: Yes Notes (Text): 52 year old female with a past medical history significant for asthma and DM2 who initially presented by EMS with hypoxic and hypercapneic respiratory failure secondary to asthma exacerbation and/or CAP. Patient was initially intubated and admitted to the ICU. Patient was started on empiric treatment for CAP and asthma exacerbation. Patient was extubated the following day and has progressively improved symptomatically since then. Patient also had echocardiogram which was significant for severe mitral stenosis and regurgitation, tricuspid regurgitation, and pulmonary hypertension, which preserved ejection fraction. Patient was started on IV diuretics, then switched to PO. Per cardiology, patient will require further workup and management of valvular dysfunction, including possible cardiac catheterization, she was given number of Cardiology and our [facility] center incase she is unable to follow up in [facility] as she would like to. She is apparently visiting from [place], visiting her grandmother who lives in [place].
== END 2017-08-05 19:11 | disposition home or self-care (01) | DRG 208 ==
LOC: ED 15:48 → ERH 17:52 → CCU 22:15 → 2RNO 08-03 18:15
PROVIDERS: ADMIT Internal Medicine; ATTEND Hospitalist
PROC: 0BH17EZ Insertion of Endotracheal Airway into Trachea, Via Natural or Artificial Opening (ICD-10-PCS; principal; 2017-07-31)
PROC: 5A1935Z Respiratory Ventilation, Less than 24 Consecutive Hours (ICD-10-PCS; 2017-07-31)
DX: J45.901 Unspecified asthma with (acute) exacerbation (principal); J96.01 Acute respiratory failure with hypoxia; J18.9 Pneumonia, unspecified organism; J81.1 Chronic pulmonary edema; J96.02 Acute respiratory failure with hypercapnia; J44.0 Chronic obstructive pulmonary disease with (acute) lower respiratory infection; I95.9 Hypotension, unspecified; I27.20 Pulmonary hypertension, unspecified; I05.2 Rheumatic mitral stenosis with insufficiency; I08.1 Rheumatic disorders of both mitral and tricuspid valves; E11.9 Type 2 diabetes mellitus without complications; E87.6 Hypokalemia; F17.200 Nicotine dependence, unspecified, uncomplicated; T38.0X5A Adverse effect of glucocorticoids and synthetic analogues, initial encounter; I45.4 Nonspecific intraventricular block; R40.2412 Glasgow coma scale score 13-15, at arrival to emergency department

== ENCOUNTER 2017-09-07 19:16 | Inpatient (IN) | payer MEDICAID ==
[2017-09-07 19:16] VITALS: BMI 30.9
[2017-09-07] MEDS ORDERED: Albuterol-Ipratrop 3 mg / 0.5 (3 ml) UD ONE (19:23)
[2017-09-07] MEDS: Albuterol-Ipratrop 3 mg / 0.5 (3 ml) UD IH SCH ×4 (19:30→22:57)
[2017-09-07] MEDS ORDERED: Magnesium Sulfate 1 gm in D5W 1 GM/100 ML BAG IVPB ONE (19:40)
[2017-09-07 19:49] LABS: VENOUS BLOOD GAS BASE EXCESS -11.2 mmol/L (0.0-2.0); VENOUS BLOOD GAS PO2 165 mm/Hg (30-55)
[2017-09-07 19:52] LABS: BASO # 0.04 K/mm3 (0.0-2.0); BASO % 0.2 % (0.0-3.0); EOS # 0.4 (0.0-0.7); EOS % 2.2 % (1.5-5.0); GRAN # 10.84 (1.4-6.5); GRAN % 61.8 % (50.0-68.0); HEMOGLOBIN 13.4 g/dL (12.0-16.0); LYMPH # 5.4 (1.2-3.4); LYMPH % 30.7 % (22.0-35.0); MEAN CELL VOLUME 89.3 fl (80.0-105.0); MEAN CORPUSCULAR HEMOGLOBIN 29.2 pg (25.0-35.0); MEAN CORPUSCULAR HGB CONC 32.7 g/dl (31.0-37.0); MEAN PLATELET VOLUME 10.9 fl (7.0-11.0); MONO # 0.9 (0.1-0.6); MONO % 5.1 % (1.0-6.0); RBC 4.59 10^6/uL (3.5-6.1); RED CELL DISTRIBUTION WIDTH 13.9 % (11.5-14.5); WHITE BLOOD COUNT 17.5 10^3/ul (4.5-11.0)
[2017-09-07 19:58] LABS: VENOUS BLOOD PH 7.16 (7.32-7.43)
[2017-09-07 20:00] LABS: ALB/GLOB RATIO 1.4 (1.1-1.8); ALBUMIN 4.5 g/dL (3.0-4.8); ALT/SGPT 42 U/L (7-56); AST/SGOT 55 U/L (14-36); BLOOD UREA NITROGEN 18 mg/dL (7-21); CALCIUM 9.2 mg/dL (8.4-10.5); GFR AFRICAN-AMERICAN > 60; GFR NON-AFRICAN AMERICAN > 60
[2017-09-07 20:05] LABS: INR 1.02 (0.93-1.08); PROTHROMBIN TIME 11.6 SECONDS (9.4-12.5)
[2017-09-07 20:12] LABS: B-TYPE NATRIURETIC PEPTIDE 439 pg/mL (0-450); TROPONIN I < 0.01 ng/mL
--- NOTE | 2017-09-07 20:19 | ED PDOC ---
Arrival/HPI - General Chief Complaint: Shortness Of Breath Time Seen by Provider: 09/07/17 19:21 Historian: Patient, EMS - History of Present Illness Narrative History of Present Illness (Text): 09/07/17 19:20 A 52 year old female was brought in by EMS to the emergency department complaining of severe shortness of breath. Patient states she has shortness of breath in general, however since 18:30 today, severe/worsening shortness of breath, additionally patient is unable to speak. EMS was contacted on her behalf. pt was subsequently brought to ED for further eval/exam; Patient reports similar presentation last month when pt arrived to ED with extreme difficulty breathing. pt was admitted and during her course of hospitalization, pt was also intubated at that time. Patient reports she felt chest tightness and warmth today, but denies any fever, chills, diaphoresis, nausea, vomiting, abdominal pain, urinary or bowel changes. Patient doesn't know about stress factors that triggers her difficulty breathing. Patient is here in [place] taking care of her mother. Patient has no PMD in [place], patient is from [place]. Patient presents to the emergency department for further evaluation. EMS arrived with abnormal EKG, and no other medications/ treatment was provided. PCP: ADOLFO Time/Duration: Prior to Arrival Symptom Onset: Sudden Symptom Course: Unchanged, Worsening Quality: Pressure, Tightness, Cramping Severity Level: Severe Activities at Onset: Rest Context: Home Past Medical History - Provider Review Nursing Documentation Reviewed: Yes - Travel History Have you recently traveled outside [place] w/in the past 3 mons?: No - Past History Past History: No Previous - Reproductive Currently : No - Pulmonary Hx Respiratory Disorders: Yes Hx Asthma: Yes - Musculoskeletal/Rheumatological Hx Falls: Yes - Psychiatric Hx Psychophysiologic Disorder: Yes (H/O HEROINE/ILLICIT SUBSTANCE USE.WAS ON A PROGRAM BEFORE PER FRIEND.) Hx Substance Use: Yes (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 absent: Fevers, Other (chills) Eyes: Normal ENT: Normal Respiratory: SOB Cardiovascular: Chest Pain, Other (chest tightness) Gastrointestinal: absent: Abdominal Pain, Stool Changes, Nausea, Vomiting Genitourinary Female: Normal. absent: Urine Output Changes Musculoskeletal: Normal Skin: Normal Neurological: Other (lightheadedness/weakness) Endocrine: absent: Diaphoresis Hemo/Lymphatic: Normal Psychiatric: Normal Physical Exam Vital Signs Reviewed: Yes Vital Signs Temp Pulse Resp BP Pulse Ox 09/07/17 21:05 121/66 09/07/17 20:54 110 H 22 121/66 100 09/07/17 20:35 98.5 F 114 H 20 114/60 100 Temperature: Afebrile Blood Pressure: Normal Pulse: Tachycardic Respiratory Rate: Tachypneic Appearance: Positive for: Well-Appearing, Uncomfortable, Other (alert/awake, GCS = 15, oriented x 3, cooperative, severe distress due to poor respiration, uncomfortable, resting in bed) Pain Distress: None Mental Status: Positive for: Alert and Oriented X 3 - Systems Exam Head: Present: Atraumatic, Normocephalic Pupils: Present: PERRL, Other (no nystagmus, no photophobia, sclera anicteric) Extroacular Muscles: Present: EOMI Conjunctiva: Present: Normal Ears: Present: Normal Mouth: Present: Moist Mucous Membranes, Other (fair dentitions, no drooling/ stridor/exudates, no dysphonia, uvula/tongue are midline) Pharnyx: Present: Normal Nose (External): Present: Atraumatic Nose (Internal): Present: Normal Inspection Neck: Present: Normal Range of Motion, Trachea Midline, Other (no step off). No : Meningeal Signs, MIDLINE TENDERNESS Respiratory/Chest: Present: Respiratory Distress (severe; uncomfortable; spoke in 1-2 words/sentences), Accessory Muscle Use, Wheezes (faint wheezing bibasilarly), Decreased Breath Sounds (b/l ), Tachypneic. No: Tender to Palpation Cardiovascular: Present: Murmurs, Normal S1, S2, Other (+ tachycardia, regular rhythm) Abdomen: Present: Normal Bowel Sounds, Other (well nourished/obese female, no focal tenderness, no masses/rebound/guarding/rigidity, no moore's sign, no mcburney's point tenderness). No: Tenderness, Distention, Peritoneal Signs Back: Present: Normal Inspection, Other (no midline tenderness). No: CVA Tenderness, Midline Tenderness Upper Extremity: Present: Normal Inspection, Normal ROM, NORMAL PULSES, Neurovascularly Intact, Capillary Refill < 2s. No: Cyanosis, Edema Lower Extremity: Present: Normal Inspection, Edema (faint b/l lower ext +1/5 pitting edema up to mid-tib/fib; no rosmery's sign b/l, strength 5/5 grossly intact in all limbs, neurovasc intact b/l ), NORMAL PULSES Neurological: Present: GCS=15, CN II-XII Intact, Speech Normal Skin: Present: Warm, Dry, Normal Color, Other (cap refill < 1sec, no ulcerations , no petechiae, no rashes noted). No: Rashes Psychiatric: Present: Alert, Oriented x 3, Normal Insight, Normal Concentration Medical Decision Making ED Course and Treatment: 09/07/17 19:20 Impression: A 52 year old female with shortness of breath. Statement: I have considered all of the differential diagnostics regarding patient's chief medical complaints/ clinical findings, including but not limited to: severe bronchospasm; r/o acs; r/o infection? Assessment for A/ P -- EKG -- Chest X-ray -- labs -- Urinalysis -- Duoneb, Solumedrol, Ecotrin, mg-sulfate given pt's severe sob, recommend immediate placement on BiPAP for airway control 09/07/17 19:50 Spoke with ICU burner tender Dr. Smith, made aware and agrees with patient admission, and will evaluate patient in emergency department. 09/07/17 19:53 Spoke with medical technologist generalist, who was made aware, will come to emergency department and evaluate patient. 09/07/17 20:19 vice president network is at bedside, agrees with admission 09/07/17 21:33 after > 1 hour placement of Bipap, pt appears much more relieved, pt is not tachypenic currently; pt is comfortable pt is able to speak in full sentences vital signs stabilizing lung re-exam: more aeration is noted, no wheezing noted bibasiliar, no tachypenia is noted pt is made aware of her medical results agrees with admission Re-evaluation Time: 21:30 Reassessment Condition: Improved - Critical Care Critical Care Minutes: 60 minutes Critical Care Time: Excluding Proc Time Narrative Critical Care (Text): 09/07/17 22:22 critical care time: 60min, excluding procedure time, excluding time teaching residents/students/mid-level providers; including initial eval/diagnosis, diagnostic interpretation, re-eval, consultations, final disposition - Lab Interpretations Lab Results: 09/07/17 19:20 09/07/17 19:20 Lab Results 09/07/17 20:25: pCO2 46 H, pO2 156.0 H, HCO3 25.4, ABG pH 7.35, ABG Total CO2 26.8, ABG O2 Saturation 100.0 H, ABG O2 Content 18.2, ABG Base Excess -0.6, ABG Hemoglobin 13.3, ABG Carboxyhemoglobin 2.9 H, POC ABG HHb (Measured) 0, ABG Methemoglobin 1.1, ABG O2 Capacity 18.2, Hgb O2 Saturation 96.0, FiO2 21.0 09/07/17 19:20: Sodium 141, Chloride 104, Potassium 3.8, Carbon Dioxide 18 L, Anion Gap 22 H, BUN 18, Creatinine 0.9, Est GFR ( Amer) > 60, Est GFR ( Non-Af Amer) > 60, Random Glucose 261 H, Calcium 9.2, Total Bilirubin 0.6, AST 55 H D, ALT 42, Alkaline Phosphatase 80, Lactate Dehydrogenase 704 H, Total Creatine Kinase 179, Troponin I < 0.01, NT-Pro-B Natriuret Pep 439, Total Protein 7.7, Albumin 4.5, Globulin 3.2, Albumin/Globulin Ratio 1.4 09/07/17 19:20: pO2 165 H, VBG pH 7.16 L*, VBG pCO2 49.0, VBG HCO3 17.5 L, VBG Total CO2 19.0 L, VBG O2 Sat (Calc) 100.2 H, VBG Base Excess -11.2 L, VBG Potassium 3.7, Sodium 140.0, Chloride 103.0, Glucose 284 H, Lactate 8.6 H*, FiO2 21.0, Venous Blood Potassium 3.7 09/07/17 19:20: PT 11.6, INR 1.02, APTT 30.0 09/07/17 19:20: WBC 17.5 H, RBC 4.59, Hgb 13.4, Hct 41.0, MCV 89.3, MCH 29.2, MCHC 32.7, RDW 13.9, Plt Count 420, MPV 10.9, Gran % 61.8, Lymph % (Auto) 30.7, [place] % (Auto) 5.1, Eos % (Auto) 2.2, Baso % (Auto) 0.2, Gran # 10.84 H, Lymph # (Auto) 5.4 H, [place] # (Auto) 0.9 H, Eos # (Auto) 0.4, Baso # (Auto) 0.04 I have reviewed the lab results: Yes Interpretation: Abnormal lab values (elevated wbc, elevated lactate, improved abg) - RAD Interpretation Narrative RAD Interpretations (Text): 09/07/17 22:24 chest xray - cardiomeagly pulm vascular congestions noted worse than previous chest xray Radiology Orders: 09/07/17 19:26 CHEST PORTABLE [RAD] Stat Director Of Critical Care: ED Physician - EKG Interpretation EKG Interpretation (Text): 09/07/17 20:20 EKG: Ordered, reviewed, and independently interpreted the EKG. Rate : 133 BPM Rhythm : sinus tachycardia Interpretation : normal axis with positive ectopy, left bundle branch block, nonspecific ST changes, poor baseline, abnormal EKG Comparison : unchanged from EKG on 08/11 Interpreted by ED Physician: Yes Type: 12 lead EKG Comparison: Similar to previous EKG - Medication Orders Current Medication Orders: Albuterol/Ipratropium (Duoneb 3 Mg/0.5 Mg (3 Ml) Ud) 3 ml IH [id number] JUAN ALBERTO Stop: 09/08/17 07:30 Albuterol/Ipratropium (Duoneb 3 Mg/0.5 Mg (3 Ml) Ud) 3 ml IH Q2H PRN PRN Reason: Shortness of Breath Vancomycin HCl (Vancomycin 1gm) 1 gm in 250 mls @ 167 mls/hr IVPB Q12H JUAN ALBERTO PRN Reason: Protocol Azithromycin (Zithromax 500mg In Ns) 500 mg in 250 mls @ 167 mls/hr IVPB STAT STA PRN Reason: Protocol Stop: 09/07/17 23:08 Azithromycin 250 mg/ Sodium (Chloride) 250 mls @ 167 mls/hr IVPB DAILY JUAN ALBERTO PRN Reason: Protocol Stop: 09/13/17 10:01 Piperacillin Sod/Tazobactam Sod (Zosyn 4.5 Gm In Ns 100ml) 4.5 gm in 100 mls @ 200 mls/hr IVPB Q6 JUAN ALBERTO PRN Reason: Protocol Stop: 09/08/17 06:29 Methylprednisolone (Solu-Medrol) 20 mg IVP Q12 JUAN ALBERTO Ondansetron HCl (Zofran Inj) 4 mg IVP Q6H PRN PRN Reason: Nausea/Vomiting Discontinued Medications Albuterol/Ipratropium (Duoneb 3 Mg/0.5 Mg (3 Ml) Ud) 3 ml IH Q15M JUAN ALBERTO Stop: 09/07/17 20:01 Last Admin: 09/07/17 20:00 Dose: 3 ml Aspirin (Ecotrin) 81 mg PO STAT STA Stop: 09/07/17 19:26 Last Admin: 09/07/17 19:30 Dose: 81 mg Enoxaparin Sodium (Lovenox) 40 mg SC STAT STA PRN Reason: Protocol Stop: 09/07/17 21:43 Furosemide (Lasix) 40 mg IVP STAT STA Stop: 09/07/17 20:13 Last Admin: 09/07/17 21:05 Dose: 40 mg MAR Blood Pressure Document 09/07/17 21:05 AD (Rec: 09/07/17 21:05 AD [id number]) Blood Pressure Blood Pressure (100/60-150/90) 121/66 IVP Administration Document 09/07/17 21:05 AD (Rec: 09/07/17 21:05 AD [id number]) Charges for Administration # of IVP Administrations 1 Magnesium Sulfate/Dextrose (Magnesium Sulfate 1 Gm/100 Ml D5w) 1 gm in 100 mls @ 100 mls/hr IVPB ONCE ONE Stop: 09/07/17 20:39 Last Admin: 09/07/17 19:50 Dose: 100 mls/hr eMAR Start Stop Document 09/07/17 19:50 AD (Rec: 09/07/17 20:07 AD [id number]) Intravenous Solution Start Date 09/07/17 Start Time 19:50 Methylprednisolone (Solu-Medrol) 125 mg IVP STAT STA Stop: 09/07/17 19:31 Last Admin: 09/07/17 19:30 Dose: 125 mg IVP Administration Document 09/07/17 19:30 AD (Rec: 09/07/17 20:07 AD [id number]) Charges for Administration # of IVP Administrations 1 - Scribe Statement The provider has reviewed the documentation as recorded by the Naomi Hooper Provider Scribe Attestation: All medical record entries made by the Himanshuibaracelis were at my direction and personally dictated by me. I have reviewed the chart and agree that the record accurately reflects my personal performance of the history, physical exam, medical decision making, and the department course for this patient. I have also personally directed, reviewed, and agree with the discharge instructions and disposition. Disposition/Present on Arrival - Present on Arrival Any Indicators Present on Arrival: No History of DVT/PE: No History of Uncontrolled Diabetes: No Urinary Catheter: No History of Decub. Ulcer: No History Surgical Site Infection Following: None - Disposition Have Diagnosis and Disposition been Completed?: Yes Diagnosis: Acute respiratory distress, Bronchospasm, Mitral stenosis and incompetence, Nonadherence to medication Disposition: HOSPITALIZED Disposition Time: 21:45 Patient Plan: Admission, ICU Patient Problems: Current Active Problems Problem Status Onset Acute respiratory distress Acute Bronchospasm Acute Mitral stenosis and incompetence Acute Nonadherence to medication Acute Condition: FAIR
[2017-09-07 20:56] LABS: ARTERIAL BLOOD GAS HCO3 25.4 mmol/L (21-28); ARTERIAL BLOOD GAS HEMOGLOBIN 13.3 g/dL (11.7-17.4); ARTERIAL BLOOD GAS O2 CAPACITY 18.2 mL/dl (16-24); ARTERIAL BLOOD GAS O2 CONTENT 18.2 ML/dl (15-23); ARTERIAL BLOOD GAS PCO2 46 mm/Hg (35-45); ARTERIAL BLOOD GAS PH 7.35 (7.35-7.45); ARTERIAL BLOOD GAS TCO2 26.8 mmol.L (22-28)
[2017-09-07] MEDS ORDERED: Azithromycin 500MG/NS 250ml 500 MG/250 ML BAG IVPB STA (21:39)
[2017-09-07] MEDS ORDERED: Enoxaparin 40 mg Syringe SC STA (21:42)
[2017-09-07 23:22] LABS: URINE BILIRUBIN NEGATIVE (NEGATIVE); URINE BLOOD TRACE-INTACT (NEGATIVE); URINE GLUCOSE (UA) NEGATIVE (NEGATIVE); URINE LEUKOCYTE ESTERASE TRACE Leu/uL (NEGATIVE); URINE PROTEIN NEGATIVE mg/dL (<30 mg/dL); URINE UROBILINOGEN 0.2 E.U./dL (<1 E.U./dL)
[2017-09-07 23:37] LABS: URINE APPEARANCE CLEAR (CLEAR); URINE COLOR YELLOW (YELLOW)
[2017-09-07 23:45] LABS: BARBITURATES, UR NEGATIVE (NEGATIVE); BENZODIAZEPINES, UR NEGATIVE (NEGATIVE); OPIATES, UR NEGATIVE (NEGATIVE); PHENCYCLIDINE, UR NEGATIVE (NEGATIVE)
[2017-09-07 23:46] LABS: URINE EPITHELIAL CELLS 0 - 2 /hpf (0-5); URINE RBC 0 - 2 /hpf (0-2); URINE WBC 0 - 2 /hpf (0-6)
[2017-09-07] MEDS: MethylPREDNISolone 40 mg Vial IVP SCH (23:50)
--- NOTE | 2017-09-08 00:15 | CT ---
EXAM: CT Angiography Chest With Intravenous Contrast CLINICAL HISTORY: 52 years old, female; Signs and symptoms; Other: R/O pe; Additional info: Eval for pe TECHNIQUE: Axial computed tomographic angiography images of the chest with intravenous contrast using pulmonary embolism protocol. All CT scans at this facility use one or more dose reduction techniques, viz.: automated exposure control; ma/kV adjustment per patient size (including targeted exams where dose is matched to indication; i.e. head); or iterative reconstruction technique. MIP reconstructed images were created and reviewed. Coronal and sagittal reformatted images were created and reviewed. CONTRAST: 150 mL of OMNI 350 administered intravenously. COMPARISON: DX - CHEST PORTABLE 2017-09-07 19:59 FINDINGS: Limitations: Motion artifact - mild. Pulmonary arteries: No definite pulmonary embolism. Aorta: No aneurysm. No dissection. Lungs: Moderate to extensive diffuse groundglass opacities. No consolidation. Small cyst or bulla right lower lobe. Pleural space: No significant effusion. No pneumothorax. Heart: Mild cardiomegaly. No significant pericardial effusion. Bones/joints: Mild degenerative changes of spine. No acute fracture. Soft tissues: Unremarkable. Lymph nodes: No pathologically enlarged lymph nodes. IMPRESSION: 1. No definite CT evidence of pulmonary embolism. 2. Groundglass opacities, nonspecific. DDX: Pneumonia, pulmonary edema, interstitial lung disease, pneumonitis. Clinical correlation and follow up are recommended. 3. Incidental/non-acute findings are described above.
[2017-09-08] MEDS: Vancomycin 1gm in NS 250ml 1 GM/250 ML BAG IVPB SCH ×3 (01:00→21:40)
[2017-09-08] MEDS: Piperacill/Tazo 4.5gm in NS 4.5 GM/100 ML BAG IVPB SCH ×2 (01:00→05:17)
--- NOTE | 2017-09-08 01:00 | CP.PCM.HP ---
<Chacho Rodriguez - Last Filed: 09/08/17 01:04> History of Present Illness - History of Present Illness History of Present Illness: IM H&P for Hospitalist Service CC: shortness of breath This is a 52 yo F with PMH of asthma, recent intubation for hypercapnic hypoxic respiratory failure (07/31/17), prior tobacco abuse (quit 6 months ago, 1ppd > 20 yrs), and recently discovered valvular heart disease with pulmonary HTN who represents for shortness of breath. As per patient, she has had progressively worsening shortness of breath x1 week, with an acute worsening today that pt describes as "like getting hit by a brick." Pt admits nausea, but denies emesis , aspiration, sensation of choking, or inability to swallow/voluntarily clear throat. Shortness of breath worsened with exertion but still notably present at rest. Denies chest pain, productive cough, fevers, chills, nausea, emesis, diarrhea, dysuria, focal weakness, or acute swelling of extremities/abdomen. Of note, during last admission, echo was notable for pulm HTN with RSVP of 69, severe TR, and severe MR/MS. 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 She does report compliance with medication regimen, however; she completed her courses of Zithromax and Augmentin since discharge last month, and is still taking daily demadex, on which she produces good urine. All other ROS in 12- system review negative. In the ED, pt was started on Bipap, with concern of tachypnea of 30's-40's and accessory muscle use. After > 1 hr on Bipap, Duonebs x3, Mag Sulfate 1g x1, and Solumedrol 125mg x1, ABG was obtained, notable (pH now 7.35), pCO2 45, pO2 156, and HCO3 of 25.4. Accessory muscle use was lessened, and improved breath sounds were appreciated on exam. PMH: as above PSH: denies Soc Hx: reports former tobacco use (cigarrettes, > 20 yrs, quit 6 months prior) , denies illicits, IVDA, alcohol Fam Hx: denies any famillial hx of SOB PMD: None, supposed to follow up with a in [place] and to follow up after discharge, but never did Present on Admission - Present on Admission Any Indicators Present on Admission: No History of DVT/PE: No History of Uncontrolled Diabetes: No Urinary Catheter: No Review of Systems - Review of Systems All systems: reviewed and no additional remarkable complaints except (as per HPI ) Past Patient History - Past Social History Smoking Status: Former Smoker - PULMONARY Hx Respiratory Disorders: Yes Hx Asthma: Yes - MUSCULOSKELETAL/RHEUMATOLOGICAL Hx Falls: No - PSYCHIATRIC Hx Psychophysiologic Disorder: Yes (H/O HEROINE/ILLICIT SUBSTANCE USE.WAS ON A PROGRAM BEFORE PER FRIEND.) Hx Substance Use: Yes (3 YEARS AGO PER PATIENT) - SURGICAL HISTORY Hx Surgeries: No - ANESTHESIA Hx Anesthesia: No Hx Anesthesia Reactions: No Hx Malignant Hyperthermia: No Meds Allergies/Adverse Reactions: Allergies Allergy/AdvReac Type Severity Reaction Status Date / Time No Known Allergies Allergy Verified 08/02/17 08:01 Physical Exam - Constitutional Additional comments: No acutely toxic, but ill-appearing, fatigued, some signs of moderately caring for herself - Head Exam Head Exam: ATRAUMATIC, NORMAL INSPECTION, NORMOCEPHALIC - Eye Exam Eye Exam: EOMI, Normal appearance. absent: Conjunctival injection, Scleral icterus Pupil Exam: absent: Irregular, Unequal - ENT Exam ENT Exam: Mucous Membranes Moist. absent: Mucous Membranes Dry - Neck Exam Neck exam: Positive for: Normal Inspection. Negative for: Lymphadenopathy, Thyromegaly - Respiratory Exam Respiratory Exam: Accessory Muscle Use (improved thourgh), Decreased Breath Sounds (moderately-severely decreased breath sounds in all chavez, most decreased at bilateral bases), Wheezes (diffusely present, more prominent on end -exhalation but some inspiratory wheezing present as well.), Respiratory Distress. absent: Chest Wall Tenderness, Rales, Rhonchi, Stridor Additional comments: wearing Bipap, respiratory rate 20's-30s. Not grossly dyspnic with speech but having difficulty speaking 2/2 wearing BiPAP - Cardiovascular Exam Cardiovascular Exam: Tachycardia, REGULAR RHYTHM, +S1, +S2. absent: Bradycardia , Irregular Rhythm, JVD, RRR, +S4 - GI/Abdominal Exam GI & Abdominal Exam: Diminished Bowel Sounds, Soft. absent: Distended, Firm, Hyperactive Bowel Sounds, Hypoactive Bowel Sounds, Normal Bowel Sounds, Rigid, Tenderness - Extremities Exam Extremities exam: Positive for: pedal edema (trace pitting pedal edema bilaterally from foot to bottom 1/3rd of marie). Negative for: calf tenderness - Neurological Exam Neurological exam: Alert, Oriented x3 - Psychiatric Exam Psychiatric exam: Anxious, Normal Affect, Normal Mood - Skin Skin Exam: Dry, Intact, Normal Color, Warm Results - Vital Signs Recent Vital Signs: Last Vital Signs Temp 97.8 F 09/07/17 23:55 Pulse 110 H 09/08/17 00:00 Resp 23 09/07/17 23:55 BP 140/65 09/07/17 23:55 Pulse Ox 100 09/07/17 23:44 - Labs Result Diagrams: 09/07/17 19:20 09/07/17 19:20 Labs: Laboratory Results - last 24 hr 09/07/17 09/07/17 22:00 22:00 Urine Color Yellow Urine Appearance Clear Urine pH 6.0 Ur Specific Embudo 1.015 Urine Protein Negative Urine Glucose (UA) Negative Urine Ketones Negative Urine Blood Trace-intact H Urine Nitrate Negative Urine Bilirubin Negative Urine Urobilinogen 0.2 Ur Leukocyte Esterase Trace H Urine RBC 0 - 2 Urine WBC 0 - 2 Ur Epithelial Cells 0 - 2 Urine Opiates Screen Negative Urine Methadone Screen Negative Ur Barbiturates Screen Negative Ur Phencyclidine Scrn Negative Ur Amphetamines Screen Negative U Benzodiazepines Scrn Negative U Oth Cocaine Metabols Negative U Cannabinoids Screen Negative Assessment & Plan - Assessment and Plan (Free Text) Assessment: This is a 52 yo F with PMH of asthma, recent intubation for hypercapnic hypoxic respiratory failure (07/31/17), prior tobacco abuse (quit 6 months ago, 1ppd > 20 yrs), and recently discovered valvular heart disease with pulmonary HTN who represents for shortness of breath. She is being admitted for respiratory distress and concern for pending respiratory failure of unclear etiology ( infectious vs cardiac), with a low threshold for intubation. Plan: Neuro: -currently awake and alert -maintain normothermia Pulm: -acute respiratory distress on presentation, concern for pending respiratory failure 2/2 work of breathing -s/p Duonebs x3, Mag sulfate 1g, Solumedrol 125mg, lasix 40mg IVP, and loading dose aspirin in the ED; continue nebs dajuan q4/prn q2, solumedrol 20mg q12 -prominent pulm vasculature on CXR, possible bilateral basilar hazy infiltrates , was empirically covered for CAP during last admission, new possible PNA concerning for HCAP (readmission w/in 90 days); pending repeat CXR tomorrow AM -Empirical PNA coverage with Vanco/Zosyn/Zithromax, pending ID assessment and recs -pending procal, blood cx, urine legionella/strep pneumo antigen testing, mycoplasma IgM, rapid flu, HIV testing -ID consulted, appreciate all recs -ABG after 1 hr BiPAP at 07/01/18/35% was pCO2 46, pO2 156, pH 7.35, HCO3 25.4 on 35% fio2, no need for intubation at this time, continue to monitor, pending repeat ABG in AM -Continue BiPAP -Given hx Pulm HTN and pt report of acute worsening SOB hitting like a brick, concern for possible PE, pending CTA chest to r/o, if positive will start on therapeutic Lovenox Cardio: -tachycardic, more likely 2/2 SOB vs PE than arrhythmia -Echo obtained during last admission (08/01/17) was notable for EF 66%, severe MR and MS, severe TR, severe pulm HTN (RVSP 69) -Cardio (Dr. Cancino) consulted, appreciate all recs -EKG on admit notable for RBBB, but previously noted on EKG during last admit, no acute changes -trop x1 negative, will obtain repeat in AM GI: -NPO overnight due to bipap, aspiration risk -Protonix for GI ppx Renal: -Cr 0.9 -reports making frequent urine on home demadex 10mg daily, will diurese with IV Lasix 40mg daily while inpt -I's and O's -maintain euglycemia (BG 140-180) -monitor and replete electrolytes as needed Heme: -hgb 13.4 -given Lovenox 40mg SC for DVT ppx, can increased to therapeutic (1mg/kg) dosing if CTA positive for PE ID: -leukocytosis of 17.5 -infectious workup as above -ID consulted, appreciate their recs -covering with Zithro/Vanco/Zosyn pending ID recs Dispo: ICU, on Bipap, pending repeat ABG/CXR/EKG in AM, pending Cardio and ID eval and recs FEN: NPO due to Bipap, diuresising so avoid IVF Access: Peripheral IVs Consults: Cardio, ID Ppx: Protonix for GI, Lovenox SC for DVT Patient seen, reviewed, and discussed with attending, Dr. Smith. Decision To Admit - Pt Status Changed To: Hospital Disposition Of: Inpatient Admission - Admit Certification Admit to Inpatient:: After my assessment, the patient will require hospitalization for at least two midnights. This is because of the severity of symptoms shown, intensity of services needed, and/or the medical risk in this patient being treated as an outpatient. - . Bed Request Type: Critical Care <John Smith - Last Filed: 09/08/17 02:26> Results - Vital Signs Recent Vital Signs: Last Vital Signs Temp 97.8 F 09/07/17 23:55 Pulse 99 H 09/08/17 00:30 Resp 21 09/08/17 00:30 BP 113/65 09/08/17 00:00 Pulse Ox 98 09/08/17 00:30 - Labs Result Diagrams: 09/07/17 19:20 09/07/17 19:20 Labs: Laboratory Results - last 24 hr 09/07/17 09/07/17 09/08/17 22:00 22:00 01:30 pO2 40 VBG pH 7.33 VBG pCO2 51.0 VBG HCO3 26.9 VBG Total CO2 28.5 H VBG O2 Sat (Calc) 82.4 H VBG Base Excess 0.2 VBG Potassium 3.1 L Sodium 142.0 Chloride 106.0 Glucose 203 H Lactate 1.6 FiO2 21.0 Venous Blood Potassium 3.1 L Urine Color Yellow Urine Appearance Clear Urine pH 6.0 Ur Specific Embudo 1.015 Urine Protein Negative Urine Glucose (UA) Negative Urine Ketones Negative Urine Blood Trace-intact H Urine Nitrate Negative Urine Bilirubin Negative Urine Urobilinogen 0.2 Ur Leukocyte Esterase Trace H Urine RBC 0 - 2 Urine WBC 0 - 2 Ur Epithelial Cells 0 - 2 Urine Opiates Screen Negative Urine Methadone Screen Negative Ur Barbiturates Screen Negative Ur Phencyclidine Scrn Negative Ur Amphetamines Screen Negative U Benzodiazepines Scrn Negative U Oth Cocaine Metabols Negative U Cannabinoids Screen Negative Attending/Attestation - Attestation I have personally seen and examined this patient.: Yes I have fully participated in the care of the patient.: Yes I have reviewed all pertinent clinical information: Yes
[2017-09-08] MEDS: Albuterol-Ipratrop 3 mg / 0.5 (3 ml) UD IH SCH ×3 (01:40→08:34)
[2017-09-08 01:57] LABS: VENOUS BLOOD GAS BASE EXCESS 0.2 mmol/L (0.0-2.0); VENOUS BLOOD GAS PO2 40 mm/Hg (30-55); VENOUS BLOOD PH 7.33 (7.32-7.43)
[2017-09-08 06:07] LABS: ALB/GLOB RATIO 1.6 (1.1-1.8); ALBUMIN 4.3 g/dL (3.0-4.8); ALT/SGPT 47 U/L (7-56); AST/SGOT 32 U/L (14-36); BLOOD UREA NITROGEN 19 mg/dL (7-21); CALCIUM 9.1 mg/dL (8.4-10.5); GFR AFRICAN-AMERICAN > 60; GFR NON-AFRICAN AMERICAN > 60
[2017-09-08 06:17] LABS: BASO # 0.01 K/mm3 (0.0-2.0); BASO % 0.1 % (0.0-3.0); GRAN # 16.13 (1.4-6.5); GRAN % 94.9 % (50.0-68.0); HEMOGLOBIN 12.3 g/dL (12.0-16.0); LYMPH # 0.7 (1.2-3.4); LYMPH % 4.1 % (22.0-35.0); MEAN CELL VOLUME 87.6 fl (80.0-105.0); MEAN CORPUSCULAR HEMOGLOBIN 28.3 pg (25.0-35.0); MEAN CORPUSCULAR HGB CONC 32.3 g/dl (31.0-37.0); MEAN PLATELET VOLUME 10.8 fl (7.0-11.0); MONO # 0.2 (0.1-0.6); MONO % 0.9 % (1.0-6.0); PLATELET COUNT 244 10^3/uL (120.0-450.0); RBC 4.35 10^6/uL (3.5-6.1); RED CELL DISTRIBUTION WIDTH 13.8 % (11.5-14.5); TROPONIN I 0.02 ng/mL
[2017-09-08 06:39] LABS: ARTERIAL BLOOD GAS HCO3 25.4 mmol/L (21-28); ARTERIAL BLOOD GAS O2 SAT 97.3 % (95-98); ARTERIAL BLOOD GAS PCO2 40 mm/Hg (35-45); ARTERIAL BLOOD GAS PH 7.41 (7.35-7.45); ARTERIAL BLOOD GAS TCO2 26.6 mmol.L (22-28)
[2017-09-08 07:43] LABS: BAND 2 % (0-2); LYMPHOCYTE 10 % (22.0-35.0); MONOCYTE 1 % (1.0-6.0); NEUTROPHIL 87 % (50.0-70.0)
[2017-09-08 07:44] LABS: ANISOCYTOSIS SLIGHT; PLATELET ESTIMATE NORMAL (NORMAL)
[2017-09-08] MEDS: MethylPREDNISolone 40 mg Vial IVP SCH ×2 (09:34→21:41)
--- NOTE | 2017-09-08 09:39 | CARD ---
APPROVED REPORT EKG Measurement Heart [id number] <Conclusion> Normal sinus rhythm Possible Left atrial enlargement Left bundle branch block No change except the rate is slower.
--- NOTE | 2017-09-08 09:45 | CARD ---
APPROVED REPORT EKG Measurement Heart [id number] <Conclusion> Sinus tachycardia Left bundle branch block No change except the rate is faster
--- NOTE | 2017-09-08 11:22 | CP.CCUPN ---
<Josh Romero - Last Filed: 09/08/17 11:56> CCU Subjective - Physician Review Subjective (Free Text): 09/08/17 11:18 Patient seen and examined at bedside no longer using accessory muscles for breathing. Patient denies current shortness of breath, chest pain, nausea, vomiting, diarrhea, fevers, chills, headache. Critical Care Time Spent (in minutes): 40 CCU Objective - Vital Signs / Intake & Output Vital Signs (Last 4 hours): Vital Signs Temp Pulse Resp BP Pulse Ox 09/08/17 09:50 97 H 22 96 09/08/17 09:40 99 H 19 96 09/08/17 09:30 97 H 18 95 09/08/17 09:20 97 H 19 96 09/08/17 09:10 95 H 19 93 L 09/08/17 09:00 96 H 18 103/53 L 95 09/08/17 08:50 99 H 23 97 09/08/17 08:40 94 H 29 H 100 09/08/17 08:30 98 H 38 H 96 09/08/17 08:20 97 H 20 99 09/08/17 08:10 95 H 16 97 09/08/17 08:00 97.3 F L 94 H 31 H 118/53 L 97 09/08/17 07:50 96 09/08/17 07:40 94 H 12 96 09/08/17 07:30 96 H 33 H 95 09/08/17 07:20 92 H 96 Intake and Output (Last 8hrs): Intake & Output 09/07/17 09/08/17 09/08/17 22:59 06:59 14:59 Intake Total 820 Output Total 1000 Balance -180 Weight 86.353 kg Intake: Oral 120 Other 700 Output: Urine 1000 Urine, Voided 1000 Other: Voiding Method Bedside Commode # Bowel Movements 0 - Physical Exam Head: Positive for: Atraumatic, Normocephalic Pupils: Positive for: PERRL, Other (no nystagmus, no photophobia, sclera anicteric) Extroacular Muscles: Positive for: EOMI Conjunctiva: Positive for: Normal Ears: Positive for: Normal Mouth: Positive for: Moist Mucous Membranes, Other (fair dentitions, no drooling /stridor/exudates, no dysphonia, uvula/tongue are midline) Pharnyx: Positive for: Normal Nose (External): Positive for: Atraumatic Nose (Internal): Positive for: Normal Inspection Neck: Positive for: Normal Range of Motion, Trachea Midline, Other (no step off) . Negative for: Meningeal Signs, MIDLINE TENDERNESS Respiratory/Chest: Positive for: Clear to Auscultation. Negative for: Accessory Muscle Use, Rales, Rhonchi, Tender to Palpation Cardiovascular: Positive for: Murmurs, Normal S1, S2, Other (+ tachycardia, regular rhythm) Abdomen: Positive for: Normal Bowel Sounds, Other (well nourished/obese female, no focal tenderness, no masses/rebound/guarding/rigidity, no moore's sign, no mcburney's point tenderness). Negative for: Tenderness, Distention, Peritoneal Signs Back: Positive for: Normal Inspection, Other (no midline tenderness). Negative for: CVA Tenderness, Midline Tenderness Upper Extremity: Positive for: Normal Inspection, Normal ROM, NORMAL PULSES, Neurovascularly Intact, Capillary Refill < 2s. Negative for: Cyanosis, Edema Lower Extremity: Positive for: Normal Inspection, Edema (faint b/l lower ext +1/ 5 pitting edema up to mid-tib/fib; no rosmery's sign b/l, strength 5/5 grossly intact in all limbs, neurovasc intact b/l ), NORMAL PULSES Neurological: Positive for: GCS=15, CN II-XII Intact, Speech Normal Skin: Positive for: Warm, Dry, Normal Color, Other (cap refill < 1sec, no ulcerations, no petechiae, no rashes noted). Negative for: Rashes Psychiatric: Positive for: Alert, Oriented x 3, Normal Insight, Normal Concentration - Medications Active Medications: Active Medications Generic Name Dose Route Start Last Admin Trade Name Freq PRN Reason Stop Dose Admin Albuterol/Ipratropium 3 ml 09/07/17 21:38 Duoneb 3 Mg/0.5 Mg (3 Ml) Ud IH Q2H PRN Shortness of Breath Doxycycline Hyclate 100 mg 09/08/17 10:00 09/08/17 09:34 Doryx PO 09/17/17 10:01 100 mg Q12 DAJUAN Administration Protocol Vancomycin HCl 1 gm in 250 mls @ 167 mls/hr 09/07/17 21:45 09/08/17 09:33 Vancomycin 1gm IVPB 167 mls/hr Q12H DAJUAN Administration Protocol Cefepime HCl 1 gm in 100 mls @ 100 mls/hr 09/08/17 14:00 Maxipime 1gm IVPB 09/17/17 14:01 Q8 DAJUAN Protocol Methylprednisolone 20 mg 09/07/17 22:00 09/08/17 09:34 Solu-Medrol IVP 20 mg Q12 DAJUAN Administration Ondansetron HCl 4 mg 09/07/17 21:41 Zofran Inj IVP Q6H PRN Nausea/Vomiting - Patient Studies Lab Studies: Lab Studies 09/08/17 09/08/17 09/08/17 Range/Units 06:00 05:15 05:15 WBC 17.0 H (4.5-11.0) 10^3/ul RBC 4.35 (3.5-6.1) 10^6/uL Hgb 12.3 (12.0-16.0) g/dL Hct 38.1 (36.0-48.0) % MCV 87.6 (80.0-105.0) fl MCH 28.3 (25.0-35.0) pg MCHC 32.3 (31.0-37.0) g/dl RDW 13.8 (11.5-14.5) % Plt Count 244 (120.0-450.0) 10^3/uL MPV 10.8 (7.0-11.0) fl Gran % 94.9 H (50.0-68.0) % Lymph % (Auto) 4.1 L (22.0-35.0) % [place] % (Auto) 0.9 L (1.0-6.0) % Eos % (Auto) 0.0 L (1.5-5.0) % Baso % (Auto) 0.1 (0.0-3.0) % Gran # 16.13 H (1.4-6.5) Lymph # (Auto) 0.7 L (1.2-3.4) [place] # (Auto) 0.2 (0.1-0.6) Eos # (Auto) 0.0 (0.0-0.7) Baso # (Auto) 0.01 (0.0-2.0) K/mm3 Neutrophils % (Manual) 87 H (50.0-70.0) % Band Neutrophils % 2 (0-2) % Lymphocytes % (Manual) 10 L (22.0-35.0) % Monocytes % (Manual) 1 (1.0-6.0) % Platelet Evaluation Normal (NORMAL) Anisocytosis (manual) Slight pCO2 40 (35-45) mm/Hg pO2 71.0 L (30-55) mm/Hg HCO3 25.4 (21-28) mmol/L ABG pH 7.41 (7.35-7.45) ABG Total CO2 26.6 (22-28) mmol.L ABG O2 Saturation 97.3 (95-98) % ABG Base Excess 0.7 (-2.0-3.0) mmol/L ABG Potassium 3.5 L (3.6-5.2) mmol/L VBG pH (7.32-7.43) VBG pCO2 (40-60) VBG HCO3 (21-28) mmol/l VBG Total CO2 (22-28) mmol.L VBG O2 Sat (Calc) (40-65) % VBG Base Excess (0.0-2.0) mmol/L VBG Potassium (3.6-5.2) mmol/L Sodium 140.0 142 (132-148) mmol/L Chloride 109.0 H 105 (98-107) mmol/L Glucose 248 H (65-105) mg/dl Lactate 1.4 (0.7-2.1) mmol/L FiO2 32.0 % Potassium 3.8 (3.6-5.0) mmol/L Carbon Dioxide 23 (21-33) mmol/L Anion Gap 18 (10-20) BUN 19 (7-21) mg/dL Creatinine 0.8 (0.7-1.2) mg/dl Est GFR ( Amer) > 60 Est GFR (Non-Af Amer) > 60 Random Glucose 251 H (70-110) mg/dL Calcium 9.1 (8.4-10.5) mg/dL Phosphorus 3.0 (2.5-4.5) mg/dL Magnesium 2.2 (1.7-2.2) mg/dL Total Bilirubin 0.7 (0.2-1.3) mg/dL AST 32 (14-36) U/L ALT 47 (7-56) U/L Alkaline Phosphatase 72 (38-126) U/L Troponin I 0.02 D ng/mL Total Protein 6.9 (5.8-8.3) g/dL Albumin 4.3 (3.0-4.8) g/dL Globulin 2.6 gm/dL Albumin/Globulin Ratio 1.6 (1.1-1.8) Arterial Blood Potassium 3.5 L (3.6-5.2) mmol/L Venous Blood Potassium (3.6-5.2) mmol/L Urine Color (YELLOW) Urine Appearance (CLEAR) Urine pH (4.7-8.0) Ur Specific [place] (1.005-1.035) Urine Protein (<30 mg/dL) mg/dL Urine Glucose (UA) (NEGATIVE) mg/dL Urine Ketones (NEGATIVE) mg/dL Urine Blood (NEGATIVE) Urine Nitrate (NEGATIVE) Urine Bilirubin (NEGATIVE) Urine Urobilinogen (<1 E.U./dL) E.U./dL Ur Leukocyte Esterase (NEGATIVE) Germán/uL Urine RBC (0-2) /hpf Urine WBC (0-6) /hpf Ur Epithelial Cells (0-5) /hpf Urine Opiates Screen (NEGATIVE) Urine Methadone Screen (NEGATIVE) Ur Barbiturates Screen (NEGATIVE) Ur Phencyclidine Scrn (NEGATIVE) Ur Amphetamines Screen (NEGATIVE) U Benzodiazepines Scrn (NEGATIVE) U Oth Cocaine Metabols (NEGATIVE) U Cannabinoids Screen (NEGATIVE) 09/08/17 09/07/17 09/07/17 Range/Units 01:30 22:00 22:00 WBC (4.5-11.0) 10^3/ul RBC (3.5-6.1) 10^6/uL Hgb (12.0-16.0) g/dL Hct (36.0-48.0) % MCV (80.0-105.0) fl MCH (25.0-35.0) pg MCHC (31.0-37.0) g/dl RDW (11.5-14.5) % Plt Count (120.0-450.0) 10^3/uL MPV (7.0-11.0) fl Gran % (50.0-68.0) % Lymph % (Auto) (22.0-35.0) % [place] % (Auto) (1.0-6.0) % Eos % (Auto) (1.5-5.0) % Baso % (Auto) (0.0-3.0) % Gran # (1.4-6.5) Lymph # (Auto) (1.2-3.4) [place] # (Auto) (0.1-0.6) Eos # (Auto) (0.0-0.7) Baso # (Auto) (0.0-2.0) K/mm3 Neutrophils % (Manual) (50.0-70.0) % Band Neutrophils % (0-2) % Lymphocytes % (Manual) (22.0-35.0) % Monocytes % (Manual) (1.0-6.0) % Platelet Evaluation (NORMAL) Anisocytosis (manual) pCO2 (35-45) mm/Hg pO2 40 (30-55) mm/Hg HCO3 (21-28) mmol/L ABG pH (7.35-7.45) ABG Total CO2 (22-28) mmol.L ABG O2 Saturation (95-98) % ABG Base Excess (-2.0-3.0) mmol/L ABG Potassium (3.6-5.2) mmol/L VBG pH 7.33 (7.32-7.43) VBG pCO2 51.0 (40-60) VBG HCO3 26.9 (21-28) mmol/l VBG Total CO2 28.5 H (22-28) mmol.L VBG O2 Sat (Calc) 82.4 H (40-65) % VBG Base Excess 0.2 (0.0-2.0) mmol/L VBG Potassium 3.1 L (3.6-5.2) mmol/L Sodium 142.0 (132-148) mmol/L Chloride 106.0 (98-107) mmol/L Glucose 203 H (65-105) mg/dl Lactate 1.6 (0.7-2.1) mmol/L FiO2 21.0 % Potassium (3.6-5.0) mmol/L Carbon Dioxide (21-33) mmol/L Anion Gap (10-20) BUN (7-21) mg/dL Creatinine (0.7-1.2) mg/dl Est GFR ( Amer) Est GFR (Non-Af Amer) Random Glucose (70-110) mg/dL Calcium (8.4-10.5) mg/dL Phosphorus (2.5-4.5) mg/dL Magnesium (1.7-2.2) mg/dL Total Bilirubin (0.2-1.3) mg/dL AST (14-36) U/L ALT (7-56) U/L Alkaline Phosphatase (38-126) U/L Troponin I ng/mL Total Protein (5.8-8.3) g/dL Albumin (3.0-4.8) g/dL Globulin gm/dL Albumin/Globulin Ratio (1.1-1.8) Arterial Blood Potassium (3.6-5.2) mmol/L Venous Blood Potassium 3.1 L (3.6-5.2) mmol/L Urine Color Yellow (YELLOW) Urine Appearance Clear (CLEAR) Urine pH 6.0 (4.7-8.0) Ur Specific [place] 1.015 (1.005-1.035) Urine Protein Negative (<30 mg/dL) mg/dL Urine Glucose (UA) Negative (NEGATIVE) mg/dL Urine Ketones Negative (NEGATIVE) mg/dL Urine Blood Trace-intact H (NEGATIVE) Urine Nitrate Negative (NEGATIVE) Urine Bilirubin Negative (NEGATIVE) Urine Urobilinogen 0.2 (<1 E.U./dL) E.U./dL Ur Leukocyte Esterase Trace H (NEGATIVE) Germán/uL Urine RBC 0 - 2 (0-2) /hpf Urine WBC 0 - 2 (0-6) /hpf Ur Epithelial Cells 0 - 2 (0-5) /hpf Urine Opiates Screen Negative (NEGATIVE) Urine Methadone Screen Negative (NEGATIVE) Ur Barbiturates Screen Negative (NEGATIVE) Ur Phencyclidine Scrn Negative (NEGATIVE) Ur Amphetamines Screen Negative (NEGATIVE) U Benzodiazepines Scrn Negative (NEGATIVE) U Oth Cocaine Metabols Negative (NEGATIVE) U Cannabinoids Screen Negative (NEGATIVE) Laboratory Results - last 24 hr 09/07/17 09/07/17 09/08/17 22:00 22:00 01:30 WBC RBC Hgb Hct MCV MCH MCHC RDW Plt Count MPV Gran % Lymph % (Auto) [place] % (Auto) Eos % (Auto) Baso % (Auto) Gran # Lymph # (Auto) [place] # (Auto) Eos # (Auto) Baso # (Auto) Neutrophils % (Manual) Band Neutrophils % Lymphocytes % (Manual) Monocytes % (Manual) Platelet Evaluation Anisocytosis (manual) pCO2 pO2 40 HCO3 ABG pH ABG Total CO2 ABG O2 Saturation ABG Base Excess ABG Potassium VBG pH 7.33 VBG pCO2 51.0 VBG HCO3 26.9 VBG Total CO2 28.5 H VBG O2 Sat (Calc) 82.4 H VBG Base Excess 0.2 VBG Potassium 3.1 L Sodium 142.0 Chloride 106.0 Glucose 203 H Lactate 1.6 FiO2 21.0 Potassium Carbon Dioxide Anion Gap BUN Creatinine Est GFR ( Amer) Est GFR (Non-Af Amer) Random Glucose Calcium Phosphorus Magnesium Total Bilirubin AST ALT Alkaline Phosphatase Troponin I Total Protein Albumin Globulin Albumin/Globulin Ratio Arterial Blood Potassium Venous Blood Potassium 3.1 L Urine Color Yellow Urine Appearance Clear Urine pH 6.0 Ur Specific [place] 1.015 Urine Protein Negative Urine Glucose (UA) Negative Urine Ketones Negative Urine Blood Trace-intact H Urine Nitrate Negative Urine Bilirubin Negative Urine Urobilinogen 0.2 Ur Leukocyte Esterase Trace H Urine RBC 0 - 2 Urine WBC 0 - 2 Ur Epithelial Cells 0 - 2 Urine Opiates Screen Negative Urine Methadone Screen Negative Ur Barbiturates Screen Negative Ur Phencyclidine Scrn Negative Ur Amphetamines Screen Negative U Benzodiazepines Scrn Negative U Oth Cocaine Metabols Negative U Cannabinoids Screen Negative 09/08/17 09/08/17 09/08/17 05:15 05:15 06:00 WBC 17.0 H RBC 4.35 Hgb 12.3 Hct 38.1 MCV 87.6 MCH 28.3 MCHC 32.3 RDW 13.8 Plt Count 244 MPV 10.8 Gran % 94.9 H Lymph % (Auto) 4.1 L [place] % (Auto) 0.9 L Eos % (Auto) 0.0 L Baso % (Auto) 0.1 Gran # 16.13 H Lymph # (Auto) 0.7 L [place] # (Auto) 0.2 Eos # (Auto) 0.0 Baso # (Auto) 0.01 Neutrophils % (Manual) 87 H Band Neutrophils % 2 Lymphocytes % (Manual) 10 L Monocytes % (Manual) 1 Platelet Evaluation Normal Anisocytosis (manual) Slight pCO2 40 pO2 71.0 L HCO3 25.4 ABG pH 7.41 ABG Total CO2 26.6 ABG O2 Saturation 97.3 ABG Base Excess 0.7 ABG Potassium 3.5 L VBG pH VBG pCO2 VBG HCO3 VBG Total CO2 VBG O2 Sat (Calc) VBG Base Excess VBG Potassium Sodium 142 140.0 Chloride 105 109.0 H Glucose 248 H Lactate 1.4 FiO2 32.0 Potassium 3.8 Carbon Dioxide 23 Anion Gap 18 BUN 19 Creatinine 0.8 Est GFR ( Amer) > 60 Est GFR (Non-Af Amer) > 60 Random Glucose 251 H Calcium 9.1 Phosphorus 3.0 Magnesium 2.2 Total Bilirubin 0.7 AST 32 ALT 47 Alkaline Phosphatase 72 Troponin I 0.02 D Total Protein 6.9 Albumin 4.3 Globulin 2.6 Albumin/Globulin Ratio 1.6 Arterial Blood Potassium 3.5 L Venous Blood Potassium Urine Color Urine Appearance Urine pH Ur Specific [place] Urine Protein Urine Glucose (UA) Urine Ketones Urine Blood Urine Nitrate Urine Bilirubin Urine Urobilinogen Ur Leukocyte Esterase Urine RBC Urine WBC Ur Epithelial Cells Urine Opiates Screen Urine Methadone Screen Ur Barbiturates Screen Ur Phencyclidine Scrn Ur Amphetamines Screen U Benzodiazepines Scrn U Oth Cocaine Metabols U Cannabinoids Screen EKG/Cardiology Studies: Cardiology / EKG Studies 09/08/17 07:00 EKG [ELECTROCARDIOGRAM] DAILY Comment: Reason For Exam: f/u, reassess tachycardia Review of Systems - EENT Eyes: absent: Blurred Vision, Change in Vision - Cardiovascular Cardiovascular: absent: Chest Pain, Dyspnea - Respiratory Respiratory: absent: Cough, Dyspnea, Dyspnea on Exertion, Wheezing, Pain on Inspiration - Gastrointestinal Gastrointestinal: UNREMARKABLE. absent: Abdominal Pain, Nausea, Vomiting - Genitourinary Genitourinary: absent: Dysuria, Flank Pain - Musculoskeletal Musculoskeletal: absent: Back Pain, Numbness - Integumentary Integumentary: absent: Skin Pain, UNREMARKABLE - Neurological Neurological: absent: Dizziness, Numbness, Headaches - Psychiatric Psychiatric: absent: Anxiety - Endocrine Endocrine: UNREMARKABLE. absent: Fatigue, Polydipsia - Hematologic/Lymphatic Hematologic: UNREMARKABLE Critical Care Progress Note - Nutrition Nutrition: Nutrition Category Date Time Status Heart Healthy Diet [DIET] Diets 09/08/17 Breakfast Ordered Assessment/Plan - Assessment and Plan (Free Text) Assessment: This is a 52 yo F with PMH of asthma, recent intubation for hypercapnic hypoxic respiratory failure (07/31/17), prior tobacco abuse (quit 6 months ago, 1ppd > 20 yrs), and recently discovered valvular heart disease with pulmonary HTN who represents for shortness of breath. Patient is admitted for respiratory distress. Plan: Neuro: -currently awake and alert -maintain normothermia Pulm: -Continue with Duonebs dajuan q4/prn q2, solumedrol 20mg q12 -CXR new possible PNA concerning for HCAP (readmission w/in 90 days); current Empirical PNA coverage with vanc, cefepime, doxy pending ID assessment and recs -pending procal, blood cx, urine legionella/strep pneumo antigen testing, mycoplasma IgM, influenza a and b ab, HIV testing -ID consulted, appreciate all recs -Most recent ABG reveals PCO2 40, pO2 71, HCO3 25.4, pH 7.41 -CT shows no evidence of PE, however moderate to extensive diffuse ground glass opacities Cardio: -Echo obtained during last admission (08/01/17) was notable for EF 66%, severe MR and MS, severe TR, severe pulm HTN (RVSP 69) -Cardio (Dr. Cancino) consulted, appreciate all recs -EKG on admit notable for RBBB, but previously noted on EKG during last admit, no acute changes -trop negative x 2 GI: -NPO overnight due to bipap, aspiration risk -Protonix for GI ppx -COntinue with zofran Renal: -Cr 0.8 -reports making frequent urine on home demadex 10mg daily -I's and O's -maintain euglycemia (BG 140-180) -monitor and replete electrolytes as needed Heme: -hgb 12.3 -Lovenox 40mg SC qD for DVT ppx ID: -leukocytosis of 17.0 -infectious workup; HIV, Legionella, Rapid influenza, procal -ID consulted, appreciate their recs -covering with Zithro/Vanco/Zosyn pending ID recs -Influenza A and B ab ordered; results pending Dispo: Telemetry FEN: Heart healthy diet Access: Peripheral IVs Consults: Cardio, ID Ppx: Protonix for GI, Lovenox SC for DVT <Edvin Humphrey - Last Filed: 09/08/17 12:24> CCU Objective - Vital Signs / Intake & Output Vital Signs (Last 4 hours): Vital Signs Pulse Resp BP Pulse Ox 09/08/17 10:00 97 H 09/08/17 09:50 97 H 22 96 09/08/17 09:40 99 H 19 96 09/08/17 09:30 97 H 18 95 09/08/17 09:20 97 H 19 96 09/08/17 09:10 95 H 19 93 L 09/08/17 09:00 96 H 18 103/53 L 95 09/08/17 08:50 99 H 23 97 09/08/17 08:40 94 H 29 H 100 09/08/17 08:30 98 H 38 H 96 09/08/17 08:20 97 H 20 99 Intake and Output (Last 8hrs): Intake & Output 09/07/17 09/08/17 09/08/17 22:59 06:59 14:59 Intake Total 820 Output Total 1000 Balance -180 Weight 190 lb 6 oz Intake: Oral 120 Other 700 Output: Urine 1000 Urine, Voided 1000 Other: Voiding Method Bedside Commode # Bowel Movements 0 - Medications Active Medications: Active Medications Generic Name Dose Route Start Last Admin Trade Name Freq PRN Reason Stop Dose Admin Albuterol/Ipratropium 3 ml 09/07/17 21:38 Duoneb 3 Mg/0.5 Mg (3 Ml) Ud IH Q2H PRN Shortness of Breath Doxycycline Hyclate 100 mg 09/08/17 10:00 09/08/17 09:34 Doryx PO 09/17/17 10:01 100 mg Q12 DAJUAN Administration Protocol Enoxaparin Sodium 40 mg 09/08/17 14:00 Lovenox SC DAILY DAJUAN Protocol Vancomycin HCl 1 gm in 250 mls @ 167 mls/hr 09/07/17 21:45 09/08/17 09:33 Vancomycin 1gm IVPB 167 mls/hr Q12H DAJUAN Administration Protocol Cefepime HCl 1 gm in 100 mls @ 100 mls/hr 09/08/17 14:00 Maxipime 1gm IVPB 09/17/17 14:01 Q8 DAJUAN Protocol Methylprednisolone 20 mg 09/07/17 22:00 09/08/17 09:34 Solu-Medrol IVP 20 mg Q12 DAJUAN Administration Ondansetron HCl 4 mg 09/07/17 21:41 Zofran Inj IVP Q6H PRN Nausea/Vomiting - Patient Studies Lab Studies: Lab Studies 09/08/17 09/08/17 09/08/17 Range/Units 08:50 08:15 06:00 WBC (4.5-11.0) 10^3/ul RBC (3.5-6.1) 10^6/uL Hgb (12.0-16.0) g/dL Hct (36.0-48.0) % MCV (80.0-105.0) fl MCH (25.0-35.0) pg MCHC (31.0-37.0) g/dl RDW (11.5-14.5) % Plt Count (120.0-450.0) 10^3/uL MPV (7.0-11.0) fl Gran % (50.0-68.0) % Lymph % (Auto) (22.0-35.0) % [place] % (Auto) (1.0-6.0) % Eos % (Auto) (1.5-5.0) % Baso % (Auto) (0.0-3.0) % Gran # (1.4-6.5) Lymph # (Auto) (1.2-3.4) [place] # (Auto) (0.1-0.6) Eos # (Auto) (0.0-0.7) Baso # (Auto) (0.0-2.0) K/mm3 Neutrophils % (Manual) (50.0-70.0) % Band Neutrophils % (0-2) % Lymphocytes % (Manual) (22.0-35.0) % Monocytes % (Manual) (1.0-6.0) % Platelet Evaluation (NORMAL) Anisocytosis (manual) pCO2 40 (35-45) mm/Hg pO2 71.0 L (30-55) mm/Hg HCO3 25.4 (21-28) mmol/L ABG pH 7.41 (7.35-7.45) ABG Total CO2 26.6 (22-28) mmol.L ABG O2 Saturation 97.3 (95-98) % ABG Base Excess 0.7 (-2.0-3.0) mmol/L ABG Potassium 3.5 L (3.6-5.2) mmol/L VBG pH (7.32-7.43) VBG pCO2 (40-60) VBG HCO3 (21-28) mmol/l VBG Total CO2 (22-28) mmol.L VBG O2 Sat (Calc) (40-65) % VBG Base Excess (0.0-2.0) mmol/L VBG Potassium (3.6-5.2) mmol/L Sodium 140.0 (132-148) mmol/L Chloride 109.0 H (98-107) mmol/L Glucose 248 H (65-105) mg/dl Lactate 1.4 (0.7-2.1) mmol/L FiO2 32.0 % Potassium (3.6-5.0) mmol/L Carbon Dioxide (21-33) mmol/L Anion Gap (10-20) BUN (7-21) mg/dL Creatinine (0.7-1.2) mg/dl Est GFR ( Amer) Est GFR (Non-Af Amer) Random Glucose (70-110) mg/dL Calcium (8.4-10.5) mg/dL Phosphorus (2.5-4.5) mg/dL Magnesium (1.7-2.2) mg/dL Total Bilirubin (0.2-1.3) mg/dL AST (14-36) U/L ALT (7-56) U/L Alkaline Phosphatase (38-126) U/L Troponin I ng/mL Total Protein (5.8-8.3) g/dL Albumin (3.0-4.8) g/dL Globulin gm/dL Albumin/Globulin Ratio (1.1-1.8) Arterial Blood Potassium 3.5 L (3.6-5.2) mmol/L Venous Blood Potassium (3.6-5.2) mmol/L Urine Color (YELLOW) Urine Appearance (CLEAR) Urine pH (4.7-8.0) Ur Specific [place] (1.005-1.035) Urine Protein (<30 mg/dL) mg/dL Urine Glucose (UA) (NEGATIVE) mg/dL Urine Ketones (NEGATIVE) mg/dL Urine Blood (NEGATIVE) Urine Nitrate (NEGATIVE) Urine Bilirubin (NEGATIVE) Urine Urobilinogen (<1 E.U./dL) E.U./dL Ur Leukocyte Esterase (NEGATIVE) Germán/uL Urine RBC (0-2) /hpf Urine WBC (0-6) /hpf Ur Epithelial Cells (0-5) /hpf Urine Opiates Screen (NEGATIVE) Urine Methadone Screen (NEGATIVE) Ur Barbiturates Screen (NEGATIVE) Ur Phencyclidine Scrn (NEGATIVE) Ur Amphetamines Screen (NEGATIVE) U Benzodiazepines Scrn (NEGATIVE) U Oth Cocaine Metabols (NEGATIVE) U Cannabinoids Screen (NEGATIVE) Influenza Typ A,B (EIA) Negative for flu a/b (NEGATIVE) Ur L.pneumophila Ag Negative (NEGATIVE) 09/08/17 09/08/17 09/08/17 Range/Units 05:15 05:15 01:30 WBC 17.0 H (4.5-11.0) 10^3/ul RBC 4.35 (3.5-6.1) 10^6/uL Hgb 12.3 (12.0-16.0) g/dL Hct 38.1 (36.0-48.0) % MCV 87.6 (80.0-105.0) fl MCH 28.3 (25.0-35.0) pg MCHC 32.3 (31.0-37.0) g/dl RDW 13.8 (11.5-14.5) % Plt Count 244 (120.0-450.0) 10^3/uL MPV 10.8 (7.0-11.0) fl Gran % 94.9 H (50.0-68.0) % Lymph % (Auto) 4.1 L (22.0-35.0) % [place] % (Auto) 0.9 L (1.0-6.0) % Eos % (Auto) 0.0 L (1.5-5.0) % Baso % (Auto) 0.1 (0.0-3.0) % Gran # 16.13 H (1.4-6.5) Lymph # (Auto) 0.7 L (1.2-3.4) [place] # (Auto) 0.2 (0.1-0.6) Eos # (Auto) 0.0 (0.0-0.7) Baso # (Auto) 0.01 (0.0-2.0) K/mm3 Neutrophils % (Manual) 87 H (50.0-70.0) % Band Neutrophils % 2 (0-2) % Lymphocytes % (Manual) 10 L (22.0-35.0) % Monocytes % (Manual) 1 (1.0-6.0) % Platelet Evaluation Normal (NORMAL) Anisocytosis (manual) Slight pCO2 (35-45) mm/Hg pO2 40 (30-55) mm/Hg HCO3 (21-28) mmol/L ABG pH (7.35-7.45) ABG Total CO2 (22-28) mmol.L ABG O2 Saturation (95-98) % ABG Base Excess (-2.0-3.0) mmol/L ABG Potassium (3.6-5.2) mmol/L VBG pH 7.33 (7.32-7.43) VBG pCO2 51.0 (40-60) VBG HCO3 26.9 (21-28) mmol/l VBG Total CO2 28.5 H (22-28) mmol.L VBG O2 Sat (Calc) 82.4 H (40-65) % VBG Base Excess 0.2 (0.0-2.0) mmol/L VBG Potassium 3.1 L (3.6-5.2) mmol/L Sodium 142 142.0 (132-148) mmol/L Chloride 105 106.0 (98-107) mmol/L Glucose 203 H (65-105) mg/dl Lactate 1.6 (0.7-2.1) mmol/L FiO2 21.0 % Potassium 3.8 (3.6-5.0) mmol/L Carbon Dioxide 23 (21-33) mmol/L Anion Gap 18 (10-20) BUN 19 (7-21) mg/dL Creatinine 0.8 (0.7-1.2) mg/dl Est GFR ( Amer) > 60 Est GFR (Non-Af Amer) > 60 Random Glucose 251 H (70-110) mg/dL Calcium 9.1 (8.4-10.5) mg/dL Phosphorus 3.0 (2.5-4.5) mg/dL Magnesium 2.2 (1.7-2.2) mg/dL Total Bilirubin 0.7 (0.2-1.3) mg/dL AST 32 (14-36) U/L ALT 47 (7-56) U/L Alkaline Phosphatase 72 (38-126) U/L Troponin I 0.02 D ng/mL Total Protein 6.9 (5.8-8.3) g/dL Albumin 4.3 (3.0-4.8) g/dL Globulin 2.6 gm/dL Albumin/Globulin Ratio 1.6 (1.1-1.8) Arterial Blood Potassium (3.6-5.2) mmol/L Venous Blood Potassium 3.1 L (3.6-5.2) mmol/L Urine Color (YELLOW) Urine Appearance (CLEAR) Urine pH (4.7-8.0) Ur Specific [place] (1.005-1.035) Urine Protein (<30 mg/dL) mg/dL Urine Glucose (UA) (NEGATIVE) mg/dL Urine Ketones (NEGATIVE) mg/dL Urine Blood (NEGATIVE) Urine Nitrate (NEGATIVE) Urine Bilirubin (NEGATIVE) Urine Urobilinogen (<1 E.U./dL) E.U./dL Ur Leukocyte Esterase (NEGATIVE) Germán/uL Urine RBC (0-2) /hpf Urine WBC (0-6) /hpf Ur Epithelial Cells (0-5) /hpf Urine Opiates Screen (NEGATIVE) Urine Methadone Screen (NEGATIVE) Ur Barbiturates Screen (NEGATIVE) Ur Phencyclidine Scrn (NEGATIVE) Ur Amphetamines Screen (NEGATIVE) U Benzodiazepines Scrn (NEGATIVE) U Oth Cocaine Metabols (NEGATIVE) U Cannabinoids Screen (NEGATIVE) Influenza Typ A,B (EIA) (NEGATIVE) Ur L.pneumophila Ag (NEGATIVE) 09/07/17 09/07/17 Range/Units 22:00 22:00 WBC (4.5-11.0) 10^3/ul RBC (3.5-6.1) 10^6/uL Hgb (12.0-16.0) g/dL Hct (36.0-48.0) % MCV (80.0-105.0) fl MCH (25.0-35.0) pg MCHC (31.0-37.0) g/dl RDW (11.5-14.5) % Plt Count (120.0-450.0) 10^3/uL MPV (7.0-11.0) fl Gran % (50.0-68.0) % Lymph % (Auto) (22.0-35.0) % [place] % (Auto) (1.0-6.0) % Eos % (Auto) (1.5-5.0) % Baso % (Auto) (0.0-3.0) % Gran # (1.4-6.5) Lymph # (Auto) (1.2-3.4) [place] # (Auto) (0.1-0.6) Eos # (Auto) (0.0-0.7) Baso # (Auto) (0.0-2.0) K/mm3 Neutrophils % (Manual) (50.0-70.0) % Band Neutrophils % (0-2) % Lymphocytes % (Manual) (22.0-35.0) % Monocytes % (Manual) (1.0-6.0) % Platelet Evaluation (NORMAL) Anisocytosis (manual) pCO2 (35-45) mm/Hg pO2 (30-55) mm/Hg HCO3 (21-28) mmol/L ABG pH (7.35-7.45) ABG Total CO2 (22-28) mmol.L ABG O2 Saturation (95-98) % ABG Base Excess (-2.0-3.0) mmol/L ABG Potassium (3.6-5.2) mmol/L VBG pH (7.32-7.43) VBG pCO2 (40-60) VBG HCO3 (21-28) mmol/l VBG Total CO2 (22-28) mmol.L VBG O2 Sat (Calc) (40-65) % VBG Base Excess (0.0-2.0) mmol/L VBG Potassium (3.6-5.2) mmol/L Sodium (132-148) mmol/L Chloride (98-107) mmol/L Glucose (65-105) mg/dl Lactate (0.7-2.1) mmol/L FiO2 % Potassium (3.6-5.0) mmol/L Carbon Dioxide (21-33) mmol/L Anion Gap (10-20) BUN (7-21) mg/dL Creatinine (0.7-1.2) mg/dl Est GFR ( Amer) Est GFR (Non-Af Amer) Random Glucose (70-110) mg/dL Calcium (8.4-10.5) mg/dL Phosphorus (2.5-4.5) mg/dL Magnesium (1.7-2.2) mg/dL Total Bilirubin (0.2-1.3) mg/dL AST (14-36) U/L ALT (7-56) U/L Alkaline Phosphatase (38-126) U/L Troponin I ng/mL Total Protein (5.8-8.3) g/dL Albumin (3.0-4.8) g/dL Globulin gm/dL Albumin/Globulin Ratio (1.1-1.8) Arterial Blood Potassium (3.6-5.2) mmol/L Venous Blood Potassium (3.6-5.2) mmol/L Urine Color Yellow (YELLOW) Urine Appearance Clear (CLEAR) Urine pH 6.0 (4.7-8.0) Ur Specific [place] 1.015 (1.005-1.035) Urine Protein Negative (<30 mg/dL) mg/dL Urine Glucose (UA) Negative (NEGATIVE) mg/dL Urine Ketones Negative (NEGATIVE) mg/dL Urine Blood Trace-intact H (NEGATIVE) Urine Nitrate Negative (NEGATIVE) Urine Bilirubin Negative (NEGATIVE) Urine Urobilinogen 0.2 (<1 E.U./dL) E.U./dL Ur Leukocyte Esterase Trace H (NEGATIVE) Germán/uL Urine RBC 0 - 2 (0-2) /hpf Urine WBC 0 - 2 (0-6) /hpf Ur Epithelial Cells 0 - 2 (0-5) /hpf Urine Opiates Screen Negative (NEGATIVE) Urine Methadone Screen Negative (NEGATIVE) Ur Barbiturates Screen Negative (NEGATIVE) Ur Phencyclidine Scrn Negative (NEGATIVE) Ur Amphetamines Screen Negative (NEGATIVE) U Benzodiazepines Scrn Negative (NEGATIVE) U Oth Cocaine Metabols Negative (NEGATIVE) U Cannabinoids Screen Negative (NEGATIVE) Influenza Typ A,B (EIA) (NEGATIVE) Ur L.pneumophila Ag (NEGATIVE) Laboratory Results - last 24 hr 09/07/17 09/07/17 09/08/17 22:00 22:00 01:30 WBC RBC Hgb Hct MCV MCH MCHC RDW Plt Count MPV Gran % Lymph % (Auto) [place] % (Auto) Eos % (Auto) Baso % (Auto) Gran # Lymph # (Auto) [place] # (Auto) Eos # (Auto) Baso # (Auto) Neutrophils % (Manual) Band Neutrophils % Lymphocytes % (Manual) Monocytes % (Manual) Platelet Evaluation Anisocytosis (manual) pCO2 pO2 40 HCO3 ABG pH ABG Total CO2 ABG O2 Saturation ABG Base Excess ABG Potassium VBG pH 7.33 VBG pCO2 51.0 VBG HCO3 26.9 VBG Total CO2 28.5 H VBG O2 Sat (Calc) 82.4 H VBG Base Excess 0.2 VBG Potassium 3.1 L Sodium 142.0 Chloride 106.0 Glucose 203 H Lactate 1.6 FiO2 21.0 Potassium Carbon Dioxide Anion Gap BUN Creatinine Est GFR ( Amer) Est GFR (Non-Af Amer) Random Glucose Calcium Phosphorus Magnesium Total Bilirubin AST ALT Alkaline Phosphatase Troponin I Total Protein Albumin Globulin Albumin/Globulin Ratio Arterial Blood Potassium Venous Blood Potassium 3.1 L Urine Color Yellow Urine Appearance Clear Urine pH 6.0 Ur Specific [place] 1.015 Urine Protein Negative Urine Glucose (UA) Negative Urine Ketones Negative Urine Blood Trace-intact H Urine Nitrate Negative Urine Bilirubin Negative Urine Urobilinogen 0.2 Ur Leukocyte Esterase Trace H Urine RBC 0 - 2 Urine WBC 0 - 2 Ur Epithelial Cells 0 - 2 Urine Opiates Screen Negative Urine Methadone Screen Negative Ur Barbiturates Screen Negative Ur Phencyclidine Scrn Negative Ur Amphetamines Screen Negative U Benzodiazepines Scrn Negative U Oth Cocaine Metabols Negative U Cannabinoids Screen Negative Influenza Typ A,B (EIA) Ur L.pneumophila Ag 09/08/17 09/08/17 09/08/17 05:15 05:15 06:00 WBC 17.0 H RBC 4.35 Hgb 12.3 Hct 38.1 MCV 87.6 MCH 28.3 MCHC 32.3 RDW 13.8 Plt Count 244 MPV 10.8 Gran % 94.9 H Lymph % (Auto) 4.1 L [place] % (Auto) 0.9 L Eos % (Auto) 0.0 L Baso % (Auto) 0.1 Gran # 16.13 H Lymph # (Auto) 0.7 L [place] # (Auto) 0.2 Eos # (Auto) 0.0 Baso # (Auto) 0.01 Neutrophils % (Manual) 87 H Band Neutrophils % 2 Lymphocytes % (Manual) 10 L Monocytes % (Manual) 1 Platelet Evaluation Normal Anisocytosis (manual) Slight pCO2 40 pO2 71.0 L HCO3 25.4 ABG pH 7.41 ABG Total CO2 26.6 ABG O2 Saturation 97.3 ABG Base Excess 0.7 ABG Potassium 3.5 L VBG pH VBG pCO2 VBG HCO3 VBG Total CO2 VBG O2 Sat (Calc) VBG Base Excess VBG Potassium Sodium 142 140.0 Chloride 105 109.0 H Glucose 248 H Lactate 1.4 FiO2 32.0 Potassium 3.8 Carbon Dioxide 23 Anion Gap 18 BUN 19 Creatinine 0.8 Est GFR ( Amer) > 60 Est GFR (Non-Af Amer) > 60 Random Glucose 251 H Calcium 9.1 Phosphorus 3.0 Magnesium 2.2 Total Bilirubin 0.7 AST 32 ALT 47 Alkaline Phosphatase 72 Troponin I 0.02 D Total Protein 6.9 Albumin 4.3 Globulin 2.6 Albumin/Globulin Ratio 1.6 Arterial Blood Potassium 3.5 L Venous Blood Potassium Urine Color Urine Appearance Urine pH Ur Specific [place] Urine Protein Urine Glucose (UA) Urine Ketones Urine Blood Urine Nitrate Urine Bilirubin Urine Urobilinogen Ur Leukocyte Esterase Urine RBC Urine WBC Ur Epithelial Cells Urine Opiates Screen Urine Methadone Screen Ur Barbiturates Screen Ur Phencyclidine Scrn Ur Amphetamines Screen U Benzodiazepines Scrn U Oth Cocaine Metabols U Cannabinoids Screen Influenza Typ A,B (EIA) Ur L.pneumophila Ag 09/08/17 09/08/17 08:15 08:50 WBC RBC Hgb Hct MCV MCH MCHC RDW Plt Count MPV Gran % Lymph % (Auto) [place] % (Auto) Eos % (Auto) Baso % (Auto) Gran # Lymph # (Auto) [place] # (Auto) Eos # (Auto) Baso # (Auto) Neutrophils % (Manual) Band Neutrophils % Lymphocytes % (Manual) Monocytes % (Manual) Platelet Evaluation Anisocytosis (manual) pCO2 pO2 HCO3 ABG pH ABG Total CO2 ABG O2 Saturation ABG Base Excess ABG Potassium VBG pH VBG pCO2 VBG HCO3 VBG Total CO2 VBG O2 Sat (Calc) VBG Base Excess VBG Potassium Sodium Chloride Glucose Lactate FiO2 Potassium Carbon Dioxide Anion Gap BUN Creatinine Est GFR ( Amer) Est GFR (Non-Af Amer) Random Glucose Calcium Phosphorus Magnesium Total Bilirubin AST ALT Alkaline Phosphatase Troponin I Total Protein Albumin Globulin Albumin/Globulin Ratio Arterial Blood Potassium Venous Blood Potassium Urine Color Urine Appearance Urine pH Ur Specific [place] Urine Protein Urine Glucose (UA) Urine Ketones Urine Blood Urine Nitrate Urine Bilirubin Urine Urobilinogen Ur Leukocyte Esterase Urine RBC Urine WBC Ur Epithelial Cells Urine Opiates Screen Urine Methadone Screen Ur Barbiturates Screen Ur Phencyclidine Scrn Ur Amphetamines Screen U Benzodiazepines Scrn U Oth Cocaine Metabols U Cannabinoids Screen Influenza Typ A,B (EIA) Negative for flu a/b Ur L.pneumophila Ag Negative EKG/Cardiology Studies: Cardiology / EKG Studies 09/08/17 07:00 EKG [ELECTROCARDIOGRAM] DAILY Comment: Reason For Exam: f/u, reassess tachycardia Critical Care Progress Note - Nutrition Nutrition: Nutrition Category Date Time Status Heart Healthy Diet [DIET] Diets 09/08/17 Breakfast Ordered Assessment/Plan - Assessment and Plan (Free Text) Plan: Patient seen and examined on rounds with resident, agree with note with following additions/exceptions: Patient is 52yo female with PMhx of PUlm HTN, former smoker, ASthma/COPD, presented with hypercapnia, SOB, and PNA requiring BIPAP. Currently afebrile, HD stable, comfortable, in NAD, speaking full sentences. On broad spectrum antibiotics. CT chest moderate extensive ground glass opacities. SOB Hypercapnia PNA Ground glass opacities Asthma/COPD Recommend: - supp o2 as needed, goal sat >90% - BP control - Duoenbs PRN - Solumedrol IV - Broad spectrum antibiotics - ID follow up, check Procal, Urine Lg, Strep, HIV - follow up cardiology - would give low dose Lasix PO daily, given GGO on ct chest can be fluid - FS control - GI ppx - DVT ppx - stable, transfer to telemetry
--- NOTE | 2017-09-08 14:03 | CP.PCM.PN ---
<Miky Castrejon - Last Filed: 09/08/17 13:58> Subjective - Date & Time of Evaluation Date of Evaluation: 09/08/17 Time of Evaluation: 09:40 - Subjective Subjective: Medicine progress note Patient seen and examined at bedside this morning. She was sitting up comfortably eating her breakfast. No acute overnight events or new complaints reported. Reports that her breathing has improved significantly since arriving. Denied chest pain, palpitations, fever, chills. Objective - Vital Signs/Intake and Output Vital Signs (last 24 hours): Temp Pulse Resp BP Pulse Ox 98.4 F 103 H 17 104/49 L 99 09/08/17 12:20 09/08/17 12:10 09/08/17 12:10 09/08/17 12:00 09/08/17 12:10 Intake and Output: 09/08/17 09/08/17 06:59 18:59 Intake Total 820 Output Total 1000 Balance -180 - Medications Medications: Current Medications Albuterol/Ipratropium (Duoneb 3 Mg/0.5 Mg (3 Ml) Ud) 3 ml IH Q2H PRN PRN Reason: Shortness of Breath Doxycycline Hyclate (Doryx) 100 mg PO Q12 JUAN ALBERTO PRN Reason: Protocol Stop: 09/17/17 10:01 Last Admin: 09/08/17 09:34 Dose: 100 mg Enoxaparin Sodium (Lovenox) 40 mg SC DAILY JUAN ALBERTO PRN Reason: Protocol Vancomycin HCl (Vancomycin 1gm) 1 gm in 250 mls @ 167 mls/hr IVPB Q12H JUAN ALBERTO PRN Reason: Protocol Last Admin: 09/08/17 09:33 Dose: 167 mls/hr Cefepime HCl (Maxipime 1gm) 1 gm in 100 mls @ 100 mls/hr IVPB Q8 JUAN ALBERTO PRN Reason: Protocol Stop: 09/17/17 14:01 Methylprednisolone (Solu-Medrol) 20 mg IVP Q12 JUAN ALBERTO Last Admin: 09/08/17 09:34 Dose: 20 mg Ondansetron HCl (Zofran Inj) 4 mg IVP Q6H PRN PRN Reason: Nausea/Vomiting - Labs Labs: 09/08/17 05:15 09/08/17 05:15 PT 11.6 SECONDS (9.4-12.5) 09/07/17 19:20 INR 1.02 (0.93-1.08) 09/07/17 19:20 APTT 30.0 Seconds (25.1-36.5) 09/07/17 19:20 - Constitutional Appears: No Acute Distress - Head Exam Head Exam: ATRAUMATIC, NORMOCEPHALIC - Eye Exam Eye Exam: EOMI, PERRL - ENT Exam ENT Exam: Mucous Membranes Moist - Respiratory Exam Respiratory Exam: Wheezes. absent: Rales, Rhonchi - Cardiovascular Exam Cardiovascular Exam: RRR, +S1, +S2. absent: Gallop, JVD, Rubs - GI/Abdominal Exam GI & Abdominal Exam: Soft. absent: Distended, Firm, Guarding, Rigid, Tenderness , Rebound - Neurological Exam Neurological Exam: Alert, Awake, CN II-XII Intact, Oriented x3 - Psychiatric Exam Psychiatric exam: Normal Affect, Normal Mood - Skin Skin Exam: Dry, Intact, Normal Color, Warm Assessment and Plan - Assessment and Plan (Free Text) Plan: 52yo female with history of asthma with recent intubation from respiratory failure (07/31/17), valvular heart disease and pulmonary HTN who presents with complaints of SOB. 1. Shortness of breath secondary to acute asthma exacerbation -Admitted to ICU for concern for possible respiratory failure on presentation -Received Duonebs x3, Mag sulfate 1g, Solumedrol 125mg, lasix 40mg IVP, and loading dose aspirin in the ED -Continue nebs q2h PRN -Continue solumedrol 20mg q12 -Continue cefepime, vancomycin and doxycycline per ID recommendations -ID consulted - Dr. May -CXR and ABG reviewed -Pending procal, blood cx, urine legionella/strep pneumo antigen testing, mycoplasma IgM, rapid flu, HIV testing -Continue BiPAP as indicated -CTA negative for PE 2. Valvular disease/Pulmonary HTN -EKG on admission notable for RBBB, but previously noted on EKG during last admit, no acute changes -troponin negative x2 -Echo obtained during last admission (08/01/17) was notable for EF 66%, severe MR and MS, severe TR, severe pulm HTN (RVSP 69) -Cardio consulted - Dr. Cancino 3. GI/DVT Prophylaxis -Protonix/Lovenox Patient seen and case discussed/reviewed with attending <Winston Vieira - Last Filed: 09/08/17 15:10> Objective - Vital Signs/Intake and Output Vital Signs (last 24 hours): Temp Pulse Resp BP Pulse Ox 98.4 F 103 H 17 104/49 L 99 09/08/17 12:20 09/08/17 12:10 09/08/17 12:10 09/08/17 12:00 09/08/17 12:10 Intake and Output: 09/08/17 09/08/17 06:59 18:59 Intake Total 820 Output Total 1000 Balance -180 - Medications Medications: Current Medications Albuterol/Ipratropium (Duoneb 3 Mg/0.5 Mg (3 Ml) Ud) 3 ml IH Q2H PRN PRN Reason: Shortness of Breath Doxycycline Hyclate (Doryx) 100 mg PO Q12 JUAN ALBERTO PRN Reason: Protocol Stop: 09/17/17 10:01 Last Admin: 09/08/17 09:34 Dose: 100 mg Enoxaparin Sodium (Lovenox) 40 mg SC DAILY JUAN ALBERTO PRN Reason: Protocol Last Admin: 09/08/17 14:24 Dose: 40 mg Vancomycin HCl (Vancomycin 1gm) 1 gm in 250 mls @ 167 mls/hr IVPB Q12H JUAN ALBERTO PRN Reason: Protocol Last Admin: 09/08/17 09:33 Dose: 167 mls/hr Cefepime HCl (Maxipime 1gm) 1 gm in 100 mls @ 100 mls/hr IVPB Q8 JUAN ALBERTO PRN Reason: Protocol Stop: 09/17/17 14:01 Last Admin: 09/08/17 14:24 Dose: 100 mls/hr Methylprednisolone (Solu-Medrol) 20 mg IVP Q12 JUAN ALBERTO Last Admin: 09/08/17 09:34 Dose: 20 mg Ondansetron HCl (Zofran Inj) 4 mg IVP Q6H PRN PRN Reason: Nausea/Vomiting - Labs Labs: 09/08/17 05:15 09/08/17 05:15 PT 11.6 SECONDS (9.4-12.5) 09/07/17 19:20 INR 1.02 (0.93-1.08) 09/07/17 19:20 APTT 30.0 Seconds (25.1-36.5) 09/07/17 19:20 Attending/Attestation - Attestation I have personally seen and examined this patient.: Yes I have fully participated in the care of the patient.: Yes I have reviewed all pertinent clinical information, including history, physical exam and plan: Yes Notes (Text): 09/08/17 15:06 52 year old female with past medical history of asthma, history of recent intubation, valvular heart disease and pulmonary hypertension who presented with complaint of shortness of breath. She is started on iv steroids and antibiotics for asthma exacerbation, possible pneumonia and ground glass opacities seen on CXR/CT. She is on lasix as well. Will follow up with pulmonary, cardiology and ID recommendations. Will follow up on cultures. Winston Vieira MD Hospitalist.
[2017-09-08] MEDS: Enoxaparin 40 mg Syringe SC SCH (14:24)
[2017-09-08] MEDS: Cefepime 1gm in NS 100ml 1 GM/100 ML BAG IVPB SCH ×2 (14:24→21:40)
--- NOTE | 2017-09-08 14:33 | RAD ---
HISTORY: sob/chest pain COMPARISON: 08/01/2017 FINDINGS: LUNGS: Diffuse bilateral ground-glass opacity. Possible pulmonary edema though nonspecific. Cannot rule out infectious or inflammatory etiology. PLEURA: No significant pleural effusion identified, no pneumothorax apparent. CARDIOVASCULAR: Normal heart size. Mild congestive change. OSSEOUS STRUCTURES: No significant abnormalities. VISUALIZED UPPER ABDOMEN: Normal. OTHER FINDINGS: None. IMPRESSION: Bilateral diffuse ground-glass opacity. Possible pulmonary edema. No focal consolidation. Mild congestive change.
[2017-09-08] MEDS: Albuterol-Ipratrop 3 mg / 0.5 (3 ml) UD IH PRN (20:15)
--- NOTE | 2017-09-08 20:38 | CON ---
DATE: 09/08/2017 LOCATION: The patient seen in the ICU 128, bed 2. CHIEF COMPLAINT: Shortness of breath, which has improved now, 1-day duration. HISTORY OF PRESENT ILLNESS: This is a 52-year-old female with past medical history significant for asthma and she has required intubation in the past and she also is a substance user who was admitted with shortness of breath and asthma exacerbation. In emergency room, Dr. Miles Julien saw the patient yesterday and admitted the patient because of shortness of breath, which was he described as severe shortness of breath to a point where she had some difficulty communicating. She denied any fevers, chills, or any chest pain at this time. No abdominal pain, diarrhea, or constipation. No bright red blood per rectum. No melena. She states she did have chest tightness yesterday and no headaches or blurred vision. REVIEW OF SYSTEMS: Reveals no dysuria, no frequency, no blood per rectum, no diarrhea or constipation, no melena. PAST MEDICAL HISTORY: Significant for asthma, which has required intubation in the past. PAST SURGICAL HISTORY: Noncontributory. SUBSTANCE ABUSE: Reveals heroin use and she had been on heroin program in the past. ALLERGIES: THE PATIENT HAS NO KNOWN ALLERGIES. MEDICATIONS AT HOME: Reveals the patient to be on Demadex 10 mg p.o. daily. PHYSICAL EXAMINATION: GENERAL: She is in bed. VITAL SIGNS: Temperature of 98; pulse of 93, it was up to 96; respiratory rate of 24; blood pressure is 103/60. The patient's pulse oximetry was 94%. HEENT: Unremarkable. NECK: Supple. LUNGS: Have decreased breath sounds. HEART: Normal S1, S2. ABDOMEN: Soft, nontender. No rebound or guarding. No masses. LABORATORY DATA: Reveals the patient's white count is 17,500, hemoglobin of 13, platelets of 420 and 61% granulocytosis, 30% lymphocytosis. Coagulation is noted. Chemistry reveals a BUN of 18, creatinine of 0.9. AST is 55, LDH is 704. Anion gap is 22, bicarb is 18. Toxicology is negative. Urinalysis is unremarkable. The patient's CAT scan of the chest, no definite pulmonary emboli. There is ground-glass opacity, nonspecific with a differential diagnosis of pulmonary edema versus pneumonia, interstitial lung disease, pneumonitis. Dr. John Smith's note is reviewed. He states that the patient was discovered to have valvular heart disease and pulmonary hypertension. ASSESSMENT AND PLAN: This is a 52-year-old female with asthma, substance abuse, valvular heart disease, pulmonary hypertension, admitted with shortness of breath, tachycardia, leukocytosis, questionable infiltrate on CAT scan and sepsis with community-acquired pneumonia and the patient's exacerbation of asthma. The patient had recently been intubated. So, it is actually a healthcare-associated pneumonia. We will treat the patient with Maxipime and doxycycline. The patient did have an EKG and an echocardiogram on last admission. EKG shows a QTc of 477 and we will check on the pancultures; blood, sputum is pending. HIV has been ordered. Urine for Legionella has been ordered. Procalcitonin is pending. Rapid flu is pending. The patient is on Solu-Medrol. We will discontinue azithromycin and use Maxipime and doxycycline pending cultures and initial workup results. The patient with sepsis with healthcare-associated pneumonia and exacerbation of her asthma who has recently been hospitalized and intubated. We will also check on the HIV test. Adam May MD
[2017-09-09] MEDS: Albuterol-Ipratrop 3 mg / 0.5 (3 ml) UD IH PRN ×2 (04:57→11:15)
[2017-09-09] MEDS: Cefepime 1gm in NS 100ml 1 GM/100 ML BAG IVPB SCH ×3 (05:13→21:14)
[2017-09-09 08:18] LABS: HEMOGLOBIN 12.7 g/dL (12.0-16.0); MEAN CELL VOLUME 88.4 fl (80.0-105.0); MEAN CORPUSCULAR HEMOGLOBIN 28.9 pg (25.0-35.0); MEAN CORPUSCULAR HGB CONC 32.7 g/dl (31.0-37.0); MEAN PLATELET VOLUME 10.6 fl (7.0-11.0); RBC 4.39 10^6/uL (3.5-6.1); RED CELL DISTRIBUTION WIDTH 14.2 % (11.5-14.5)
[2017-09-09 08:28] LABS: ALB/GLOB RATIO 1.7 (1.1-1.8); ALBUMIN 4.7 g/dL (3.0-4.8); ALT/SGPT 42 U/L (7-56); AST/SGOT 32 U/L (14-36); BLOOD UREA NITROGEN 15 mg/dL (7-21); CALCIUM 9.5 mg/dL (8.4-10.5); GFR AFRICAN-AMERICAN > 60; GFR NON-AFRICAN AMERICAN > 60
[2017-09-09] MEDS: Enoxaparin 40 mg Syringe SC SCH (09:44)
[2017-09-09] MEDS: MethylPREDNISolone 40 mg Vial IVP SCH ×2 (09:44→21:13)
[2017-09-09] MEDS: Vancomycin 1gm in NS 250ml 1 GM/250 ML BAG IVPB SCH (09:45)
[2017-09-09] MEDS ORDERED: Azithromycin 250 MG in Sodium Chloride 0.9% 250 ML IVPB SCH (10:00)
--- NOTE | 2017-09-09 10:31 | CP.PCM.PN ---
Subjective - Date & Time of Evaluation Date of Evaluation: 09/09/17 Time of Evaluation: 09:35 - Subjective Subjective: Breathing better but still with occasional chest tightness, no fevers overnight , no nausea or diarrhea. Objective - Vital Signs/Intake and Output Vital Signs (last 24 hours): Temp Pulse Resp BP Pulse Ox 98.3 F 95 H 21 96/52 L 92 L 09/09/17 04:00 09/09/17 02:00 09/09/17 02:00 09/09/17 02:00 09/09/17 02:00 Intake and Output: 09/08/17 09/09/17 18:59 06:59 Intake Total 1550 350 Output Total 760 600 Balance 790 -250 - Medications Medications: Current Medications Albuterol/Ipratropium (Duoneb 3 Mg/0.5 Mg (3 Ml) Ud) 3 ml IH Q2H PRN PRN Reason: Shortness of Breath Last Admin: 09/09/17 04:57 Dose: 3 ml Doxycycline Hyclate (Doryx) 100 mg PO Q12 JUAN ALBERTO PRN Reason: Protocol Stop: 09/17/17 10:01 Last Admin: 09/08/17 21:41 Dose: 100 mg Enoxaparin Sodium (Lovenox) 40 mg SC DAILY JUAN ALBERTO PRN Reason: Protocol Last Admin: 09/08/17 14:24 Dose: 40 mg Vancomycin HCl (Vancomycin 1gm) 1 gm in 250 mls @ 167 mls/hr IVPB Q12H JUAN ALBERTO PRN Reason: Protocol Last Admin: 09/08/17 21:40 Dose: 167 mls/hr Cefepime HCl (Maxipime 1gm) 1 gm in 100 mls @ 100 mls/hr IVPB Q8 JUAN ALBERTO PRN Reason: Protocol Stop: 09/17/17 14:01 Last Admin: 09/09/17 05:13 Dose: 100 mls/hr Methylprednisolone (Solu-Medrol) 20 mg IVP Q12 JUAN ALBERTO Last Admin: 09/08/17 21:41 Dose: 20 mg Ondansetron HCl (Zofran Inj) 4 mg IVP Q6H PRN PRN Reason: Nausea/Vomiting - Labs Labs: 09/08/17 05:15 09/08/17 05:15 PT 11.6 SECONDS (9.4-12.5) 09/07/17 19:20 INR 1.02 (0.93-1.08) 09/07/17 19:20 APTT 30.0 Seconds (25.1-36.5) 09/07/17 19:20 - Constitutional Appears: Chronically Ill - Head Exam Head Exam: NORMAL INSPECTION - ENT Exam ENT Exam: Mucous Membranes Moist - Neck Exam Neck Exam: absent: Meningismus - Respiratory Exam Respiratory Exam: Decreased Breath Sounds. absent: Wheezes - Cardiovascular Exam Cardiovascular Exam: +S1, +S2 - GI/Abdominal Exam GI & Abdominal Exam: Soft. absent: Tenderness Assessment and Plan - Assessment and Plan (Free Text) Plan: Assessment Consider sepsis due to HCAP on top of severe acute asthma exacerbation recent intubation due to hypercapneic respiratory failure (2017) significant smoking history Plan Continue Cefepime and Doxycycline day 2 pending final culture results; rapid Influenza test is negative; PCT is <0.05 - if cultures are negative, will d/c Cefepime follow up HIV test
--- NOTE | 2017-09-09 12:34 | CP.PCM.PN ---
<Tracey English - Last Filed: 09/09/17 14:43> Subjective - Date & Time of Evaluation Date of Evaluation: 09/09/17 Time of Evaluation: 12:33 - Subjective Subjective: Internal Medicine Progress Note: Patient seen and examined at bedside. Per nursing no acute events overnight. Patient states that shortness of breath was improving. Still having intermittent chest tightness. Later in the afternoon, was called to the bedside for worsening shortness of breath. STAT dose of Lasix 20mg IVP given, CXR ordered. Objective - Vital Signs/Intake and Output Vital Signs (last 24 hours): Temp Pulse Resp BP Pulse Ox 98.3 F 94 H 20 104/55 L 99 09/09/17 04:00 09/09/17 08:30 09/09/17 08:30 09/09/17 08:27 09/09/17 08:30 Intake and Output: 09/09/17 09/09/17 06:59 18:59 Intake Total 350 Output Total 600 Balance -250 - Medications Medications: Current Medications Albuterol/Ipratropium (Duoneb 3 Mg/0.5 Mg (3 Ml) Ud) 3 ml IH Q2H PRN PRN Reason: Shortness of Breath Last Admin: 09/09/17 11:15 Dose: 3 ml Doxycycline Hyclate (Doryx) 100 mg PO Q12 JUAN ALBERTO PRN Reason: Protocol Stop: 09/17/17 10:01 Last Admin: 09/09/17 09:44 Dose: 100 mg Enoxaparin Sodium (Lovenox) 40 mg SC DAILY JUAN ALBERTO PRN Reason: Protocol Last Admin: 09/09/17 09:44 Dose: 40 mg Furosemide (Lasix) 20 mg IVP ONCE ONE Stop: 09/09/17 12:33 Cefepime HCl (Maxipime 1gm) 1 gm in 100 mls @ 100 mls/hr IVPB Q8 JUAN ALBERTO PRN Reason: Protocol Stop: 09/17/17 14:01 Last Admin: 09/09/17 05:13 Dose: 100 mls/hr Methylprednisolone (Solu-Medrol) 20 mg IVP Q12 JUAN ALBERTO Last Admin: 09/09/17 09:44 Dose: 20 mg Ondansetron HCl (Zofran Inj) 4 mg IVP Q6H PRN PRN Reason: Nausea/Vomiting - Labs Labs: 09/09/17 08:14 09/09/17 08:14 PT 11.6 SECONDS (9.4-12.5) 09/07/17 19:20 INR 1.02 (0.93-1.08) 09/07/17 19:20 APTT 30.0 Seconds (25.1-36.5) 09/07/17 19:20 - Constitutional Appears: No Acute Distress - Head Exam Head Exam: ATRAUMATIC, NORMAL INSPECTION, NORMOCEPHALIC - Eye Exam Eye Exam: EOMI, Normal appearance - ENT Exam ENT Exam: Mucous Membranes Moist - Neck Exam Neck Exam: Full ROM - Respiratory Exam Respiratory Exam: Decreased Breath Sounds, Rales, NORMAL BREATHING PATTERN. absent: Rhonchi - Cardiovascular Exam Cardiovascular Exam: REGULAR RHYTHM, +S1, +S2 - GI/Abdominal Exam GI & Abdominal Exam: Soft, Normal Bowel Sounds. absent: Guarding, Rigid, Tenderness - Extremities Exam Extremities Exam: Normal Inspection - Back Exam Back Exam: NORMAL INSPECTION - Neurological Exam Neurological Exam: Alert, Awake, Oriented x3 - Psychiatric Exam Psychiatric exam: Normal Affect, Normal Mood - Skin Skin Exam: Dry, Normal Color, Warm Assessment and Plan - Assessment and Plan (Free Text) Assessment: 52yo female with history of asthma with recent intubation from respiratory failure (07/31/17), valvular heart disease and pulmonary HTN who presents with complaints of SOB. 1. Shortness of breath secondary to acute asthma exacerbation vs CHF exacerbation vs Healthcare associated Pneumonia -Patient was admitted to ICU for concern for possible respiratory failure on presentation -Patient downgraded to Telemetry yesterday -CT Chest: moderate to extensive diffuse groundglass opacities; few pulmonary nodules up to 0.3cm, small cyst/bulla RLL -CXR 09/09: persistent severe pulmonary venous congestion -Continue Xopenex q6h PRN -Continue Solumedrol 20mg q12 -Lasix 20mg Q12H added -Continue Cefepime, Vancomycin and Doxycycline per ID recommendations -Urine legionella and influenza negative -Blood cultures no growth x 24 hours; procal <0.05 -F/U HIV, mycoplasma, sputum culture -ID consulted - Dr. May -Continue BiPAP as indicated -CTA negative for PE 2. Valvular disease/Pulmonary HTN -EKG on admission notable for RBBB, but previously noted on EKG during last admit, no acute changes -Troponin negative x3 -Echo obtained during last admission (08/01/17) was notable for EF 66%, severe MR and MS, severe TR, severe pulm HTN (RVSP 69) -Cardio consulted - Dr. Cancino 3. GI/DVT Prophylaxis -Protonix/Lovenox Patient seen and case discussed/reviewed with attending <Rudy Prieto - Last Filed: 09/11/17 14:54> Objective - Vital Signs/Intake and Output Vital Signs (last 24 hours): Temp Pulse Resp BP Pulse Ox 98 F 99 H 12 113/63 97 09/11/17 12:00 09/11/17 11:50 09/11/17 11:40 09/11/17 10:01 09/11/17 11:50 Intake and Output: 09/11/17 09/11/17 06:59 18:59 Intake Total 450 Output Total 900 Balance -450 - Labs Labs: 09/11/17 06:00 09/11/17 07:30 PT 11.6 SECONDS (9.4-12.5) 09/07/17 19:20 INR 1.02 (0.93-1.08) 09/07/17 19:20 APTT 30.0 Seconds (25.1-36.5) 09/07/17 19:20 Attending/Attestation - Attestation I have personally seen and examined this patient.: Yes I have fully participated in the care of the patient.: Yes I have reviewed all pertinent clinical information, including history, physical exam and plan: Yes Notes (Text): 09/11/17 14:51 Medical record note made by the resident after discussion with my direction and input after the patient was personally seen and examined by me. I have reviewed the chart and agree that the record accurately reflects by personal performance of the history, physical exam, data review, and medical decision-making, in the course for the patient. I have also personally directed the plan of care. 52 yrs old female with PMHx of COPD,Mitral valave stenosis, Pulmonary HTN and diastolic CHF was admitted with shortness of breath, multifactorial due to COPD exacerbation and acute on chronic diastolic CHF .Patient wheezing has improved. X ray showed congestion,we will start patient on IV lasix, will follow up BUN and Creatinin and electrolyte.We will taper down steroid. Cardiology evaluation is appreciated. Management plan was discussed in detail with patient. Education was provided.
[2017-09-09] MEDS ORDERED: Levalbuterol 1.25 MG/3 ML Inhal Soln UD IH PRN (13:00)
[2017-09-09] MEDS ORDERED: Levalbuterol 1.25 MG/3 ML Inhal Soln UD IH SCH (14:00)
--- NOTE | 2017-09-09 14:03 | RAD ---
HISTORY: Shortness of breath COMPARISON: 09/07/2017 FINDINGS: LUNGS: The lungs are well inflated. There is persistent severe pulmonary venous congestion. There is haziness in the lungs likely related to alveolar pulmonary edema with PLEURA: No significant pleural effusion identified, no pneumothorax apparent. CARDIOVASCULAR: The heart remains enlarged with prominent central vasculature PICC OSSEOUS STRUCTURES: No significant abnormalities. VISUALIZED UPPER ABDOMEN: Normal. OTHER FINDINGS: None. IMPRESSION: No change in presumable congestive heart failure.
[2017-09-09] MEDS ORDERED: Ipratropium 0.02% Inhal Soln (0.5 mg/2.5 ml) UD IH PRN (17:23)
--- NOTE | 2017-09-09 19:14 | CON ---
DATE: 09/09/2017 CARDIOLOGY CONSULTATION HISTORY OF PRESENT ILLNESS: The patient is a 52-year-old woman who presents with dyspnea. The patient was admitted one month ago for similar symptoms. On echocardiogram, she was found to have severe pulmonary hypertension as well as evidence of severe mitral stenosis, which appeared rheumatic. Her ejection fraction was normal. Attempts to try to get clearance for cardiac catheterization were unsuccessful given her insurance. Apparently, her insurance required that she go back to [place] to have her procedures done. I had an extensive discussion with her last month about this and the patient understood and agreed to go back to her physicians in the [place]. Over the past month, the patient has not done any of that and has been completely noncompliant. She presents with shortness of breath. Social history and review of systems were provided; no additional information. PHYSICAL EXAMINATION: VITAL SIGNS: Blood pressure is 104/55, heart rates in the 90s. NECK: Negative JVD. LUNGS: Clear to auscultation. HEART: Reveal S1, S2 with a soft systolic and diastolic murmur. EXTREMITIES: Without edema. EKG shows normal sinus rhythm, left bundle-branch block. LABORATORY DATA: Hemoglobin is 177. Troponins are negative. The ProBNP was 439, hemoglobin is 12.1 with a white count that is elevated. IMPRESSION: 1. Congestive heart failure. 2. Severe pulmonary hypertension. 3. Rheumatic mitral stenosis. 4. Dyspnea. 5. Noncompliance. PLAN: Given these findings, I have discussed again with the patient about her need to undergo invasive cardiac diagnostic tests, which her insurance will only allow her to have done in [facility]. The patient again agrees to have the rest of her care done in [place] when she is discharged. She is not short of breath, can transfer to telemetry today. Benjy Cancino MD
[2017-09-09] MEDS: Levalbuterol 1.25 MG/3 ML Inhal Soln UD IH SCH (20:34)
[2017-09-09] MEDS: Ipratropium 0.02% Inhal Soln (0.5 mg/2.5 ml) UD IH SCH (20:34)
[2017-09-10] MEDS: Ipratropium 0.02% Inhal Soln (0.5 mg/2.5 ml) UD IH SCH ×4 (02:52→20:07)
[2017-09-10] MEDS: Levalbuterol 1.25 MG/3 ML Inhal Soln UD IH SCH ×4 (02:53→20:07)
[2017-09-10] MEDS: Cefepime 1gm in NS 100ml 1 GM/100 ML BAG IVPB SCH ×2 (05:55→14:37)
[2017-09-10] MEDS: Pantoprazole 20 mg EC Tab PO SCH (05:56)
[2017-09-10 06:34] LABS: HEMOGLOBIN 12.3 g/dL (12.0-16.0); MEAN CELL VOLUME 88.2 fl (80.0-105.0); MEAN CORPUSCULAR HEMOGLOBIN 28.3 pg (25.0-35.0); MEAN CORPUSCULAR HGB CONC 32.1 g/dl (31.0-37.0); MEAN PLATELET VOLUME 10.5 fl (7.0-11.0); RBC 4.34 10^6/uL (3.5-6.1); RED CELL DISTRIBUTION WIDTH 14.1 % (11.5-14.5); WHITE BLOOD COUNT 21.2 10^3/ul (4.5-11.0)
[2017-09-10 07:08] LABS: ALBUMIN 4.4 g/dL (3.0-4.8); BLOOD UREA NITROGEN 17 mg/dL (7-21); CALCIUM 9.2 mg/dL (8.4-10.5); GFR AFRICAN-AMERICAN > 60; GFR NON-AFRICAN AMERICAN > 60
[2017-09-10 07:09] LABS: ALB/GLOB RATIO 1.6 (1.1-1.8); ALT/SGPT 49 U/L (7-56); AST/SGOT 25 U/L (14-36)
--- NOTE | 2017-09-10 09:01 | RAD ---
HISTORY: CHF COMPARISON: Comparison chest 09/09/2017. FINDINGS: LUNGS: Mild pulmonary vascular congestive changes of with suspected tiny bilateral effusions PLEURA: No significant pleural effusion identified, no pneumothorax apparent. CARDIOVASCULAR: Normal. OSSEOUS STRUCTURES: No significant abnormalities. VISUALIZED UPPER ABDOMEN: Normal. OTHER FINDINGS: None. IMPRESSION: Mild pulmonary vascular congestive changes of with suspected tiny bilateral effusions
[2017-09-10] MEDS: Enoxaparin 40 mg Syringe SC SCH (09:08)
[2017-09-10] MEDS: MethylPREDNISolone 40 mg Vial IVP SCH (09:08)
[2017-09-10] MEDS ORDERED: MethylPREDNISolone 40 mg Vial IVP SCH (10:00)
--- NOTE | 2017-09-10 11:23 | CP.PCM.PN ---
<Tracey English - Last Filed: 09/10/17 13:34> Subjective - Date & Time of Evaluation Date of Evaluation: 09/10/17 Time of Evaluation: 11:22 - Subjective Subjective: Internal Medicine Progress Note: Patient seen and examined at bedside. Per nursing no acute events overnight. Patient is doing well, sob improved. States that she still feels intermitted chest tightness. Denies headaches, dizziness, cp, palpitations, abdominal pain, urinary symptoms, changes in bowel habits. Objective - Vital Signs/Intake and Output Vital Signs (last 24 hours): Temp Pulse Resp BP Pulse Ox 99.3 F 89 12 105/62 98 09/10/17 08:00 09/10/17 10:40 09/10/17 10:40 09/10/17 10:00 09/10/17 10:40 Intake and Output: 09/10/17 09/10/17 06:59 18:59 Intake Total 600 Output Total 1600 Balance -1000 - Medications Medications: Current Medications Doxycycline Hyclate (Doryx) 100 mg PO Q12 JUAN ALBERTO PRN Reason: Protocol Stop: 09/17/17 10:01 Last Admin: 09/10/17 09:07 Dose: 100 mg Enoxaparin Sodium (Lovenox) 40 mg SC DAILY JUAN ALBERTO PRN Reason: Protocol Last Admin: 09/10/17 09:08 Dose: 40 mg Furosemide (Lasix) 40 mg IVP Q12 [facility] Last Admin: 09/10/17 09:09 Dose: 40 mg Cefepime HCl (Maxipime 1gm) 1 gm in 100 mls @ 100 mls/hr IVPB Q8 JUAN ALBERTO PRN Reason: Protocol Stop: 09/17/17 14:01 Last Admin: 09/10/17 05:55 Dose: 100 mls/hr Ipratropium [place] (Atrovent) 0.5 mg IH [id number] [facility] Last Admin: 09/10/17 08:09 Dose: 0.5 mg Levalbuterol HCl (Xopenex) 1.25 mg IH [id number] [facility] Last Admin: 09/10/17 08:09 Dose: 1.25 mg Methylprednisolone (Solu-Medrol) 20 mg IVP DAILY [facility] Ondansetron HCl (Zofran Inj) 4 mg IVP Q6H PRN PRN Reason: Nausea/Vomiting Pantoprazole Sodium (Protonix Ec Tab) 20 mg PO 0600 JUAN ALBERTO Last Admin: 09/10/17 05:56 Dose: 20 mg - Labs Labs: 09/10/17 05:30 09/10/17 05:30 PT 11.6 SECONDS (9.4-12.5) 09/07/17 19:20 INR 1.02 (0.93-1.08) 09/07/17 19:20 APTT 30.0 Seconds (25.1-36.5) 09/07/17 19:20 - Additional Findings Additional findings: - Constitutional Appears: No Acute Distress - Head Exam Head Exam: ATRAUMATIC, NORMAL INSPECTION, NORMOCEPHALIC - Eye Exam Eye Exam: EOMI, Normal appearance - ENT Exam ENT Exam: Mucous Membranes Moist - Neck Exam Neck Exam: Full ROM - Respiratory Exam Respiratory Exam: Decreased Breath Sounds, Rales, NORMAL BREATHING PATTERN. absent: Rhonchi - Cardiovascular Exam Cardiovascular Exam: REGULAR RHYTHM, +S1, +S2 - GI/Abdominal Exam GI & Abdominal Exam: Soft, Normal Bowel Sounds. absent: Guarding, Rigid, Tenderness - Extremities Exam Extremities Exam: Normal Inspection - Back Exam Back Exam: NORMAL INSPECTION - Neurological Exam Neurological Exam: Alert, Awake, Oriented x3 - Psychiatric Exam Psychiatric exam: Normal Affect, Normal Mood - Skin Skin Exam: Dry, Normal Color, Warm Assessment and Plan - Assessment and Plan (Free Text) Assessment: 52yo female with history of asthma with recent intubation from respiratory failure (07/31/17), valvular heart disease and pulmonary HTN who presents with complaints of SOB. 1. Shortness of breath secondary to acute asthma exacerbation vs CHF exacerbation vs Healthcare associated Pneumonia -Patient was admitted to ICU for concern for possible respiratory failure on presentation -Patient downgraded to Telemetry -CT Chest: moderate to extensive diffuse groundglass opacities; few pulmonary nodules up to 0.3cm, small cyst/bulla RLL -CXR 09/09: persistent severe pulmonary venous congestion -CXR 09/10: mild pulmonary vascular congestive changes with suspected tiny bilateral effusions -Continue Xopenex q6h PRN; atrovent q6H prn -Continue Solumedrol 20mg daily -Lasix 40mg Q12H -Continue Cefepime, Doxycycline per ID recommendations -Urine legionella and influenza negative; HIV negative -Blood cultures no growth x 48 hours; procal <0.05 -F/U s. pneumo, mycoplasma, sputum culture -ID consulted - Dr. May -Continue BiPAP as indicated -CTA negative for PE 2. Valvular disease/Pulmonary HTN -EKG on admission notable for RBBB, but previously noted on EKG during last admit, no acute changes -Troponin negative x 3 -Echo obtained during last admission (08/01/17) was notable for EF 66%, severe MR and MS, severe TR, severe pulm HTN (RVSP 69) -Patient will need cardiac catherization, this is to be done in [place] so it can be covered by insurance; advised the patient that it is imperative to her health that she does the proper follow up for her condition as she has a history of non -compliance. -Cardio consulted - Dr. Cancino 3. GI/DVT Prophylaxis -Protonix/Lovenox Patient seen and case discussed/reviewed with attending <Rudy Prieto - Last Filed: 09/11/17 14:57> Objective - Vital Signs/Intake and Output Vital Signs (last 24 hours): Temp Pulse Resp BP Pulse Ox 98 F 99 H 12 113/63 97 09/11/17 12:00 09/11/17 11:50 09/11/17 11:40 09/11/17 10:01 09/11/17 11:50 Intake and Output: 09/11/17 09/11/17 06:59 18:59 Intake Total 450 Output Total 900 Balance -450 - Labs Labs: 09/11/17 06:00 09/11/17 07:30 PT 11.6 SECONDS (9.4-12.5) 09/07/17 19:20 INR 1.02 (0.93-1.08) 09/07/17 19:20 APTT 30.0 Seconds (25.1-36.5) 09/07/17 19:20 Attending/Attestation - Attestation I have personally seen and examined this patient.: Yes I have fully participated in the care of the patient.: Yes I have reviewed all pertinent clinical information, including history, physical exam and plan: Yes Notes (Text): 09/11/17 14:55 Medical record note made by the resident after discussion with my direction and input after the patient was personally seen and examined by me. I have reviewed the chart and agree that the record accurately reflects by personal performance of the history, physical exam, data review, and medical decision-making, in the course for the patient. I have also personally directed the plan of care. 52 yrs old female with PMHx of COPD,Mitral valave stenosis, Pulmonary HTN and diastolic CHF was admitted with shortness of breath, multifactorial due to COPD exacerbation and acute on chronic diastolic CHF .Patient has responded well to IV lasix. We will continue IV lasix, Renal functions are stable. Patient is planing to follow up with CT surgery in [place] Management plan was discussed in detail with patient. Education was provided.
--- NOTE | 2017-09-10 14:26 | PN ---
DATE: 09/10/2017 CARDIOLOGY FOLLOWUP SUBJECTIVE: The patient's respiratory distress last night is now resolved with IV Lasix. PHYSICAL EXAMINATION: VITAL SIGNS: Blood pressure 109/80, heart rates in the 90s, normal sinus rhythm. NECK: Negative JVD. LUNGS: Clear to auscultation. HEART: Reveals S1, S2 with a positive systolic murmur. LABORATORY DATA: Hemoglobin is 12. Chemistries, BUN and creatinine unremarkable, glucose is 163. IMPRESSION: 1. Status post congestive heart failure. 2. Mitral stenosis. 3. Noncompliance to medical advice. 4. Dyspnea, which is better. 5. Severe pulmonary hypertension. Given these findings, we will continue the patient on Lasix. I have discussed once again about the need to actively take care of her health. The patient's insurance requires that she goes to [place] to continue her cardiac care. 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 Benjy Cancino MD
--- NOTE | 2017-09-10 22:57 | PN ---
DATE: 09/10/2017 SUBJECTIVE: The patient is in bed, in no acute distress, was seen earlier this morning in 128, bed 2. No fevers or chills. No nausea. PHYSICAL EXAMINATION: VITAL SIGNS: Temperature is 98, blood pressure is 112/70, respiratory rate of 18, heart rate of 94. HEENT: Unremarkable. NECK: Supple. LUNGS: Have decreased breath sounds. HEART: Normal S1 and S2. ABDOMEN: Soft, nontender. LABORATORY DATA: Reveals a white count of 21,200, hemoglobin of 12, platelets of 295. Chemistry reveals the BUN of 17, creatinine of 0.7, procalcitonin is less than 0.5. Serology HIV is negative. Influenza is negative. Urine Legionella antigen is negative. Blood cultures are negative. Rest of screen is negative. MEDICATIONS: Review of medications reveal the patient to be on p.o. doxycycline and IV cefepime. The patient had a chest x-ray this morning. Chest x-ray shows a mild pulmonary vascular congestion of chest suspecting bilateral effusion and Dr. Benjy Cancino's note is reviewed. ASSESSMENT AND PLAN: This is a 52-year-old female with sepsis due to healthcare-associated pneumonia on top of severe acute asthma exacerbation, on cefepime and doxycycline day #3 with negative exam, negative procalcitonin, negative cultures. We will discontinue the cefepime with complete 5-7 days of doxycycline. Adam May MD
[2017-09-11] MEDS: Levalbuterol 1.25 MG/3 ML Inhal Soln UD IH SCH ×2 (02:27→08:35)
[2017-09-11] MEDS: Ipratropium 0.02% Inhal Soln (0.5 mg/2.5 ml) UD IH SCH ×2 (02:27→08:35)
[2017-09-11] MEDS: Pantoprazole 20 mg EC Tab PO SCH (05:50)
--- NOTE | 2017-09-11 06:53 | CP.PCM.DIS ---
<Tracey English - Last Filed: 09/11/17 12:51> Provider - Provider Date of Admission: 09/07/17 20:39 Attending physician: Rudy Prieto MD Consults: Cardiology: Dr Cancino Infectious Disease: Dr May Time Spent in preparation of Discharge (in minutes): 35 Hospital Course - Lab Results Lab Results: Micro Results 09/08/17 02:00 Blood Blood Culture - Preliminary NO GROWTH AFTER 3 DAYS 09/08/17 01:30 Blood Blood Culture - Preliminary NO GROWTH AFTER 3 DAYS 09/08/17 00:30 Naris MRSA Culture (Admit) - Final MRSA NOT DETECTED Most Recent Lab Values WBC 21.2 10^3/ul (4.5-11.0) H 09/10/17 05:30 RBC 4.34 10^6/uL (3.5-6.1) 09/10/17 05:30 Hgb 12.3 g/dL (12.0-16.0) 09/10/17 05:30 Hct 38.3 % (36.0-48.0) 09/10/17 05:30 MCV 88.2 fl (80.0-105.0) 09/10/17 05:30 MCH 28.3 pg (25.0-35.0) 09/10/17 05:30 MCHC 32.1 g/dl (31.0-37.0) 09/10/17 05:30 RDW 14.1 % (11.5-14.5) 09/10/17 05:30 Plt Count 295 10^3/uL (120.0-450.0) 09/10/17 05:30 MPV 10.5 fl (7.0-11.0) 09/10/17 05:30 Gran % 94.9 % (50.0-68.0) H 09/08/17 05:15 Lymph % (Auto) 4.1 % (22.0-35.0) L 09/08/17 05:15 [place] % (Auto) 0.9 % (1.0-6.0) L 09/08/17 05:15 Eos % (Auto) 0.0 % (1.5-5.0) L 09/08/17 05:15 Baso % (Auto) 0.1 % (0.0-3.0) 09/08/17 05:15 Gran # 16.13 (1.4-6.5) H 09/08/17 05:15 Lymph # (Auto) 0.7 (1.2-3.4) L 09/08/17 05:15 [place] # (Auto) 0.2 (0.1-0.6) 09/08/17 05:15 Eos # (Auto) 0.0 (0.0-0.7) 09/08/17 05:15 Baso # (Auto) 0.01 K/mm3 (0.0-2.0) 09/08/17 05:15 Neutrophils % (Manual) 87 % (50.0-70.0) H 09/08/17 05:15 Band Neutrophils % 2 % (0-2) 09/08/17 05:15 Lymphocytes % (Manual) 10 % (22.0-35.0) L 09/08/17 05:15 Monocytes % (Manual) 1 % (1.0-6.0) 09/08/17 05:15 Platelet Evaluation Normal (NORMAL) 09/08/17 05:15 Anisocytosis (manual) Slight 09/08/17 05:15 PT 11.6 SECONDS (9.4-12.5) 09/07/17 19:20 INR 1.02 (0.93-1.08) 09/07/17 19:20 APTT 30.0 Seconds (25.1-36.5) 09/07/17 19:20 pCO2 40 mm/Hg (35-45) 09/08/17 06:00 pO2 71.0 mm/Hg (80-100) L 09/08/17 06:00 HCO3 25.4 mmol/L (21-28) 09/08/17 06:00 ABG pH 7.41 (7.35-7.45) 09/08/17 06:00 ABG Total CO2 26.6 mmol.L (22-28) 09/08/17 06:00 ABG O2 Saturation 97.3 % (95-98) 09/08/17 06:00 ABG O2 Content 18.2 ML/dl (15-23) 09/07/17 20:25 ABG Base Excess 0.7 mmol/L (-2.0-3.0) 09/08/17 06:00 ABG Hemoglobin 13.3 g/dL (11.7-17.4) 09/07/17 20:25 ABG Carboxyhemoglobin 2.9 % (0.5-1.5) H 09/07/17 20:25 POC ABG HHb (Measured) 0 % (0-5) 09/07/17 20:25 ABG Methemoglobin 1.1 % (0.0-3.0) 09/07/17 20:25 ABG O2 Capacity 18.2 mL/dl (16-24) 09/07/17 20:25 ABG Potassium 3.5 mmol/L (3.6-5.2) L 09/08/17 06:00 VBG pH 7.33 (7.32-7.43) 09/08/17 01:30 VBG pCO2 51.0 (40-60) 09/08/17 01:30 VBG HCO3 26.9 mmol/l (21-28) 09/08/17 01:30 VBG Total CO2 28.5 mmol.L (22-28) H 09/08/17 01:30 VBG O2 Sat (Calc) 82.4 % (40-65) H 09/08/17 01:30 VBG Base Excess 0.2 mmol/L (0.0-2.0) 09/08/17 01:30 VBG Potassium 3.1 mmol/L (3.6-5.2) L 09/08/17 01:30 Hgb O2 Saturation 96.0 % (95.0-98.0) 09/07/17 20:25 Sodium 140.0 mmol/L (132-148) 09/08/17 06:00 Chloride 109.0 mmol/L (98-107) H 09/08/17 06:00 Glucose 248 mg/dl (65-105) H 09/08/17 06:00 Lactate 1.4 mmol/L (0.7-2.1) 09/08/17 06:00 FiO2 32.0 % 09/08/17 06:00 Sodium 141 mmol/L (132-148) 09/10/17 05:30 Potassium 3.7 mmol/L (3.6-5.0) 09/10/17 05:30 Chloride 98 mmol/L (98-107) 09/10/17 05:30 Carbon Dioxide 32 mmol/L (21-33) 09/10/17 05:30 Anion Gap 15 (10-20) 09/10/17 05:30 BUN 17 mg/dL (7-21) 09/10/17 05:30 Creatinine 0.7 mg/dl (0.7-1.2) 09/10/17 05:30 Est GFR ( Amer) > 60 09/10/17 05:30 Est GFR (Non-Af Amer) > 60 09/10/17 05:30 Random Glucose 163 mg/dL (70-110) H 09/10/17 05:30 Calcium 9.2 mg/dL (8.4-10.5) 09/10/17 05:30 Phosphorus 3.0 mg/dL (2.5-4.5) 09/08/17 05:15 Magnesium 2.2 mg/dL (1.7-2.2) 09/08/17 05:15 Total Bilirubin 0.8 mg/dL (0.2-1.3) 09/10/17 05:30 AST 25 U/L (14-36) 09/10/17 05:30 ALT 49 U/L (7-56) 09/10/17 05:30 Alkaline Phosphatase 63 U/L (38-126) 09/10/17 05:30 Lactate Dehydrogenase 704 U/L (333-699) H 09/07/17 19:20 Total Creatine Kinase 179 U/L (35-230) 09/07/17 19:20 Troponin I 0.02 ng/mL D 09/08/17 05:15 NT-Pro-B Natriuret Pep 439 pg/mL (0-450) 09/07/17 19:20 Total Protein 7.2 g/dL (5.8-8.3) 09/10/17 05:30 Albumin 4.4 g/dL (3.0-4.8) 09/10/17 05:30 Globulin 2.7 gm/dL 09/10/17 05:30 Albumin/Globulin Ratio 1.6 (1.1-1.8) 09/10/17 05:30 Procalcitonin < 0.05 NG/ML (0.19-0.49) L 09/07/17 22:00 Arterial Blood Potassium 3.5 mmol/L (3.6-5.2) L 09/08/17 06:00 Venous Blood Potassium 3.1 mmol/L (3.6-5.2) L 09/08/17 01:30 Urine Color Yellow (YELLOW) 09/07/17 22:00 Urine Appearance Clear (CLEAR) 09/07/17 22:00 Urine pH 6.0 (4.7-8.0) 09/07/17 22:00 Ur Specific [place] 1.015 (1.005-1.035) 09/07/17 22:00 Urine Protein Negative mg/dL (<30 mg/dL) 09/07/17 22:00 Urine Glucose (UA) Negative mg/dL (NEGATIVE) 09/07/17 22:00 Urine Ketones Negative mg/dL (NEGATIVE) 09/07/17 22:00 Urine Blood Trace-intact (NEGATIVE) H 09/07/17 22:00 Urine Nitrate Negative (NEGATIVE) 09/07/17 22:00 Urine Bilirubin Negative (NEGATIVE) 09/07/17 22:00 Urine Urobilinogen 0.2 E.U./dL (<1 E.U./dL) 09/07/17 22:00 Ur Leukocyte Esterase Trace Germán/uL (NEGATIVE) H 09/07/17 22:00 Urine RBC 0 - 2 /hpf (0-2) 09/07/17 22:00 Urine WBC 0 - 2 /hpf (0-6) 09/07/17 22:00 Ur Epithelial Cells 0 - 2 /hpf (0-5) 09/07/17 22:00 Urine HCG, Qual Negative (NEGATIVE) 09/09/17 05:30 Urine Opiates Screen Negative (NEGATIVE) 09/07/17 22:00 Urine Methadone Screen Negative (NEGATIVE) 09/07/17 22:00 Ur Barbiturates Screen Negative (NEGATIVE) 09/07/17 22:00 Ur Phencyclidine Scrn Negative (NEGATIVE) 09/07/17 22:00 Ur Amphetamines Screen Negative (NEGATIVE) 09/07/17 22:00 U Benzodiazepines Scrn Negative (NEGATIVE) 09/07/17 22:00 U Oth Cocaine Metabols Negative (NEGATIVE) 09/07/17 22:00 U Cannabinoids Screen Negative (NEGATIVE) 09/07/17 22:00 HIV 1&2 Ag/Ab, 4th Gen Nonreactive (Nonreactive) 09/09/17 05:00 Influenza Typ A,B (EIA) Negative for flu a/b (NEGATIVE) 09/08/17 08:50 Ur L.pneumophila Ag Negative (NEGATIVE) 09/08/17 08:15 Mycoplasma pneumon IgM 9 U/mL (<770) 09/08/17 05:15 - Hospital Course Hospital Course: History of Present Illness: This is a 52 yo F with PMH of asthma, recent intubation for hypercapnic hypoxic respiratory failure (07/31/17), prior tobacco abuse (quit 6 months ago, 1ppd > 20 yrs), and recently discovered valvular heart disease with pulmonary HTN who represents for shortness of breath. As per patient, she has had progressively worsening shortness of breath x1 week, with an acute worsening today that pt describes as "like getting hit by a brick." Pt admits nausea, but denies emesis , aspiration, sensation of choking, or inability to swallow/voluntarily clear throat. Shortness of breath worsened with exertion but still notably present at rest. Denies chest pain, productive cough, fevers, chills, nausea, emesis, diarrhea, dysuria, focal weakness, or acute swelling of extremities/abdomen. Of note, during last admission, echo was notable for pulm HTN with RSVP of 69, severe TR, and severe MR/MS. She was instructed to follow up with a PMD and a devulcanizer head on discharge, but admits to having not followed up with anyone. She does report compliance with medication regimen, however; she completed her courses of Zithromax and Augmentin since discharge last month, and is still taking daily demadex, on which she produces good urine. All other ROS in 12- system review negative. In the ED, pt was started on Bipap, with concern of tachypnea of 30's-40's and accessory muscle use. After > 1 hr on Bipap, Duonebs x3, Mag Sulfate 1g x1, and Solumedrol 125mg x1, ABG was obtained, notable (pH now 7.35), pCO2 45, pO2 156, and HCO3 of 25.4. Accessory muscle use was lessened, and improved breath sounds were appreciated on exam Hospital Course: Patient was admitted to the ICU for closer monitoring and started on IV broad spectrum antibiotics for possible pneumonia (IV Vancomycin, Cefepime, Doxycycline). Also started on IV solumedrol for asthma/copd exacerbation. CT chest showed moderate to extensive groundglass opacities, few pulmonary nodules up to 0.3cm. Patient was started on IV lasix and Bipap prn. ABG improved. Patient was downgraded to telemetry. Blood cultures were negative. Legionella, mycoplasma, influenza negative. Procalcitonin was low. Vancomycin and Cefepime were discontinued. Patient has a history of severe pulmonary hypertension with significant valvular disease. Cardiology was consulted, patient strongly advised on how imperative it is to follow up with Cardiology outpatient for further workup. Her insurance will not cover cardiac catherization at [facility], she will need to have this done in [place]. Patient verbalized understanding. Patient was improving clinically. On day of discharge patient was doing well, breathing improved. Patient ambulated without supplemental O2, and maintained saturation 93-94% on room air. Patient medically stable for discharge home, please follow up with PMD and Cardiology within 1 week. Advised to please continue low salt diet, daily fluid restriction and daily weights at home. All medications were reconciled and sent to [facility] [place] pharmacy. Also will need repeat CT chest in 12 months for evaluation of pulmonary nodules incidently seen on CT chest. Discharge Medications -Prednisone taper -Protonix 20mg PO daily -Lasix 40mg PO Q12H -Potassium 20meq PO daily -Ventolin inhaler/Flovent -Doxycycline 100mg Q12H x 4 days Discharge Exam - Head Exam Head Exam: ATRAUMATIC, NORMAL INSPECTION, NORMOCEPHALIC - Eye Exam Eye Exam: EOMI, Normal appearance Pupil Exam: NORMAL ACCOMODATION - ENT Exam ENT Exam: Mucous Membranes Moist - Respiratory Exam Respiratory Exam: Clear to PA & Lateral, NORMAL BREATHING PATTERN, UNREMARKABLE. absent: Rales, Rhonchi, Wheezes - Cardiovascular Exam Cardiovascular Exam: REGULAR RHYTHM, +S1, +S2 - GI/Abdominal Exam GI & Abdominal Exam: Normal Bowel Sounds, Soft, Unremarkable. absent: Guarding , Rebound, Rigid, Tenderness - Extremities Exam Extremities exam: normal inspection - Back Exam Back exam: NORMAL INSPECTION - Neurological Exam Neurological exam: Alert, CN II-XII Intact, Normal Gait, Oriented x3 - Psychiatric Exam Psychiatric exam: Normal Affect, Normal Mood - Skin Skin Exam: Dry, Normal Color, Warm Discharge Plan - Discharge Medications Prescriptions: Doxycycline Hyclate 100 mg PO Q12 #8 capsule Fluticasone/Salmeterol 250/50 [Advair Diskus] 1 puff IH Q12 #1 dsk Furosemide [Lasix] 40 mg PO BID #60 tablet Pantoprazole [Protonix EC Tab] 20 mg PO DAILY #4 ect Potassium Chloride [K-Dur 20] 20 meq PO DAILY #30 tab predniSONE [predniSONE Tab] See Taper PO DAILY #4 tab - Follow Up Plan Condition: FAIR Disposition: HOME/ ROUTINE Instructions: Pulmonary Hypertension in Adults, Pneumonia, Adult (DC), Exacerbation of COPD (DC), Pneumococcal Polysaccharide Vaccine (23-Valent) Additional Instructions: 1. Patient is clear for discharge home 2. Please continue steroid taper, and take steroids with protonix 3. Please continue antibiotics as prescribed 4. Continue low salt diet, daily weights, and daily fluid restriction (1.5L) 5. You must follow up with [facility] for outpatient workup, this is imperative to your health 6. Please follow up with PMD within 1 week, 7. Also will need repeat CT chest in 12 months for evaluation of pulmonary nodules. 8. If having any worsening of symptoms, please go to nearest ED <Rudy Prieto - Last Filed: 09/11/17 15:02> Provider - Provider Date of Admission: 09/07/17 20:39 Attending physician: Rudy Prieto MD Hospital Course - Lab Results Lab Results: Micro Results 09/08/17 02:00 Blood Blood Culture - Preliminary NO GROWTH AFTER 3 DAYS 09/08/17 01:30 Blood Blood Culture - Preliminary NO GROWTH AFTER 3 DAYS 09/08/17 00:30 Naris MRSA Culture (Admit) - Final MRSA NOT DETECTED Most Recent Lab Values WBC 15.6 10^3/ul (4.5-11.0) H D 09/11/17 06:00 RBC 4.91 10^6/uL (3.5-6.1) 09/11/17 06:00 Hgb 14.0 g/dL (12.0-16.0) 09/11/17 06:00 Hct 43.3 % (36.0-48.0) 09/11/17 06:00 MCV 88.2 fl (80.0-105.0) 09/11/17 06:00 MCH 28.5 pg (25.0-35.0) 09/11/17 06:00 MCHC 32.3 g/dl (31.0-37.0) 09/11/17 06:00 RDW 14.0 % (11.5-14.5) 09/11/17 06:00 Plt Count 299 10^3/uL (120.0-450.0) 09/11/17 06:00 MPV 10.3 fl (7.0-11.0) 09/11/17 06:00 Gran % 94.9 % (50.0-68.0) H 09/08/17 05:15 Lymph % (Auto) 4.1 % (22.0-35.0) L 09/08/17 05:15 [place] % (Auto) 0.9 % (1.0-6.0) L 09/08/17 05:15 Eos % (Auto) 0.0 % (1.5-5.0) L 09/08/17 05:15 Baso % (Auto) 0.1 % (0.0-3.0) 09/08/17 05:15 Gran # 16.13 (1.4-6.5) H 09/08/17 05:15 Lymph # (Auto) 0.7 (1.2-3.4) L 09/08/17 05:15 [place] # (Auto) 0.2 (0.1-0.6) 09/08/17 05:15 Eos # (Auto) 0.0 (0.0-0.7) 09/08/17 05:15 Baso # (Auto) 0.01 K/mm3 (0.0-2.0) 09/08/17 05:15 Neutrophils % (Manual) 87 % (50.0-70.0) H 09/08/17 05:15 Band Neutrophils % 2 % (0-2) 09/08/17 05:15 Lymphocytes % (Manual) 10 % (22.0-35.0) L 09/08/17 05:15 Monocytes % (Manual) 1 % (1.0-6.0) 09/08/17 05:15 Platelet Evaluation Normal (NORMAL) 09/08/17 05:15 Anisocytosis (manual) Slight 09/08/17 05:15 PT 11.6 SECONDS (9.4-12.5) 09/07/17 19:20 INR 1.02 (0.93-1.08) 09/07/17 19:20 APTT 30.0 Seconds (25.1-36.5) 09/07/17 19:20 pCO2 40 mm/Hg (35-45) 09/08/17 06:00 pO2 71.0 mm/Hg (80-100) L 09/08/17 06:00 HCO3 25.4 mmol/L (21-28) 09/08/17 06:00 ABG pH 7.41 (7.35-7.45) 09/08/17 06:00 ABG Total CO2 26.6 mmol.L (22-28) 09/08/17 06:00 ABG O2 Saturation 97.3 % (95-98) 09/08/17 06:00 ABG O2 Content 18.2 ML/dl (15-23) 09/07/17 20:25 ABG Base Excess 0.7 mmol/L (-2.0-3.0) 09/08/17 06:00 ABG Hemoglobin 13.3 g/dL (11.7-17.4) 09/07/17 20:25 ABG Carboxyhemoglobin 2.9 % (0.5-1.5) H 09/07/17 20:25 POC ABG HHb (Measured) 0 % (0-5) 09/07/17 20:25 ABG Methemoglobin 1.1 % (0.0-3.0) 09/07/17 20:25 ABG O2 Capacity 18.2 mL/dl (16-24) 09/07/17 20:25 ABG Potassium 3.5 mmol/L (3.6-5.2) L 09/08/17 06:00 VBG pH 7.33 (7.32-7.43) 09/08/17 01:30 VBG pCO2 51.0 (40-60) 09/08/17 01:30 VBG HCO3 26.9 mmol/l (21-28) 09/08/17 01:30 VBG Total CO2 28.5 mmol.L (22-28) H 09/08/17 01:30 VBG O2 Sat (Calc) 82.4 % (40-65) H 09/08/17 01:30 VBG Base Excess 0.2 mmol/L (0.0-2.0) 09/08/17 01:30 VBG Potassium 3.1 mmol/L (3.6-5.2) L 09/08/17 01:30 Hgb O2 Saturation 96.0 % (95.0-98.0) 09/07/17 20:25 Sodium 140.0 mmol/L (132-148) 09/08/17 06:00 Chloride 109.0 mmol/L (98-107) H 09/08/17 06:00 Glucose 248 mg/dl (65-105) H 09/08/17 06:00 Lactate 1.4 mmol/L (0.7-2.1) 09/08/17 06:00 FiO2 32.0 % 09/08/17 06:00 Sodium 142 mmol/L (132-148) 09/11/17 07:30 Potassium 3.1 mmol/L (3.6-5.0) L 09/11/17 07:30 Chloride 93 mmol/L (98-107) L 09/11/17 07:30 Carbon Dioxide 39 mmol/L (21-33) H 09/11/17 07:30 Anion Gap 13 (10-20) 09/11/17 07:30 BUN 20 mg/dL (7-21) 09/11/17 07:30 Creatinine 0.8 mg/dl (0.7-1.2) 09/11/17 07:30 Est GFR ( Amer) > 60 09/11/17 07:30 Est GFR (Non-Af Amer) > 60 09/11/17 07:30 Random Glucose 112 mg/dL (70-110) H 09/11/17 07:30 Calcium 9.6 mg/dL (8.4-10.5) 09/11/17 07:30 Phosphorus 3.0 mg/dL (2.5-4.5) 09/08/17 05:15 Magnesium 2.2 mg/dL (1.7-2.2) 09/08/17 05:15 Total Bilirubin 0.9 mg/dL (0.2-1.3) 09/11/17 07:30 AST 28 U/L (14-36) 09/11/17 07:30 ALT 60 U/L (7-56) H 09/11/17 07:30 Alkaline Phosphatase 76 U/L (38-126) 09/11/17 07:30 Lactate Dehydrogenase 704 U/L (333-699) H 09/07/17 19:20 Total Creatine Kinase 179 U/L (35-230) 09/07/17 19:20 Troponin I 0.02 ng/mL D 09/08/17 05:15 NT-Pro-B Natriuret Pep 439 pg/mL (0-450) 09/07/17 19:20 Total Protein 8.2 g/dL (5.8-8.3) 09/11/17 07:30 Albumin 4.8 g/dL (3.0-4.8) 09/11/17 07:30 Globulin 3.3 gm/dL 09/11/17 07:30 Albumin/Globulin Ratio 1.5 (1.1-1.8) 09/11/17 07:30 Procalcitonin < 0.05 NG/ML (0.19-0.49) L 09/07/17 22:00 Arterial Blood Potassium 3.5 mmol/L (3.6-5.2) L 09/08/17 06:00 Venous Blood Potassium 3.1 mmol/L (3.6-5.2) L 09/08/17 01:30 Urine Color Yellow (YELLOW) 09/07/17 22:00 Urine Appearance Clear (CLEAR) 09/07/17 22:00 Urine pH 6.0 (4.7-8.0) 09/07/17 22:00 Ur Specific [place] 1.015 (1.005-1.035) 09/07/17 22:00 Urine Protein Negative mg/dL (<30 mg/dL) 09/07/17 22:00 Urine Glucose (UA) Negative mg/dL (NEGATIVE) 09/07/17 22:00 Urine Ketones Negative mg/dL (NEGATIVE) 09/07/17 22:00 Urine Blood Trace-intact (NEGATIVE) H 09/07/17 22:00 Urine Nitrate Negative (NEGATIVE) 09/07/17 22:00 Urine Bilirubin Negative (NEGATIVE) 09/07/17 22:00 Urine Urobilinogen 0.2 E.U./dL (<1 E.U./dL) 09/07/17 22:00 Ur Leukocyte Esterase Trace Germán/uL (NEGATIVE) H 09/07/17 22:00 Urine RBC 0 - 2 /hpf (0-2) 09/07/17 22:00 Urine WBC 0 - 2 /hpf (0-6) 09/07/17 22:00 Ur Epithelial Cells 0 - 2 /hpf (0-5) 09/07/17 22:00 Urine HCG, Qual Negative (NEGATIVE) 09/09/17 05:30 Urine Opiates Screen Negative (NEGATIVE) 09/07/17 22:00 Urine Methadone Screen Negative (NEGATIVE) 09/07/17 22:00 Ur Barbiturates Screen Negative (NEGATIVE) 09/07/17 22:00 Ur Phencyclidine Scrn Negative (NEGATIVE) 09/07/17 22:00 Ur Amphetamines Screen Negative (NEGATIVE) 09/07/17 22:00 U Benzodiazepines Scrn Negative (NEGATIVE) 09/07/17 22:00 U Oth Cocaine Metabols Negative (NEGATIVE) 09/07/17 22:00 U Cannabinoids Screen Negative (NEGATIVE) 09/07/17 22:00 HIV 1&2 Ag/Ab, 4th Gen Nonreactive (Nonreactive) 09/09/17 05:00 Influenza Typ A,B (EIA) Negative for flu a/b (NEGATIVE) 09/08/17 08:50 Ur L.pneumophila Ag Negative (NEGATIVE) 09/08/17 08:15 Mycoplasma pneumon IgM 9 U/mL (<770) 09/08/17 05:15 Attending/Attestation - Attestation I have personally seen and examined this patient.: Yes I have fully participated in the care of the patient.: Yes I have reviewed all pertinent clinical information, including history, physical exam and plan: Yes Notes (Text): 09/11/17 14:59 Medical record note made by the resident after discussion with my direction and input after the patient was personally seen and examined by me. I have reviewed the chart and agree that the record accurately reflects by personal performance of the history, physical exam, data review, and medical decision-making, in the course for the patient. I have also personally directed the plan of care. 52 yrs old female with PMHx of COPD,Mitral valave stenosis, Pulmonary HTN and diastolic CHF was admitted with shortness of breath, multifactorial due to COPD exacerbation and acute on chronic diastolic CHF .Patient cough and dyspne ahas improved.Renal functions are stable.She is ambulatory and is on room air.Lasix will be changed to 40 mg PO BID at the time of discharge, along with K supplement. Patient will be discharged home on tapering dose of Prednisone. The issue of early follow up with cardiology and CT surgery was discussed in detail with her. Management plan was discussed in detail with patient. Education was provided.
[2017-09-11 07:10] LABS: MEAN CELL VOLUME 88.2 fl (80.0-105.0); MEAN CORPUSCULAR HEMOGLOBIN 28.5 pg (25.0-35.0); MEAN CORPUSCULAR HGB CONC 32.3 g/dl (31.0-37.0); MEAN PLATELET VOLUME 10.3 fl (7.0-11.0); RBC 4.91 10^6/uL (3.5-6.1); WHITE BLOOD COUNT 15.6 10^3/ul (4.5-11.0)
[2017-09-11 07:53] LABS: ALB/GLOB RATIO 1.5 (1.1-1.8); ALBUMIN 4.8 g/dL (3.0-4.8); ALT/SGPT 60 U/L (7-56); AST/SGOT 28 U/L (14-36); BLOOD UREA NITROGEN 20 mg/dL (7-21); CALCIUM 9.6 mg/dL (8.4-10.5); GFR AFRICAN-AMERICAN > 60; GFR NON-AFRICAN AMERICAN > 60
[2017-09-11] MEDS ORDERED: Potassium Chloride 20 mEq ER Tab PO STA ×2 (08:00)
[2017-09-11] MEDS: Enoxaparin 40 mg Syringe SC SCH (09:40)
[2017-09-11 11:21] VITALS: BP 113/63
[2017-09-11 12:16] VITALS: PULSE 99; RESP 12; O2SAT 97
[2017-09-11 12:23] VITALS: TEMP 98
--- NOTE | 2017-09-11 13:46 | PN ---
DATE: 09/11/2017 CARDIOLOGY FOLLOWUP The patient is breathing better. OBJECTIVE VITAL SIGNS: Stable. NECK: Negative JVD. LUNGS: Without rales. HEART: Reveals 2/6 systolic murmur. EXTREMITIES: Without edema. LABORATORY DATA: Hemoglobin is 14. Chemistries, BUN and creatinine unremarkable. IMPRESSION 1. Congestive heart failure. 2. Mitral stenosis. 3. Dyspnea. Given these findings, the patient has an appointment with her doctors in [place] where her insurance allow her and continue procedures as well as possible surgery for her mitral valve disease. Benjy Cancino MD
[2017-09-12 00:49] LABS: SOURCE SERUM
--- NOTE | 2017-09-12 04:06 | PN ---
DATE: 09/11/2017 SUBJECTIVE: Patient seen early this morning, in no acute distress, nontoxic. PHYSICAL EXAMINATION: VITAL SIGNS: Temperature is 98, blood pressure is 120/70, respiratory rate 16. HEENT: Unremarkable. NECK: Supple. LUNGS: Have decreased breath sounds. HEART: Normal S1 and S2. ABDOMEN: Soft. LABORATORY EXAMINATION: Reveals a white count of 15,600. BUN of 20, creatinine 0.8 and cultures are reported to be negative. Blood cultures are negative. ASSESSMENT AND PLAN: A 52-year-old female with sepsis due to healthcare-associated pneumonia on top of severe acute asthma exacerbation, on cefepime and doxycycline day #4. Negative procalcitonin and will complete 5-7 days of doxycycline. The patient was seen earlier this morning in the Intensive Care Unit, doing much better. Adam May MD
== END 2017-09-11 14:09 | disposition home or self-care (01) | DRG 584 ==
LOC: ED 19:16 → ERH 20:39 → ICU 23:33
PROVIDERS: ADMIT Internal Medicine; ATTEND Internal Medicine
PROC: 5A09357 Assistance with Respiratory Ventilation, Less than 24 Consecutive Hours, Continuous Positive Airway Pressure (ICD-10-PCS; principal; 2017-09-07)
DX: A41.9 Sepsis, unspecified organism (principal); J18.9 Pneumonia, unspecified organism; I50.33 Acute on chronic diastolic (congestive) heart failure; J45.901 Unspecified asthma with (acute) exacerbation; J44.0 Chronic obstructive pulmonary disease with (acute) lower respiratory infection; J44.1 Chronic obstructive pulmonary disease with (acute) exacerbation; R06.03 Acute respiratory distress; Y95 Nosocomial condition; I05.2 Rheumatic mitral stenosis with insufficiency; Z91.14 Patient's other noncompliance with medication regimen; I27.20 Pulmonary hypertension, unspecified; Z87.891 Personal history of nicotine dependence; Z91.19 Patient's noncompliance with other medical treatment and regimen; R91.8 Other nonspecific abnormal finding of lung field